=== PATIENT | female | born 1950 | race Caucasian/White ===

== ENCOUNTER 2017-01-14 10:46 | Emergency (ER) | payer OTHER, MEDICAID ==
[~2017-01-14] VITALS: Ht 162.6 cm; Wt 104.3 kg
[2017-01-14 11:00] VITALS: BP 109/57
--- NOTE | 2017-01-14 11:50 | NUR ---
PATIENT WHEELCHAIR ASSISTED TO BED 5.
--- NOTE | 2017-01-14 12:05 | NUR ---
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 WILL CONTINUE TO MONITOR.
[2017-01-14] MEDS ORDERED: BELLADONNA/PHENOBARBITAL 1 TAB PO ONE (12:20)
[2017-01-14] MEDS ORDERED: ALUMINUM HYD/MAG/SIMETHICONE 30 ML UDC PO ONE (12:20)
[2017-01-14] MEDS ORDERED: LIDOCAINE VISCOUS 2% 20 ML UDC PO ONE (12:20)
--- NOTE | 2017-01-14 12:40 | NUR ---
XRAY AT BEDSIDE.
[2017-01-14] MEDS ORDERED: DICYCLOMINE HCL LIQUID 10 MG/5 ML UDC PO ONE (12:45)
[2017-01-14] MEDS ORDERED: ASPIRIN 325 MG TAB PO ONE (12:50)
[2017-01-14] MEDS ORDERED: LOSARTAN POTAS100 MG PO (13:52)
[2017-01-14] MEDS ORDERED: GLUCOTROL10 MG PO (13:52)
[2017-01-14] MEDS ORDERED: Q-PAP325 MG PO (13:52)
[2017-01-14] MEDS ORDERED: TOPAMAX100 MG PO (13:52)
[2017-01-14] MEDS ORDERED: KEPPRA750 MG PO (13:52)
[2017-01-14] MEDS ORDERED: ATIVAN1 MG PO (13:52)
[2017-01-14] MEDS ORDERED: NORCO 325 MG-51 TAB PO (13:52)
[2017-01-14] MEDS ORDERED: ZOCOR20 MG PO (13:52)
[2017-01-14] MEDS ORDERED: PROTONIX40 MG PO (13:52)
--- NOTE | 2017-01-14 14:30 | NUR ---
Patient appears to be resting comfortably in bed. Vital Signs within normal limits. Respirations even and unlabored. TRENCH DIGGING MACHINE OPERATOR AT BEDSIDE; WILL CONTINUE TO MONITOR.
--- NOTE | 2017-01-14 15:20 | NUR ---
IV removed, catheter intact and site benign. Applied folded 4x4 gauze and tape to stop bleeding. PT TOLERATED PROCEDURE WELL.
[2017-01-14 15:25] VITALS: BP 108/69
--- NOTE | 2017-01-14 15:25 | NUR ---
Patient discharged with v/s stable. Written and verbal after care instructions given and explained. Patient alert, oriented and verbalized understanding of instructions. Wheel Chair Assisted with by caregiver. All questions addressed prior to discharge. ID band removed. Patient advised to follow up with PMD. Rx of FLOMAX 0.4MG CAP & CIPROFLOXACIN HYDROCHLORIDE 500MG TAB given. Patient educated on indication of medication including possible reaction and side effects. Opportunity to ask questions provided and answered.
== END 2017-01-14 15:25 | disposition home or self-care (01) ==
LOC: MED 10:46
DX: N39.0 Urinary tract infection, site not specified (principal); N20.0 Calculus of kidney; I10 Essential (primary) hypertension
CPT/HCPCS: 36415; 71010; 74177; 80053; 81001; 82150; 82948; 83605; 83690; 84484; 85025; 87086; 87186; 93005; 99285; Q0092; Q9967

== ENCOUNTER 2019-03-15 21:32 | Inpatient (IN) | payer OTHER, MEDICAID ==
[~2019-03-15] VITALS: Ht 165.1 cm; Wt 101.6 kg
[~2019-03-15 21:32] MED LIST: ACET-6842 PO; GLIP10TA3 PO; HYDR-5122 PO; LEVE750T3 PO; LORA-476 PO; LOSA100T51 PO; PANT40EC PO; SIMV20TA1 PO; TOP100 PO
--- NOTE | 2019-03-15 21:32 | NUR ---
PT PAULA ROCHAS. TAKEN TO BED 4
[2019-03-15 21:35] VITALS: BP 128/72
--- NOTE | 2019-03-15 21:35 | NUR ---
PT BIBA TO ER WITH C/O BODY TWITCHING X1 DAY. PER STAFF AT [facility] AND [facility] NOTICED UNUSUAL TWITCHING THROUGHOUT THE DAY . STAFF REPORTS POSSIBLE SZ. PT HAS HX OF SEIZURES. PT WAS GIVEN ATIVAN. PER ASSOCIATE DEAN OF WOMEN, PT HAS NOT BEEN HERSELF, ALTERED, NOT BEING ABLE TO DO ADLS. ER MD MADE AWARE OF STATUS, SAFETY MEASURES INPLACE, SEIZURE PROTOCOL IN PLACE, SEIZURE PADS ON BED RAILS X 2, BED RAILS 2 X UP. PT IS A/O X3. PMH---SZ, DM, DEVELOPMENTAL
[2019-03-15] MEDS ORDERED: NACL 0.9% 500 ML IV SCH (21:50)
[2019-03-15] MEDS ORDERED: AZIT250T3 PO (21:59)
[2019-03-15] MEDS ORDERED: TAMS0.4C96 PO (21:59)
[2019-03-15] MEDS ORDERED: METH10TA PO (21:59)
[2019-03-15] MEDS ORDERED: DIVA250T PO (21:59)
[2019-03-15] MEDS ORDERED: MOM PO (21:59)
[2019-03-15] MEDS ORDERED: PANT40EC PO (21:59)
[2019-03-15] MEDS ORDERED: BISA5ECT43 PO (21:59)
[2019-03-15] MEDS ORDERED: LEVE1000 PO (21:59)
[2019-03-15 22:16] LABS: BASOPHILS % (AUTO) 0.5 % (0.0-2.0); HEMATOCRIT 33.9 % (36-48); HEMOGLOBIN 11.3 g/dL (12.0-16.0); LYMPHOCYTES # (AUTO) 2.1 K/uL (2.5-16.5); MEAN CORPUSCULAR HEMOGLOBIN 32 pg (27-31); MEAN CORPUSCULAR HGB CONC 33 g/dL (33-37); MEAN CORPUSCULAR VOLUME 96.5 fL (80-94); MONOCYTES # (AUTO) 0.5 K/uL (0.8-1.0); MONOCYTES % (AUTO) 5.7 % (1.7-9.3); NEUTROPHILS # (AUTO) 5.8 K/uL (1.8-7.7); NEUTROPHILS % (AUTO) 68.8 % (42.2-75.2); PLATELET COUNT (AUTO) 205 K/uL (140-450); RED BLOOD CELL COUNT(AUTO) 3.51 MIL/uL (4.20-5.40); WHITE BLOOD COUNT (AUTO) 8.5 K/uL (4.8-10.8)
[2019-03-15 22:28] LABS: ANION GAP 12.4 (8-16); CREATININE 1.6 mg/dL (0.6-1.3); POTASSIUM 4.4 mmol/L (3.5-5.1)
[2019-03-15 22:33] LABS: ALBUMIN 3.7 g/dL (3.4-5.0); TOTAL BILIRUBIN 0.3 mg/dL (0.0-1.0)
[2019-03-15 22:37] LABS: PROTHROMBIN TIME 10.1 secs (10.8-13.4)
--- NOTE | 2019-03-15 22:42 | NUR ---
STRAIGHT CATHETER WAS PERFORMED, PT TOLERATED WELL. U/A WAS COLLECTED.
[2019-03-15] MEDS ORDERED: ASPIRIN 81 MG TAB.CHEW PO ONE (22:55)
[2019-03-15 22:57] LABS: APPEARANCE,URINE CLEAR (CLEAR); BILIRUBIN,URINE NEGATIVE (NEGATIVE); BLOOD, URINE TRACE-I (NEGATIVE); COLOR,URINE YELLOW (YELLOW); LEUKOCYTE ESTERASE ,URINE NEGATIVE (NEGATIVE); NITRITE, URINE NEGATIVE (NEGATIVE); PH,URINE 7.5 (5.0-9.0); UGLUCOSE NEGATIVE (NEGATIVE)
[2019-03-15 23:13] LABS: RBC,URINE 0-5 /HPF (0-5); WBC,URINE 0-5 /HPF (0-5)
[2019-03-15] MEDS ORDERED: LORazepam 2 MG/ML VIAL IM/IVP PRN (23:20)
[2019-03-15] MEDS ORDERED: DOCUSATE SODIUM 100 MG GELCAP PO PRN (23:20)
[2019-03-15] MEDS ORDERED: ACETAMINOPHEN 325 MG TAB PO PRN (23:20)
[2019-03-15] MEDS ORDERED: NITROGLYCERIN 0.4 MG TAB SL PRN (23:20)
[2019-03-15] MEDS ORDERED: HYDROcodone/APAP 5/325 MG 1 TAB TAB PO PRN ×2 (23:20→23:25)
[2019-03-15] MEDS ORDERED: ONDANSETRON 4 MG/2 ML VIAL IM/IVP PRN (23:20)
[2019-03-15] MEDS ORDERED: MORPHINE SULFATE 2 MG/ML SYR IVP PRN (23:20)
[2019-03-15] MEDS ORDERED: ZOLPIDEM 5 MG TAB PO PRN (23:20)
[2019-03-15] MEDS ORDERED: MAGNESIUM HYDROXIDE 2400 MG/30 ML UDC PO SCH (23:25)
[2019-03-15] MEDS ORDERED: INSULIN LISPRO SLIDING SCALE 100 UNITS/ML VIAL SUBQ PRN (23:25)
[2019-03-15] MEDS ORDERED: DEXTROSE 50% 50 ML SYR IVP PRN (23:25)
[2019-03-15] MEDS ORDERED: LORazepam 1 MG TAB PO PRN (23:25)
--- NOTE | 2019-03-15 23:32 | NUR ---
PT TAKEN TO CT
[2019-03-15 23:37] LABS: BARBITURATE, URINE NEG. ng/ml (NEG <=200); BENZODIAZEPINE, URINE NEG. ng/mL (NEG <=200); CANNABINOID, URINE NEG. ng/mL (NEG <=50); COCAINE, URINE NEG. ng/mL (NEG <=300); OPIATE, URINE NEG. ng/mL (NEG <=2000); PHENCYCLIDINE SCREEN,URINE NEG. ng/mL (NEG <=25)
--- NOTE | 2019-03-15 23:41 | NUR ---
PT RETURN FROM CT
--- NOTE | 2019-03-15 23:47 | NUR ---
Pt report given to SIMON BAILEY IN TELE. Transfer of care at this time.PT VSS
--- NOTE | 2019-03-15 23:47 | NUR ---
Patient will be admitted to care of DR. LAMA. Admited to TELEMETRY. Will go to [id number]. Belongings list completed. Report to SIMON BAILEY.
[2019-03-15 23:50] LABS: CHOL/HDL RATIO 3.7 (1-4.5); MAGNESIUM 2.1 mg/dL (1.8-2.4); PHOSPHORUS 3.4 mg/dL (2.5-4.9); THYROID STIMULATING HORMONE 41.36 uIU/mL (0.34-3.74)
--- NOTE | 2019-03-15 23:50 | NUR ---
ADMITTED THIS 68 YEAR OLD FEMALE PER ALEKSEY FROM ER WITH CC OF SEIZURE/MUSCLE TWITCHING AND ALOC, TRANSFERRED TO BED, ASSESSMENT DONE, VITAL SIGNS STABLE, DENIES ANY PAIN OR SOB, AAOX3, HX OF DEVELOPMENTAL DELAY, ABLE TO MAKE NEEDS KNOWN, OPEN WOUNDS NOTED ON LEFT ARM AND HAND, PICS TAKEN, ORIENTED TO ROOM AND CALL LIGHT, SEIZURE PRECAUTION WITH SIDE RAILS PADDED, SAFETY MEASURES IN PLACE, CALL LIGHT WITHIN REACH.
[2019-03-16] MEDS ORDERED: MAGNESIUM HYDROXIDE 2400 MG/30 ML UDC PO PRN (00:15)
[2019-03-16] MEDS: NACL 0.9% 1,000 ML IV SCH ×3 (00:27→23:48)
[2019-03-16 00:30] VITALS: BP 98/50
[2019-03-16] MEDS ORDERED: hePARIN / DEXT 5% PREMIX 250 ML IV SCH (00:55)
[2019-03-16] MEDS ORDERED: HEPARIN PER PHARMACY MC PRN (00:55)
[2019-03-16] MEDS: hePARIN / DEXT 5% PREMIX 250 ML IV SCH ×2 (02:02→08:58)
--- NOTE | 2019-03-16 02:05 | NUR ---
HEPARIN DRIP STARTED AT 9ML/H, PT EASILY AROUSABLE, DENIES ANY PAIN OR SOB, MONITORED CLOSELY.
[2019-03-16 04:00] VITALS: BP 124/77
--- NOTE | 2019-03-16 04:00 | NUR ---
PT SLEEPING, EASILY AROUSABLE, VITAL SIGNS STABLE, DENIES ANY PAIN, NO SOB NOTED, HEPARIN DRIP INFUSING WELL AT 9ML/H, MONITORED CLOSELY.
--- NOTE | 2019-03-16 04:50 | NUR ---
PT VOIDED FREELY, CLEANED AND REPOSITIONED, DENIES ANY PAIN, HEPARIN DRIP INFUSING WELL, MONITORED CLOSELY.
[2019-03-16] MEDS: PANTOPRAZOLE 40 MG TABEC PO SCH (05:46)
--- NOTE | 2019-03-16 05:47 | NUR ---
PT SLEEPING, EASILY AROUSABLE, BLOOD SUGAR CHECKED WITH 114 RESULT, DUE PROTONIX TAKEN WITH WATER, TOLERATED WELL, NO EPISODE OF SEIZURE ACTIVITY SINCE ADMISSION, MONITORED CLOSELY.
[2019-03-16 06:10] LABS: ANION GAP 14.5 (8-16); CREATININE 1.4 mg/dL (0.6-1.3); POTASSIUM 4.5 mmol/L (3.5-5.1)
[2019-03-16 06:28] LABS: MAGNESIUM 2.2 mg/dL (1.8-2.4); PHOSPHORUS 3.1 mg/dL (2.5-4.9)
[2019-03-16 06:29] LABS: BASOPHILS # (AUTO) 0.1 K/uL (0.00-0.22); BASOPHILS % (AUTO) 0.6 % (0.0-2.0); RED CELL DISTRIBUTION WIDTH 15.2 % (11.6-13.7)
[2019-03-16] MEDS: glipiZIDE 10 MG TAB PO SCH ×2 (06:30→16:24)
[2019-03-16] MEDS: LEVOTHYROXINE 0.025 MG TAB PO SCH (06:30)
[2019-03-16] MEDS: BLOOD GLUCOSE MONITORING 1 DEV DEV FS SCH ×4 (06:32→20:20)
--- NOTE | 2019-03-16 06:35 | NUR ---
DR SHERIDAN AT BEDSIDE EXAMINING THE PT, DUE PO MEDICATION ADMINISTERED, COLACE GIVEN PRN FOR CONSTIPATION.
[2019-03-16 06:39] LABS: EOSINOPHILS % (AUTO) 0.2 % (0.0-4.0); HEMATOCRIT 33.1 % (36-48); HEMOGLOBIN 11.2 g/dL (12.0-16.0); LYMPHOCYTES # (AUTO) 3.9 K/uL (2.5-16.5); MEAN CORPUSCULAR HEMOGLOBIN 33 pg (27-31); MEAN CORPUSCULAR HGB CONC 34 g/dL (33-37); MEAN CORPUSCULAR VOLUME 98.1 fL (80-94); MONOCYTES # (AUTO) 0.5 K/uL (0.8-1.0); MONOCYTES % (AUTO) 4.8 % (1.7-9.3); NEUTROPHILS % (AUTO) 57.4 % (42.2-75.2); PLATELET COUNT (AUTO) 212 K/uL (140-450); RED BLOOD CELL COUNT(AUTO) 3.37 MIL/uL (4.20-5.40); WHITE BLOOD COUNT (AUTO) 10.5 K/uL (4.8-10.8)
--- NOTE | 2019-03-16 07:18 | NUR ---
PT AWAKE, NO SIGNS OF DISTRESS, REPORT GIVEN TO RN VIC FOR CONTINUITY OF CARE.
--- NOTE | 2019-03-16 07:30 | NUR ---
PATIENT WAS AWAKE, ALERT. RESPIRATION EVEN, UNLABOR ON ROOM AIR. SKIN DRY AND WARM. IV PATENT AND INTACT. DENIED PAIN, SOB AT THIS TIME. PLAN OF CARE WAS DISCUSSED WITH PATIENT. BED AT LOW POSITION, SIDE RAILS UP. CALL LIGHT WITHIN REACH. IRRIGATION ENGINEER WAS AT BEDSIDE
[2019-03-16 08:00] VITALS: BP 105/40
--- NOTE | 2019-03-16 08:48 | NUR ---
PATIENT HAS BEEN SCREENED AND CATEGORIZED MODERATE NUTRITION RISK. PATIENT WILL BE SEEN WITHIN 3-5 DAYS OF ADMISSION. 03/18/19D[address]
[2019-03-16] MEDS: TOPIRAMATE 100 MG TAB PO SCH ×2 (08:49→20:08)
[2019-03-16] MEDS: levETIRAcetam 500 MG TAB PO SCH ×2 (08:49→20:07)
[2019-03-16] MEDS: TAMSULOSIN 0.4 MG CAP PO SCH (08:49)
[2019-03-16] MEDS: ASCORBIC ACID 500 MG TAB PO SCH (08:50)
[2019-03-16] MEDS: FERROUS SULFATE 325 MG TABEC PO SCH (08:50)
[2019-03-16] MEDS: ASPIRIN 81 MG TAB.CHEW PO SCH (08:50)
[2019-03-16] MEDS: METOPROLOL 25 MG TAB PO SCH ×2 (08:50→20:07)
[2019-03-16] MEDS: LISINOPRIL 5 MG TAB PO SCH (08:50)
[2019-03-16] MEDS ORDERED: PANTOPRAZOLE 40 MG TABEC PO SCH (09:00)
--- NOTE | 2019-03-16 10:15 | NUR ---
PATIENT WAS RESTING COMFORTABLY. PERINEAL CARE WAS GIVEN. NO DISTRESS NOTED AT THIS TIME
[2019-03-16] MEDS ORDERED: NACL 0.9% 250 ML IV SCH (10:35)
--- NOTE | 2019-03-16 10:58 | NUR ---
WOUND CARE EVALUATION NOTE: REASON FOR EVALUATION: LEFT FOREARM WOUND SKIN ASSESSMENT DONE WITH THIS 68 Y/O MALE PT. ADMITTED FROM [facility] TO [facility] WITH INITIAL DX OF SEIZURE ACTIVITY. PAST MEDICAL HX: DM, SEIZURE, DEVELOPMENTAL DELAY. ALL ABOVE INFORMATION OBTAINED FROM ADMISSION H&P. PT. IS AAX3, PT SKIN IS WARM AND MOIST, BILATERAL PEDAL PULSES PRESENT AND NORMAL. INCONTINENT BOWEL AND BLADDER. ON ROOM AIR. NEEDS ONE PERSON ASSISTANCE IN TURNING. PLAN OF CARE AND PRESSURE PREVENTIVE MEASURES DISCUSSED WITH PRIMARY RN. AND PT. PT VERBALIZES UNDERSTANDING. INTEGUMENTARY -INTERTRIGO TO LOWER ABDOMINAL FOLDS AND R/L GROINS, REDNESS WITH SKIN INTACT -LEFT FOREARM SKIN TEAR 2X3 CM WITH SUPERFICIAL DEPTH, WOUND BED IS PINK AND MOIST, DAVE-WOUND SKIN INTACT, NO ODOR. RECOMMENDATIONS: -CLEANSE LEFT UPPER ARM SKIN TEAR WITH NS. PAT DRY, APPLY VESATEL DRESSING COVER WITH DRY DRESSING Q7DAYS AND PRN IF SOILING -TURN AND REPOSITION PATIENT Q 2H OFFLOAD SACRALCOCCYX, LEFT AND RIGHT HEELS -ASSESS AND MONITOR SKIN CONDITION DURING POSITION CHANGE, PLEASE PAY ATTENTION TO FEET AND HEELS -OFFLOAD BILATERAL HEELS BY PLACING PILLOWS UNDER CALVES AT ALL TIMES, UNLESS OTHERWISE CONTRAINDICATED -PRESSURE REDISTRIBUTION SURFACE THERAPY RECOMMENDATIONS DISCUSSED WITH PRIMARY RN AND DR. GEE PLEASE CONTACT WOUND CARE NURSE FOR ANY QUESTIONS AND CHANGES IN SKIN CONDITION.
[2019-03-16] MEDS ORDERED: INTERDRY CLOTH TP SCH (11:10)
--- NOTE | 2019-03-16 11:12 | NUR ---
HEPARIN WAS D/NATALIYA PER ORDER. CONSENT FOR CT WITH CONTRAST WAS SIGNED BY PATIENT.
--- NOTE | 2019-03-16 11:30 | NUR ---
PATIENT'S BS WAS 61, 2 ORANGE JUICE WERE GIVEN. WILL RECHECK BS
--- NOTE | 2019-03-16 11:51 | NUR ---
PATIENT WAS AWAKE, ALERT. RESPIRATION EVEN, UNLABOR ON ROOM AIR. NO DISTRESS NOTED AT THIS TIME. INBOUND SALES ADVISOR WAS AT BEDSIDE
--- NOTE | 2019-03-16 12:19 | NUR ---
PATIENT WAS TRANSFERRED TO CT SCAN. PATIENT IS STABLE AT THIS TIME
--- NOTE | 2019-03-16 14:21 | NUR ---
PATIENT WAS ASSISTED TO SIT AT [facility] FOR LUNCH. PATIENT WAS INSTRUCTED TO NOTIFY STAFF WHEN GOING BACK TO BED. NO DISTRESS NOTED AT THIS TIME
--- NOTE | 2019-03-16 15:15 | NUR ---
PATIENT WAS FOUND HOLDING A PULLED OUT IV, NO ACTIVE BLEEDING SEEN. PATIENT APPEARED DISORIENTED, UNABLE TO ANSWER QUESTIONS. PATIENT WAS REPOSITIONED, PERINEAL CARE WAS GIVEN. PATIENT WAS REORIENTED TO ROOM, STAFF, AND CALL LIGHT. PATIENT WAS EXPLAINED NOT TO PULL OUT IV DUE TO RISK OF BLEEDING. PATIENT VERBALIZED UNDERSTANDING
--- NOTE | 2019-03-16 15:50 | NUR ---
PATIENT WAS SLEEPING COMFORTABLY. RESPIRATION EVEN, UNLABOR ON ROOM AIR. DENIED PAIN, SOB. NO DISTRESS NOTED AT THIS TIME
[2019-03-16 16:00] VITALS: BP 112/58
--- NOTE | 2019-03-16 17:37 | NUR ---
PATIENT COMPLAINED OF CONSTIPATIN. MEDS WERE GIVEN PER ORDER
--- NOTE | 2019-03-16 18:08 | NUR ---
PATIENT WAS AWAKE, ALERT, EATING DINNER COMFORTABLY. RESPIRATION EVEN, UNLABOR ON ROOM AIR. SKIN DRY AND WARM. IV PATENT AND INTACT. NO DISTRESS NOTED AT THIS TIME
--- NOTE | 2019-03-16 19:08 | NUR ---
ENDORSEMENT GIVEN TO SPINE SURGEON NURSE. PATIENT IS STABLE AT THIS TIME.
--- NOTE | 2019-03-16 19:10 | NUR ---
RECEIVED PT IN STABLE CONDITION FROM AM NURSE. AWAKE,ALERT AND ORIENTED X3. WITH NO C/O ANY DISCOMFORT NOR PAIN NOTED. BEDREST. BED ON LOWEST POSITION. SIDE RAILS UP X2. PADDED FOR SEIZURE PRECAUTION. HAS IVF INFUSING WELL ON THE RT HAND G#22. CLEAR AND PATENT. PLAN OF CARE DISCUSSED . NEED REINFORCEMENT. WILL CONTINUE TO MONITOR.
[2019-03-16 19:47] VITALS: BP 120/70
[2019-03-16] MEDS: DIVALPROEX 250 MG TABEC PO SCH (20:07)
[2019-03-16] MEDS: SIMVASTATIN 20 MG TAB PO SCH (20:08)
--- NOTE | 2019-03-16 20:20 | NUR ---
BLOOD SUGAR WAS CHECKED RESULT 163. PT REFUSED ANY INSULIN. PT HAD SOME PUDDING. WILL CONTINUE TO MONITOR.
[2019-03-16] MEDS ORDERED: ATORVASTATIN 20 MG TAB PO SCH (21:00)
--- NOTE | 2019-03-16 21:10 | NUR ---
US SOFT TISSUE DONE AT BEDSIDE. WILL FOLLOW UP RESULT.
--- NOTE | 2019-03-16 21:30 | NUR ---
PT REPOSITIONED FOR COMFORT. CLEANED AND KEPT DRY. ABDOMINAL FOLDS /GROIN WITH SLIGHT REDNESS. INTER DRY IN PLACED.
--- NOTE | 2019-03-16 22:30 | NUR ---
TALKED TO DR. SHAH ,RESIDENT ON DUTY TO CLARIFY ABOUT DIET ORDER.
[2019-03-16 23:55] VITALS: BP 103/61
--- NOTE | 2019-03-17 00:59 | NUR ---
MADE ROUNDS. PT IS ASLEEP. NO S/S OF ANY DISCOMFORT NOTED. WILL CONTINUE TO MONITOR.
--- NOTE | 2019-03-17 02:00 | NUR ---
PT IS ASLEEP. NO S/S OF ANY DISCOMFORT NOR PAIN NOTED.
[2019-03-17] MEDS: NACL 0.9% 1,000 ML IV SCH ×3 (03:16→23:00)
--- NOTE | 2019-03-17 03:45 | NUR ---
MADE ROUNDS. PT IS ASLEEP. NO S/S OF ANY DISTRESS NOR DISCOMFORT NOTED.
--- NOTE | 2019-03-17 05:30 | NUR ---
BLOOD WAS DRAWN THIS AM. WILL FOLLOW UP RESULT.
[2019-03-17] MEDS: PANTOPRAZOLE 40 MG TABEC PO SCH (05:59)
[2019-03-17] MEDS: LEVOTHYROXINE 0.025 MG TAB PO SCH (05:59)
[2019-03-17] MEDS: BLOOD GLUCOSE MONITORING 1 DEV DEV FS SCH ×4 (06:03→20:09)
--- NOTE | 2019-03-17 06:10 | NUR ---
BLOOD SUGAR THIS AM WAS CHECKED RESULT 91.
[2019-03-17] MEDS: glipiZIDE 10 MG TAB PO SCH ×2 (06:27→16:29)
[2019-03-17 06:44] LABS: BASOPHILS % (AUTO) 0.5 % (0.0-2.0); EOSINOPHILS % (AUTO) 0.1 % (0.0-4.0); HEMATOCRIT 31.7 % (36-48); HEMOGLOBIN 10.7 g/dL (12.0-16.0); LYMPHOCYTES # (AUTO) 1.9 K/uL (2.5-16.5); MEAN CORPUSCULAR HEMOGLOBIN 33 pg (27-31); MEAN CORPUSCULAR HGB CONC 34 g/dL (33-37); MEAN CORPUSCULAR VOLUME 97.1 fL (80-94); MONOCYTES # (AUTO) 0.4 K/uL (0.8-1.0); MONOCYTES % (AUTO) 5.7 % (1.7-9.3); NEUTROPHILS # (AUTO) 4.5 K/uL (1.8-7.7); NEUTROPHILS % (AUTO) 65.7 % (42.2-75.2); PLATELET COUNT (AUTO) 189 K/uL (140-450); RED BLOOD CELL COUNT(AUTO) 3.27 MIL/uL (4.20-5.40); RED CELL DISTRIBUTION WIDTH 15.5 % (11.6-13.7); WHITE BLOOD COUNT (AUTO) 6.8 K/uL (4.8-10.8)
[2019-03-17 07:10] LABS: ANION GAP 11.8 (8-16); CARBON DIOXIDE 24.8 mmol/L (21-32); CREATININE 1.5 mg/dL (0.6-1.3); POTASSIUM 4.6 mmol/L (3.5-5.1)
--- NOTE | 2019-03-17 07:20 | NUR ---
ENDORSED PT IN STABLE CONDITION TO AM NURSE.
[2019-03-17 07:24] LABS: MAGNESIUM 2.3 mg/dL (1.8-2.4); PHOSPHORUS 3.3 mg/dL (2.5-4.9)
--- NOTE | 2019-03-17 07:30 | NUR ---
RECEIVED BED SIDE REPORT FROM GENERAL EDUCATION INSTRUCTOR RN. PT SLEEPING, ON RA IN NO RESPIRATORY DISTRESS, APPEARS IN NO PAIN. ON SEIZURE PRECAUTION, SEIZURE PADS ON RAILS, BED LOW, CALL LIGHT WITHIN REACH. SKIN TEAR L FOREARM, VERSATEL DRESSING ON. R FOREARM 22G RUNNING NS 100CC/HR. A/O X2. INCONTINENT, PADS PLACED. OCCULT BLOOD STILL NEED TO BE DONE. WILL CONTINUE TO MONITOR
[2019-03-17 08:00] VITALS: BP 98/57
[2019-03-17] MEDS: levETIRAcetam 500 MG TAB PO SCH ×2 (08:30→21:22)
[2019-03-17] MEDS: ASCORBIC ACID 500 MG TAB PO SCH (08:31)
[2019-03-17] MEDS: FERROUS SULFATE 325 MG TABEC PO SCH (08:31)
[2019-03-17] MEDS: ASPIRIN 81 MG TAB.CHEW PO SCH (08:31)
[2019-03-17] MEDS: TAMSULOSIN 0.4 MG CAP PO SCH (08:31)
[2019-03-17] MEDS: TOPIRAMATE 100 MG TAB PO SCH ×2 (08:31→21:22)
[2019-03-17] MEDS: LISINOPRIL 5 MG TAB PO SCH (09:00)
[2019-03-17] MEDS: METOPROLOL 25 MG TAB PO SCH ×2 (09:00→21:21)
--- NOTE | 2019-03-17 11:15 | NUR ---
PATIENT EVALUATED BY PT. PT WALKED 30FT WITH WALKER AND FELT TIRED. PT COMPLAINED THAT HER LEFT HIP STARTED TO HURT. GOT A CHAIR FOR PT TO SIT IN IN THE HALLWAY. PT RESTED FOR 5 MIN. WALKED PT BACK TO BED. VS STABLE
[2019-03-17 12:35] LABS: FOLIC ACID 8.1 ng/mL (>3.0)
--- NOTE | 2019-03-17 13:58 | NUR ---
PT'S BP WAS 94/46. NOTIFIED AND SHE CAME TO EVALUATE PT. TOOK MANUAL BP CUFF BUT STILL WITHIN THE SAME RANGE. ORDERS TO BOLUS 250CC
[2019-03-17] MEDS ORDERED: NACL 0.9% 250 ML IV SCH (15:40)
[2019-03-17 16:00] VITALS: BP 96/51
--- NOTE | 2019-03-17 16:26 | NUR ---
BP 96/51, PT CONTINUES TO BE ASYMPTOMATIC, WILL CONTINUE TO MONITOR
[2019-03-17 16:42] LABS: ANION GAP 9.7 (8-16); CARBON DIOXIDE 25.4 mmol/L (21-32); CREATININE 1.5 mg/dL (0.6-1.3); POTASSIUM 4.1 mmol/L (3.5-5.1)
--- NOTE | 2019-03-17 17:26 | NUR ---
RECEIVED CALL FROM LAB SAYING PT POSITIVE MRSA NARES. LET FLASK FITTER AIMEE KNOW AND LET KNOW. ADDED CONTACT ISO AND STOP SIGNS BY DOOR.
[2019-03-17] MEDS: MUPIROCIN CA NASAL 2% 1GM TUBE NS SCH (18:25)
[2019-03-17] MEDS: CHLORHEXADINE GLUC 2% CLOTH TP SCH (18:25)
--- NOTE | 2019-03-17 19:05 | NUR ---
RECEIVED REPORT FROM DAY SHIFT NURSE FOR CONTINUITY OF CARE. PATIENT SITTING UP IN BED, AWAKE, WITH SISTER AT BEDSIDE. PATIENT IS ON ROOM AIR, STABLE CONDITION, DENIES PAIN AT THIS TIME. BED IS IN LOW POSITION, SIDE RAILS ARE UP, SEIZURE PROTOCOL IN PLACE, AND CALL LIGHT WITHIN REACH. WILL MONITOR PATIENT THROUGHOUT SHIFT.
[2019-03-17 20:00] VITALS: BP 112/68
[2019-03-17] MEDS: SIMVASTATIN 20 MG TAB PO SCH (21:20)
[2019-03-17] MEDS: DIVALPROEX 250 MG TABEC PO SCH (21:21)
--- NOTE | 2019-03-17 21:21 | NUR ---
PATIENT REPORTED LEFT LEG PAIN WITH RATE OF 6/10. ADMINISTERED MEDICATIONS ORDERED AND PATIENT TOLERATED WELL. REORIENTED PATIENT TO USE OF CALL LIGHT WHEN NEEDED. WILL CONTINUE TO MONITOR PATIENT.
--- NOTE | 2019-03-17 22:21 | NUR ---
MADE ROUNDS AND PATIENT IS LYING DOWN IN BED APPEARS TO BE ASLEEP. WILL CONTINUE TO MONITOR PATIENT.
[2019-03-18] VITALS: BP 114/68
--- NOTE | 2019-03-18 | NUR ---
MADE ROUNDS, PATIENT LYING DOWN IN BED, ASLEEP. VITAL SIGNS TAKEN AND CHARTED. PATIENT DENIES PAIN AT THIS TIME. WILL CONTINUE TO MONITOR PATIENT.
--- NOTE | 2019-03-18 02:05 | NUR ---
MADE ROUNDS. PATIENT LYING DOWN IN BED, ASLEEP WITH NOT SIGNS OF DISTRESS NOTED. WILL CONTINUE TO MONITOR PATIENT.
[2019-03-18] MEDS: BLOOD GLUCOSE MONITORING 1 DEV DEV FS SCH ×4 (06:00→21:36)
--- NOTE | 2019-03-18 06:00 | NUR ---
BLOOD SUGAR WAS CHECKED RESULT 59. PT IS AWAKE AND ALERT . APPLE JUICE WITH APPLESAUCE GIVEN. TOLERATE WELL. WILL RECHECK BS LATER.
[2019-03-18] MEDS: LEVOTHYROXINE 0.025 MG TAB PO SCH (06:04)
[2019-03-18] MEDS: PANTOPRAZOLE 40 MG TABEC PO SCH (06:04)
[2019-03-18 06:12] LABS: ANION GAP 11.3 (8-16); CREATININE 1.5 mg/dL (0.6-1.3); POTASSIUM 4.3 mmol/L (3.5-5.1)
[2019-03-18 06:15] LABS: HEMATOCRIT 32.3 % (36-48); HEMOGLOBIN 10.6 g/dL (12.0-16.0); MEAN CORPUSCULAR HEMOGLOBIN 33 pg (27-31); MEAN CORPUSCULAR HGB CONC 33 g/dL (33-37); MEAN CORPUSCULAR VOLUME 98.5 fL (80-94); PLATELET COUNT (AUTO) 164 K/uL (140-450); RED BLOOD CELL COUNT(AUTO) 3.27 MIL/uL (4.20-5.40); RED CELL DISTRIBUTION WIDTH 15.2 % (11.6-13.7)
[2019-03-18 06:18] LABS: MAGNESIUM 2.2 mg/dL (1.8-2.4); PHOSPHORUS 3.4 mg/dL (2.5-4.9)
[2019-03-18 06:47] LABS: LYMPHOCYTES % (MANUAL) 29 % (20-46); MONOCYTES % (MANUAL) 5 % (5-12)
--- NOTE | 2019-03-18 06:54 | NUR ---
RECHECKED BLOOD SUGAR AT THIS TIME RESULT WENT UP TO 102. PT IS AWAKE,ALERT AND ORIENTED X2.
[2019-03-18] MEDS: glipiZIDE 10 MG TAB PO SCH ×2 (06:55→17:19)
[2019-03-18] MEDS: NACL 0.9% 1,000 ML IV SCH ×2 (07:02→19:10)
--- NOTE | 2019-03-18 07:02 | NUR ---
ENDORSED TO AM SHIFT NURSE PATIENT'S CONTINUITY OF CARE. PATIENT IS AWAKE, ALERT, ORIENTED X 2. DENIES PAIN AT THIS TIME.
[2019-03-18 08:00] VITALS: BP 106/58
[2019-03-18] MEDS: LISINOPRIL 5 MG TAB PO SCH (09:00)
[2019-03-18] MEDS: ASCORBIC ACID 500 MG TAB PO SCH (09:29)
[2019-03-18] MEDS: levETIRAcetam 500 MG TAB PO SCH ×2 (09:29→21:33)
[2019-03-18] MEDS ORDERED: CALCIUM CARBONATE 500 MG TAB PO SCH (09:30)
[2019-03-18] MEDS: TAMSULOSIN 0.4 MG CAP PO SCH (09:30)
[2019-03-18] MEDS: ASPIRIN 81 MG TAB.CHEW PO SCH (09:30)
[2019-03-18] MEDS: FERROUS SULFATE 325 MG TABEC PO SCH (09:30)
[2019-03-18] MEDS: TOPIRAMATE 100 MG TAB PO SCH ×2 (09:30→21:34)
[2019-03-18] MEDS: METOPROLOL 25 MG TAB PO SCH ×2 (10:12→21:34)
--- NOTE | 2019-03-18 10:19 | NUR ---
PER DR SHERIDAN HOLD LISINOPRIL AND GIVE METOPROLOL. B/P 106/[address] ADMINISTERED MEDS DR SHAYNE. EDUCATED ON SIDE EFFECTS. PATIENT TOLERATED WELL. SISTER AT BEDSIDE
[2019-03-18 11:47] LABS: FREE T4 (FREE THYROXINE) 0.72 ng/dL (0.76-1.46); THYROID STIMULATING HORMONE 38.64 uIU/mL (0.34-3.74)
--- NOTE | 2019-03-18 12:11 | NUR ---
PT SLEEPING COMFORTABLY IN BED, IN NO RESPIRATORY DISTRESS. SISTER NOTIFIED ME EARLIER THAT SHE WANTED A NEPHRO CONSULT FOR PT AND THAT SHE NEEDS REFERRAL FOR ACCOUNTING DIRECTOR FOR F/U FOR THYROID NODULE. WILL NOTIFY
[2019-03-18] MEDS ORDERED: LEVO0.0211 PO (12:16)
--- NOTE | 2019-03-18 13:52 | NUR ---
SISTER AT BEDSIDE. PT IN STABLE CONDITION. ATE 100% OF LUNCH. WILL CONTINUE TO MONITOR
--- NOTE | 2019-03-18 15:04 | NUR ---
03/18/19 RD INITIAL ASSESSMENT COMPLETED PLEASE REFER TO NUTRITION ASSESSMENT UNDER CARE ACTIVITY FOR ESTIMATED NUTRITIONAL NEEDS. 1. CONTINUE CCHO [address] TOL[address] 2. RD TO FOLLOW-UP 3-5 DAYS, MODERATE RISK DALJIT MONGE RD
--- NOTE | 2019-03-18 15:38 | NUR ---
Triage Licensed Practical Nurse Note: I faxed inquiry to [facility]. Per , patient's anticipated discharge date is tomorrow. Per Dawood from [facility] , they will send an RN to [facility] on Saturday03/20/19. I called and spoke with nursing manager of [facility] , Ml, I informed her home health services have been arranged she verbalized understanding. I verified [facility]'s address [address] [place] [id number] with Ml.
[2019-03-18 16:00] VITALS: BP 112/63
[2019-03-18] MEDS: MUPIROCIN CA NASAL 2% 1GM TUBE NS SCH (17:18)
[2019-03-18] MEDS: CHLORHEXADINE GLUC 2% CLOTH TP SCH (17:19)
--- NOTE | 2019-03-18 17:27 | NUR ---
ADMINISTERED BACTROBAN AND WIPED PT'S BODY WITH CHLORHEXIDINE. PER AUTOGLAZIER, SHE SAID THAT SHE GAVE HER A CHLORHEXIDINE BATH AROUND 1500. GAVE GLIPIZIDE WITH FOOD BECAUSE SUGAR WAS 98. HUNG NEW PRIMARY BAG
--- NOTE | 2019-03-18 19:36 | NUR ---
ENDORSED PT TO MACHINE PRINTER HOSE RN. PT IN STABLE CONDITION
[2019-03-18 20:00] VITALS: BP 112/67
[2019-03-18] MEDS: DIVALPROEX 250 MG TABEC PO SCH (21:33)
[2019-03-18] MEDS: SIMVASTATIN 20 MG TAB PO SCH (21:35)
[2019-03-19] MEDS: NACL 0.9% 1,000 ML IV SCH (03:50)
[2019-03-19 05:39] LABS: ANION GAP 13.4 (8-16); CARBON DIOXIDE 21.9 mmol/L (21-32); CREATININE 1.5 mg/dL (0.6-1.3); POTASSIUM 4.3 mmol/L (3.5-5.1)
[2019-03-19 05:46] LABS: MAGNESIUM 2.1 mg/dL (1.8-2.4)
--- NOTE | 2019-03-19 06:00 | NUR ---
BS DROPPED TO [address] SHERIDAN AWARE. GAVE D50% IV PUSH. AND ORDERED TO CHANGE IVF TO D5 1/2 NS AT 60
[2019-03-19] MEDS: LEVOTHYROXINE 0.025 MG TAB PO SCH (06:07)
[2019-03-19] MEDS ORDERED: DEXT 5% / NACL 0.45% 1,000 ML IV SCH (06:20)
[2019-03-19] MEDS: PANTOPRAZOLE 40 MG TABEC PO SCH (06:24)
[2019-03-19] MEDS: BLOOD GLUCOSE MONITORING 1 DEV DEV FS SCH ×2 (06:25→11:30)
--- NOTE | 2019-03-19 07:01 | NUR ---
RETAKE BLOO9D SUGAR 124 MG/DL.
[2019-03-19 07:08] LABS: BASOPHILS % (AUTO) 0.5 % (0.0-2.0); EOSINOPHILS % (AUTO) 0.1 % (0.0-4.0); HEMATOCRIT 29.1 % (36-48); HEMOGLOBIN 9.7 g/dL (12.0-16.0); LYMPHOCYTES % (AUTO) 29.2 % (20.5-51.1); MEAN CORPUSCULAR HEMOGLOBIN 33 pg (27-31); MEAN CORPUSCULAR HGB CONC 33 g/dL (33-37); MONOCYTES # (AUTO) 0.5 K/uL (0.8-1.0); MONOCYTES % (AUTO) 7.5 % (1.7-9.3); NEUTROPHILS # (AUTO) 4.4 K/uL (1.8-7.7); NEUTROPHILS % (AUTO) 62.7 % (42.2-75.2); PLATELET COUNT (AUTO) 178 K/uL (140-450); RED BLOOD CELL COUNT(AUTO) 2.94 MIL/uL (4.20-5.40); RED CELL DISTRIBUTION WIDTH 15.3 % (11.6-13.7)
--- NOTE | 2019-03-19 07:35 | NUR ---
RECEIVED REPORT FROM PORT CAPTAIN RN. PATIENT IN STABLE CONDITION. NO SIGNS OF DISTRESS ON RA. SAFETY PRECAUTIONS IN PLACE. WILL CONTINUE TO MONITOR.
[2019-03-19 08:00] VITALS: BP 114/65
[2019-03-19] MEDS ORDERED: glipiZIDE 10 MG TAB PO SCH (08:00)
--- NOTE | 2019-03-19 08:00 | NUR ---
HELD MORNING ANTIGLYCEMIC DUE TO RECENT EPISODE OF HYPOGLYCEMIA. WILL RECHECK GLUCOSE BEFORE LUNCH.
[2019-03-19] MEDS ORDERED: CHLO118S2 TP (08:20)
[2019-03-19] MEDS ORDERED: MUPI2CRE22 NS (08:20)
[2019-03-19] MEDS: FERROUS SULFATE 325 MG TABEC PO SCH (09:28)
[2019-03-19] MEDS: TAMSULOSIN 0.4 MG CAP PO SCH (09:28)
[2019-03-19] MEDS: LISINOPRIL 5 MG TAB PO SCH (09:29)
[2019-03-19] MEDS: TOPIRAMATE 100 MG TAB PO SCH (09:29)
[2019-03-19] MEDS: ASCORBIC ACID 500 MG TAB PO SCH (09:29)
[2019-03-19] MEDS: levETIRAcetam 500 MG TAB PO SCH (09:30)
[2019-03-19] MEDS: METOPROLOL 25 MG TAB PO SCH (09:30)
[2019-03-19] MEDS: ASPIRIN 81 MG TAB.CHEW PO SCH (09:30)
--- NOTE | 2019-03-19 09:40 | NUR ---
ADMINISTERED SCHEDULED MEDS, CLEANED AND REPOSITIONED PATIENT. PATIENT REFUSED HEPARIN AT THIS TIME.
--- NOTE | 2019-03-19 11:30 | NUR ---
GLUCOSE 73, NO INSULIN NEEDED. NO SIGNS OF DISTRESS. PATIENT STATES SHE FEELS FINE.
--- NOTE | 2019-03-19 14:18 | NUR ---
PATIENT RESTING IN BED WITH FAMILY AT BEDSIDE. NO SIGNS OF DISTRESS ON RA. SAFETY PRECAUTIONS IN PLACE. WILL CONTINUE TO MONITOR.
[2019-03-19 14:33] VITALS: BP 114/65
[2019-03-19 16:00] VITALS: BP 112/64
--- NOTE | 2019-03-19 16:50 | NUR ---
PATIENT DISCHARGED. PROVIDED DISCHARGE EDUCATION TO BOTH SISTER AND CAREGIVER/DIRECTOR AT [facility]. PATIENT IN STABLE CONDITION ON RA WITH NO SIGNS OF DISTRESS. REMOVED 22 G IV CATHETER FROM RIGHT FOREARM, TIP INTACT. PATIENT TRANSFERRED TO WHEELCHAIR WITH ASSISTANCE. PATIENT EXITED HOSPITAL VIA WHEELCHAIR, REMOVED WRISTBANDS. PATIENT WAS PLACED IN A TRANSPORT VAN BY CAREGIVER.
== END 2019-03-19 16:50 | disposition home health service (06) | DRG 100 ==
LOC: MED 21:32 → MMU 23:17 → MTU 23:43
PROVIDERS: ADMIT General Practice; ATTEND General Practice
DX: G40.909 Epilepsy, unspecified, not intractable, without status epilepticus (principal); N17.0 Acute kidney failure with tubular necrosis; G90.8 Other disorders of autonomic nervous system; E11.65 Type 2 diabetes mellitus with hyperglycemia; Z79.899 Other long term (current) drug therapy; D64.9 Anemia, unspecified; E05.90 Thyrotoxicosis, unspecified without thyrotoxic crisis or storm; J38.2 Nodules of vocal cords; E87.8 Other disorders of electrolyte and fluid balance, not elsewhere classified; E83.51 Hypocalcemia; E03.9 Hypothyroidism, unspecified
CPT/HCPCS: 36415; 70450; 70491; 71045; 71260; 76536; 80048; 80053; 80305; 81001; 82607; 82728; 82746; 82948; 83036; 83540; 83605; 83690; 83735; 83880; 84100; 84134; 84439; 84443; 84479; 84484; 85025; 85045; 85610; 85730; 87040; 87081; 87086; 93005; 93925; 93970; 96360; 97110; 97116; 97161-GP; 97530; 99285; C1758; J1644; J1815; J7030; Q0092; Q9967

== ENCOUNTER 2019-04-01 06:27 | Inpatient (IN) | payer OTHER, MEDICAID ==
[~2019-04-01] VITALS: Ht 175.3 cm; Wt 99.3 kg
[2019-04-01 06:27] VITALS: BP 124/61
[~2019-04-01 06:27] MED LIST changes: +BISA5ECT43 PO; +CHLO118S2 TP; +DIVA250T PO; +LEVE1000 PO; -LEVE750T3 PO; +MOM PO; +MUPI2CRE22 NS; +TAMS0.4C96 PO
--- NOTE | 2019-04-01 06:35 | NUR ---
LABS DRAWN BY RN AT IV START: L AC 20G, FLUSHED WELL W/O RESISTANCE; NO REDNESS OR SWELLING NOTED. PT TOLERATED WELL. BLOOD SAMPLES PLACED IN RED BIN FOR LAB DE ICER INSTALLER.
[2019-04-01] MEDS ORDERED: NACL 0.9% 500 ML IV ONE (06:40)
--- NOTE | 2019-04-01 06:45 | NUR ---
Verbal consent from patient for procedure; #15 FR Urinary catheter inserted utilizing sterile technique. Immediate return of clear yellow urine noted. Catheter removed tip intact. Urine sample collected and sent to lab. Pt tolerated procedure well.
[2019-04-01] MEDS ORDERED: DIVA250T PO (06:47)
--- NOTE | 2019-04-01 06:55 | NUR ---
EKG PERFORMED AT BEDSIDE. PT COVERED IN GOWN AND BLANKET DURING PROCEDURE
--- NOTE | 2019-04-01 06:55 | NUR ---
BEDSIDE EKG BEING PERFORMED BY NEEL CASAREZ.
--- NOTE | 2019-04-01 06:55 | NUR ---
69 Y/O F BIBA FROM [facility] FOR ALOC FROM PT'S BASELINE, S/P SEIZURE AT 2200 LAST NIGHT. GCS 14, PT IS CONFUSED. AAOX2 TO PERSON AND PLACE. DELAYED SPEECH. PERRL PRESENT. BILATERAL LUNG WINSTON CLEAR. O2 SATURATION MAINTAINED AT 96% ON ROOM AIR. SEIZURE PRECAUTIONS IN PLACE. BED IN LOWEST POSTION. ERMD NOTIFIED. WILL CONTINUE TO MONITOR. PMH: DM, EPILEPSY, GERD, HLD RX: RADHA SCHROEDER
--- NOTE | 2019-04-01 07:02 | NUR ---
PT TO RADIOLOGY BY OSEI PAGE VIA ALEKSEY.
[2019-04-01 07:11] LABS: BASOPHILS # (AUTO) 0.1 K/uL (0.00-0.22); BASOPHILS % (AUTO) 0.5 % (0.0-2.0); HEMATOCRIT 32.3 % (36-48); HEMOGLOBIN 10.8 g/dL (12.0-16.0); LYMPHOCYTES # (AUTO) 1.3 K/uL (2.5-16.5); LYMPHOCYTES % (AUTO) 8.6 % (20.5-51.1); MEAN CORPUSCULAR HEMOGLOBIN 32 pg (27-31); MEAN CORPUSCULAR HGB CONC 34 g/dL (33-37); MEAN CORPUSCULAR VOLUME 96.1 fL (80-94); MONOCYTES # (AUTO) 1.1 K/uL (0.8-1.0); MONOCYTES % (AUTO) 7.3 % (1.7-9.3); NEUTROPHILS % (AUTO) 83.6 % (42.2-75.2); PLATELET COUNT (AUTO) 179 K/uL (140-450); RED BLOOD CELL COUNT(AUTO) 3.36 MIL/uL (4.20-5.40); WHITE BLOOD COUNT (AUTO) 15.5 K/uL (4.8-10.8)
--- NOTE | 2019-04-01 07:11 | NUR ---
REPORT RECEIVED FROM LEO GILL.
--- NOTE | 2019-04-01 07:11 | NUR ---
REPORT GIVEN TO LEO BREWER. TRANSFER OF CARE AT THIS TIME.
[2019-04-01 07:17] LABS: CARBON DIOXIDE 25.8 mmol/L (21-32); CHLORIDE 107 mmol/L (98-107); CREATININE 1.6 mg/dL (0.6-1.3); GFR ARICAN-AMERICAN 41 mL/min (>90); GLUCOSE 132 mg/dL (74-106); POTASSIUM 4.8 mmol/L (3.5-5.1); SODIUM SERUM 142 mmol/L (136-145); UREA NITROGEN, BLOOD 45 mg/dL (7-18)
--- NOTE | 2019-04-01 07:19 | NUR ---
pt returned from ct via [facility]
[2019-04-01 07:21] LABS: ALBUMIN 3.5 g/dL (3.4-5.0); ASPARTATE AMINOTRANSFERASE 13 U/L (15-37); TOTAL BILIRUBIN 0.4 mg/dL (0.0-1.0); VALPROIC ACID 42 ug/ml (50-100)
[2019-04-01 07:24] LABS: ACETAMINOPHEN < 0.5 ug/ml (10-30); SALICYLATE < 2.8 mg/dL (2.8-20.0)
[2019-04-01 07:49] LABS: APPEARANCE,URINE CLOUDY (CLEAR); BILIRUBIN,URINE NEGATIVE (NEGATIVE); BLOOD, URINE 2+ (NEGATIVE); COLOR,URINE YELLOW (YELLOW); LEUKOCYTE ESTERASE ,URINE 3+ (NEGATIVE); NITRITE, URINE POSITIVE (NEGATIVE); UGLUCOSE NEGATIVE (NEGATIVE)
[2019-04-01] MEDS ORDERED: ASPIRIN 325 MG TAB PO ONE (07:55)
[2019-04-01 08:16] LABS: WBC,URINE TOO MANY TO COUNT /HPF (0-5)
[2019-04-01] MEDS ORDERED: NACL 0.9% 1,000 ML IV ONE (08:25)
[2019-04-01] MEDS ORDERED: MORPHINE SULFATE 2 MG/ML SYR IVP PRN (08:30)
[2019-04-01] MEDS: NACL 0.9% 1,000 ML IV SCH ×2 (08:30→22:20)
[2019-04-01] MEDS ORDERED: DOCUSATE SODIUM 100 MG GELCAP PO PRN (08:30)
[2019-04-01] MEDS ORDERED: HYDROcodone/APAP 5/325 MG 1 TAB TAB PO PRN (08:30)
[2019-04-01] MEDS ORDERED: MEDICATION REC. PHARMACY CONS. 1 EA MISC MC PRN (08:30)
[2019-04-01] MEDS ORDERED: MELATONIN 3 MG TAB PO PRN (08:30)
[2019-04-01] MEDS ORDERED: ONDANSETRON 4 MG/2 ML VIAL IM/IVP PRN (08:30)
[2019-04-01] MEDS ORDERED: ACETAMINOPHEN 325 MG TAB PO PRN (08:30)
[2019-04-01] MEDS ORDERED: cefTRIAXone 1,000 MG VIAL ONE (08:54)
--- NOTE | 2019-04-01 09:00 | NUR ---
Pt transferred to Tele room 127B via bed with LEO Macias .
[2019-04-01 09:16] VITALS: BP 113/64
--- NOTE | 2019-04-01 09:16 | NUR ---
RECEIVED BEDSIDE REPORT FROM OSMAN, ER NURSE. PATIENT ON TELE MONITOR WITH CONTACT PRECAUTIONS IN PLACE. PATIENT AAOX4, ON 2 L O2 NC, NO DISTRESS NOTED. SKIN INTACT. FALL RISK PROTOCOL IN PLACE. IV ON L AC 20G INFUSING NS AT 80, IV PATENT AND INTACT. PATIENT UNABLE TO AMBULATE. BED IN LOW POSITION, CALL LIGHT WITHIN REACH, SIDE RAILS X2 UP
--- NOTE | 2019-04-01 09:16 | NUR ---
Patient will be admitted to care of elevated Troponin 0.700. Admited to Telemetry. Will go to room 127B. Belongings list completed. Report to LEO De La Vega.
--- NOTE | 2019-04-01 09:19 | NUR ---
PATIENT HAS BEEN SCREENED AND CATEGORIZED MODERATE NUTRITION RISK. PATIENT WILL BE SEEN WITHIN 3-5 DAYS OF ADMISSION. 03/31/19[address]
[2019-04-01] MEDS ORDERED: LORazepam 2 MG/ML VIAL IM/IVP PRN (09:25)
[2019-04-01 09:51] LABS: PROTHROMBIN TIME 10.9 secs (10.8-13.4)
[2019-04-01] MEDS ORDERED: BISACODYL 10 MG SUPP RC PRN (09:55)
[2019-04-01] MEDS ORDERED: MAGNESIUM HYDROXIDE 2400 MG/30 ML UDC PO PRN (09:55)
--- NOTE | 2019-04-01 09:56 | NUR ---
ADMINISTERED SCHEDULED MED. PATIENT TOLERATED WELL
[2019-04-01] MEDS ORDERED: LORA10TA19 PO (10:00)
[2019-04-01 10:04] LABS: MAGNESIUM 1.8 mg/dL (1.8-2.4); PHOSPHORUS 3.5 mg/dL (2.5-4.9); THYROID STIMULATING HORMONE 5.23 uIU/mL (0.34-3.74)
--- NOTE | 2019-04-01 11:38 | NUR ---
PATIENT SLEEPING, ON 2 L O2 NC, NO DISTRESS NOTED
[2019-04-01 12:00] VITALS: BP 111/55
[2019-04-01] MEDS: DIVALPROEX 250 MG TABEC PO SCH ×2 (12:42→16:44)
--- NOTE | 2019-04-01 12:51 | NUR ---
PATIENT SITTING UP IN BED EATING LUNCH, ON 2L O2 NC, NO DISTRESS NOTED
--- NOTE | 2019-04-01 14:40 | NUR ---
PATIENT SLEEPING, ON 2 L O2 NC, NO DISTRESS NOTED
[2019-04-01] MEDS ORDERED: DEXTROSE 50% 50 ML SYR IVP PRN (15:25)
[2019-04-01 16:00] VITALS: BP 110/69
[2019-04-01] MEDS: BLOOD GLUCOSE MONITORING 1 DEV DEV FS SCH ×2 (16:27→21:12)
--- NOTE | 2019-04-01 16:45 | NUR ---
ADMINISTERED SCHEDULED MED. PATIENT TOLERATED WELL
--- NOTE | 2019-04-01 19:15 | NUR ---
GAVE BEDSIDE REPORT TO LEO DUBOSE. PATIENT ENDORSED IN STABLE CONDITION
--- NOTE | 2019-04-01 19:16 | NUR ---
RECEIVED REPORT. PT SITTING UP IN BED EATING DINNER. PT AWAKE AND ALERT. PT KNOWS SHE IS IN THE HOSPITAL AND HER NAME BUT DOESN'T KNOW THE YEAR. PT ON 2L O2 VIA NC, BREATHING UNLABORED. PT HAS LEFT AC 22G INTACT AND INFUSING WELL. IV IS WRAPPED WITH GAUZE TO DETER PT FROM TOUCHING. ON FALL PRECAUTION WITH YELLOW GOWN, BED ALARM AND BED IN LOW POSITION. PT WAS ASKED IF SHE KNEW HOW TO USE CALL LIGHT. PT STATED "YES" AND POINTED TO RED CALL LIGHT BUTTON. CALL LIGHT WITHIN REACH. WILL CONTINUE TO MONITOR.
[2019-04-01 20:00] VITALS: BP 100/59
[2019-04-01] MEDS ORDERED: TOPIRAMATE 100 MG TAB PO SCH (21:00)
[2019-04-01] MEDS: levETIRAcetam 500 MG TAB PO SCH (21:14)
[2019-04-01] MEDS: SIMVASTATIN 20 MG TAB PO SCH (21:14)
[2019-04-01] MEDS: TOPIRAMATE 100 MG TAB PO SCH (21:14)
--- NOTE | 2019-04-01 21:14 | NUR ---
MEDICATIONS GIVEN. PT TOLERATED WELL.
[2019-04-01] MEDS: INSULIN LISPRO SLIDING SCALE 100 UNITS/ML VIAL SUBQ PRN (22:17)
[2019-04-02] VITALS: BP 115/62
--- NOTE | 2019-04-02 00:02 | NUR ---
VITALS TAKEN. PT SLEEPING BUT EASILY AWAKEN. PT COOPERATIVE WITH VITALS. DENIES ANY PAIN.
--- NOTE | 2019-04-02 02:26 | NUR ---
ROUNDED ON PT. PT SLEEPING. NO VISIBLE SIGNS OF DISTRESS. BREATHING SYMMETRICAL AND UNLABORED.
--- NOTE | 2019-04-02 03:17 | NUR ---
LAB CALLED TO REPORT GRAM NEG RODS FROM BLOOD CULTURE, RESIDENT MD AWARE.
[2019-04-02 04:00] VITALS: BP 110/58
--- NOTE | 2019-04-02 04:00 | NUR ---
VITALS TAKEN. PT SLEEPING, NO VISIBLE SIGNS OF DISTRESS.
--- NOTE | 2019-04-02 06:00 | NUR ---
BLOOD GLUCOSE TAKEN 143 AT THIS TIME.
[2019-04-02] MEDS: BLOOD GLUCOSE MONITORING 1 DEV DEV FS SCH ×4 (06:24→21:01)
[2019-04-02 06:45] LABS: ANION GAP 15.9 (8-16); CARBON DIOXIDE 22.5 mmol/L (21-32); CREATININE 1.4 mg/dL (0.6-1.3); POTASSIUM 4.4 mmol/L (3.5-5.1)
[2019-04-02 06:48] LABS: BASOPHILS % (AUTO) 0.2 % (0.0-2.0); HEMATOCRIT 29.1 % (36-48); HEMOGLOBIN 9.6 g/dL (12.0-16.0); LYMPHOCYTES % (AUTO) 8.6 % (20.5-51.1); MEAN CORPUSCULAR HEMOGLOBIN 32 pg (27-31); MEAN CORPUSCULAR HGB CONC 33 g/dL (33-37); MEAN CORPUSCULAR VOLUME 96.7 fL (80-94); MONOCYTES # (AUTO) 1.2 K/uL (0.8-1.0); NEUTROPHILS # (AUTO) 9.4 K/uL (1.8-7.7); NEUTROPHILS % (AUTO) 81.2 % (42.2-75.2); PLATELET COUNT (AUTO) 129 K/uL (140-450); WHITE BLOOD COUNT (AUTO) 11.6 K/uL (4.8-10.8)
--- NOTE | 2019-04-02 07:15 | NUR ---
ENDORSED PT TO AM NURSE. PT IN STABLE CONDITION.
--- NOTE | 2019-04-02 07:42 | NUR ---
RECEIVED HAND OFF REPORT FROM CHURN DRILLER NURSE PT IS AWAKE AND APPEARS STABLE AND IN NO APPARENT DISTRESS. ALL SAFETY MEASURES ARE IN PLACE WILL CONTINUE TO MONTIOR.
[2019-04-02 08:00] VITALS: BP 113/65
[2019-04-02] MEDS: TAMSULOSIN 0.4 MG CAP PO SCH (08:57)
[2019-04-02] MEDS: LORATADINE 10 MG TAB PO SCH (08:58)
[2019-04-02] MEDS: ASPIRIN 81 MG TAB.CHEW PO SCH (08:58)
[2019-04-02] MEDS: LOSARTAN 50 MG TAB PO SCH (08:58)
[2019-04-02] MEDS: DIVALPROEX 250 MG TABEC PO SCH ×3 (08:58→16:46)
[2019-04-02] MEDS: LACTOBACILLUS RHAMNOSUS GG 1 EACH CAP PO SCH (08:58)
[2019-04-02] MEDS: PANTOPRAZOLE 40 MG INJ VIAL IVP SCH (08:59)
[2019-04-02] MEDS: TOPIRAMATE 100 MG TAB PO SCH ×2 (08:59→20:41)
--- NOTE | 2019-04-02 09:05 | NUR ---
FREQUENT ROUNDING PT IS AWAKE IN BED PT IS STABLE AND PT IS IN NO APPARENT DISTRESS. ALL SAFETY MEASURES ARE IN PLACE AND WILL CONTINUE TO MONITOR.
[2019-04-02] MEDS: levETIRAcetam 500 MG TAB PO SCH ×2 (09:47→20:41)
[2019-04-02] MEDS: NACL 0.9% 1,000 ML IV SCH ×2 (09:47→20:39)
--- NOTE | 2019-04-02 10:00 | NUR ---
SPOKE WITH PTS SISTER ON THE PHONE, PTS SISTER STATED THAT SHE A HISTORY OF KIDNEY STONES AND PREVIOUSLY ENDED UP IN ACUTE KIDNEY FAILURE BECAUSE OF THE KIDNEY STONES AND THE SISTER STATED THAT SHE WOULD LIKE FOR HER TO RECEIVED A KUB. I INFORMED HER THAT I CANT ORDER THAT BUT I WILL INFORM THE DR. I SPOKE WITH DR. REED ABOUT THE PHONE CALL AND HE STATED THAT HE WILL CALL THE SISTER AND SPEAK WITH HER ABOUT IT.
--- NOTE | 2019-04-02 11:05 | NUR ---
FREQUENT ROUNDING ON PT PT IS STABLE AND IN NO APPARENT DISTRESS. REPOSITIONED AND CLEANED PT ALL SAFETY MEASURES ARE IN PLACE AND WILL CONTINUE TO MONITOR.
--- NOTE | 2019-04-02 11:30 | NUR ---
FINGERSTICK GLUCOSE 147 NO COVERAGE NEEDED. ALL SAFETY MEASURES ARE IN PLACE. WILL CONTINUE TO MONITOR,
[2019-04-02 12:00] VITALS: BP 112/56
[2019-04-02] MEDS ORDERED: PIPER/TAZO 2.25GM/D5W PREMIX 50 ML IV SCH (12:00)
--- NOTE | 2019-04-02 13:08 | NUR ---
FREQUENT ROUNDING ON PT PT IS STABLE AND IN NO APPARENT DISTRESS. ALL SAFETY MEASURES ARE IN PLACE WILL CONTINUE TO MONITOR.
--- NOTE | 2019-04-02 15:26 | NUR ---
FREQUENT ROUNDING ON PT PT IS STABLE AND APPEARS IN NO DISTRESS. ALL SAFETY MEASURES ARE IN PLACE WILL CONTINUE TO MONITOR.
[2019-04-02 16:00] VITALS: BP 98/60
--- NOTE | 2019-04-02 17:05 | NUR ---
FREQUENT ROUNDING ON PT IS ASLEEP IN NO APPARENT DISTRESS. ALL SAFETY MEASURES ARE IN PLACE WILL CONTINUE TO MONITOR
--- NOTE | 2019-04-02 19:36 | NUR ---
ENDORSED PT TO CARPENTER FOREMAN NURSE PT IS ASLEEP IN BED PT IS STABLE AND IN NO APPARENT DISTRESS. ALL SAFETY MEASURES ARE IN PLACE.
--- NOTE | 2019-04-02 19:37 | NUR ---
RECEIVED BEDSIDE REPORT FROM DAY SHIFT NURSE ADRIENNE RN, PT STABLE, NO DISTRESS NOTED, IV TO L AC 20G PATENT, INTACT, INFUSING NS@ 80ML/HR, INFUSING WELL, PT ON 2LPM O2 VIA NC, NO SOB NOTED, INITIAL ASSESSMENT DONE, ALL SAFETY PRECAUTION MET, CALL LIGHT WITHIN REACH, WILL CONTINUE TO MONITOR.
[2019-04-02 20:00] VITALS: BP 140/58
[2019-04-02] MEDS: SIMVASTATIN 20 MG TAB PO SCH (20:41)
--- NOTE | 2019-04-02 21:01 | NUR ---
DUE MEDICATION ADMINISTERED, PT TOLERATED WELL, NO DISTRESS NOTED, CALL LIGHT WITHIN REACH, WILL CONTINUE TO MONITOR.
[2019-04-03] VITALS: BP 109/54
--- NOTE | 2019-04-03 00:10 | NUR ---
CHECKED ON PT, PT SLEEPING, V/S TAKEN, WNL, CALL LIGHT WITHIN REACH, WILL CONTINUE TO MONITOR.
--- NOTE | 2019-04-03 03:52 | NUR ---
CHECKED ON PT, PT SLEEPING V/S TAKEN, WNL, CALL LIGHT WITHIN REACH, WILL CONTINUE TO MONITOR.
[2019-04-03 04:00] VITALS: BP 103/59
[2019-04-03] MEDS: BLOOD GLUCOSE MONITORING 1 DEV DEV FS SCH ×4 (05:59→20:01)
[2019-04-03 07:26] LABS: CARBON DIOXIDE 21.2 mmol/L (21-32); CREATININE 1.4 mg/dL (0.6-1.3); POTASSIUM 4.2 mmol/L (3.5-5.1)
--- NOTE | 2019-04-03 07:28 | NUR ---
ENDORSED PT TO DAY SHIFT NURSE ADRIENNE RN, PT STABLE, NO DISTRESS NOTED. CALL LIGHT WITHIN REACH.
--- NOTE | 2019-04-03 07:34 | NUR ---
RECEIVED HAND OFF REPORT FROM RAYON TESTER NURSE PT IS ASLEEP IN BED PT APPEARS STABLE AND IN NO APPARENT DISTRESS. NOTABLE CHEST RISE AND FALL. IV SITE IS PATENT AND SHOWS NO SIGNS ON INFLAMMATION OR INFILTRATION. SPO2 MONITOR IS ON PT. 2L 02 VIA NASAL CANULA. ALL SAFETY MEASURES ARE IN PLACE WILL CONTINUE TO MONITOR.
[2019-04-03 07:39] LABS: BASOPHILS % (AUTO) 0.3 % (0.0-2.0); HEMATOCRIT 27.7 % (36-48); HEMOGLOBIN 9.2 g/dL (12.0-16.0); LYMPHOCYTES # (AUTO) 0.8 K/uL (2.5-16.5); LYMPHOCYTES % (AUTO) 8.7 % (20.5-51.1); MEAN CORPUSCULAR HEMOGLOBIN 32 pg (27-31); MEAN CORPUSCULAR HGB CONC 33 g/dL (33-37); MEAN CORPUSCULAR VOLUME 96.7 fL (80-94); MONOCYTES % (AUTO) 10.9 % (1.7-9.3); NEUTROPHILS % (AUTO) 80.1 % (42.2-75.2); PLATELET COUNT (AUTO) 124 K/uL (140-450); RED BLOOD CELL COUNT(AUTO) 2.86 MIL/uL (4.20-5.40); RED CELL DISTRIBUTION WIDTH 14.9 % (11.6-13.7); WHITE BLOOD COUNT (AUTO) 8.8 K/uL (4.8-10.8)
[2019-04-03 08:00] VITALS: BP 98/50
--- NOTE | 2019-04-03 09:45 | NUR ---
HELD HEPARIN PLT BELOW 150.
[2019-04-03] MEDS: levETIRAcetam 500 MG TAB PO SCH ×2 (09:46→20:01)
[2019-04-03] MEDS: PANTOPRAZOLE 40 MG INJ VIAL IVP SCH (09:46)
[2019-04-03] MEDS: CALCIUM CARB/VIT-D 500 MG/200 IU 1 TAB PO SCH (09:47)
[2019-04-03] MEDS: TAMSULOSIN 0.4 MG CAP PO SCH (09:47)
[2019-04-03] MEDS: LOSARTAN 50 MG TAB PO SCH (09:47)
[2019-04-03] MEDS: TOPIRAMATE 100 MG TAB PO SCH ×2 (09:47→20:01)
[2019-04-03] MEDS: DIVALPROEX 250 MG TABEC PO SCH ×3 (09:48→17:18)
[2019-04-03] MEDS: ASPIRIN 81 MG TAB.CHEW PO SCH (09:48)
[2019-04-03] MEDS: LORATADINE 10 MG TAB PO SCH (09:48)
[2019-04-03] MEDS: LACTOBACILLUS RHAMNOSUS GG 1 EACH CAP PO SCH (09:48)
--- NOTE | 2019-04-03 10:05 | NUR ---
PT DIFFICULT TO AROUSE. AND FALLS ASLEEP EASILY ONCE AROUSED, PT ON 2L 02 VIA NASAL CANULA AND IS STATING AT 98% PERFORMED FINGERSTICK GLUCOSE CHECK 93. PT APPEARS STABLE AND IN NO APPARENT DISTRESS. WILL CONTINUE TO MONITOR. DR. REED IS AWARE OF THE PTS DIFFICULTY BEING AROUSED.
[2019-04-03] MEDS: NACL 0.9% 1,000 ML IV SCH (11:40)
[2019-04-03 12:05] VITALS: BP 98/60
--- NOTE | 2019-04-03 12:25 | NUR ---
FREQUENT ROUNDING ON PT PT APPEARS STABLE AND IN NO APPARENT DISTRESS. ALL SAFETY MEASURES ARE IN PLACE WILL CONTINUE TO MONITOR
--- NOTE | 2019-04-03 14:36 | NUR ---
FREQUENT ROUNDING ON PT PT APPEARS STABLE AND IN NO APPARENT DISTRESS. ALL SAFETY MEASURES ARE IN PLACE.
[2019-04-03 16:00] VITALS: BP 95/50
--- NOTE | 2019-04-03 16:30 | NUR ---
FREQUENT ROUNDING ON PT PT APPEARS STABLE AND IN NO APPARENT DISTRESS. ALL SAFETY MEASURES ARE IN PLACE WILL CONTINUE TO MONITOR.
--- NOTE | 2019-04-03 19:26 | NUR ---
ENDORSED PT TO PM RN PT APPEARS STABLE AND IN NO APPARENT DISTRESS. ALL SAFETY MEASURES ARE IN PLACE.
--- NOTE | 2019-04-03 19:27 | NUR ---
RECEIVED BEDSIDE REPORT FROM DAY SHIFT RN. PT IS AAOX2 PATIENT IS EATING DINNER TRAY. ON 2L O2 VIA NC. SEIZURE AND FALL PROTOCOL IS IN PLACE. IV ON LAC 20G IVF INFUSING PER ORDERS. SKIN IS INTACT. PT IS INCONTINENT. SAFETY MEASURES IN PLACE. PLAN OF CARE WAS DISCUSSED WITH PATIENT. CALL LIGHT IS WITHIN REACH. BED ALARM ON AND LOWEST POSITION. WILL ROUND FREQUENTLY.
[2019-04-03] MEDS: SIMVASTATIN 20 MG TAB PO SCH (20:01)
--- NOTE | 2019-04-03 20:01 | NUR ---
SCHEDULED MEDICATIONS WERE GIVEN. HELD HUMALOG PT HAD JUST FINISHED EATING HER DINNER TRAY BLOOD SUGAR WAS 152. WILL RECHECK IN THE AM. PT TOLERATED WELL. CALL LIGHT IS WITHIN REACH. WILL ROUND FREQUENTLY.
--- NOTE | 2019-04-03 22:00 | NUR ---
PATIENT IS SLEEPING COMFORTABLY IN BED. CALL LIGHT IS WITHIN REACH.
[2019-04-03 23:29] VITALS: BP 99/54
--- NOTE | 2019-04-03 23:31 | NUR ---
VITAL SIGNS ARE WITHIN NORMAL LIMITS. NO S/S OF DISTRESS. WILL CONTINUE TO MONITOR.
[2019-04-03] MEDS ORDERED: MEROPENEM 1,000 MG in NACL 0.9% 100 ML IV ONE (23:45)
[2019-04-04] MEDS ORDERED: MEROPENEM 500 MG VIAL IV ONE (00:15)
--- NOTE | 2019-04-04 02:00 | NUR ---
PATIENT IS SLEEPING COMFORTABLY IN BED. NO S/S OF DISTRESS. CALL LIGHT IS WITHIN REACH.
--- NOTE | 2019-04-04 04:34 | NUR ---
PATIENT IS SLEEPING COMFORTABLY IN BED. NO S/S OF DISTRESS. CALL LIGHT IS WITHIN REACH.
[2019-04-04] MEDS ORDERED: MEROPENEM 1,000 MG in NACL 0.9% 100 ML IV SCH ×3 (05:00)
[2019-04-04] MEDS: BLOOD GLUCOSE MONITORING 1 DEV DEV FS SCH ×4 (05:20→20:05)
[2019-04-04] MEDS: NACL 0.9% 1,000 ML IV SCH ×2 (05:20→20:05)
--- NOTE | 2019-04-04 07:30 | NUR ---
GAVE BEDSIDE REPORT TO DAY SHIFT RN. PT ENDORSED IN STABLE CONDITION.
--- NOTE | 2019-04-04 07:31 | NUR ---
RECEIVED BEDSIDE REPORT FROM CHIEF QUALITY OFFICER NURSE. PT AOX2, THAI SPEAKING. NO C/O PAIN OR DISCOMFORT. PT IS SITTING UP IN BED, AWAKE. RESPIRATIONS EVEN AND UNLABORED ON 2L NC. IV SITE PATENT AND ASYMPTOMATIC, INFUSING IVF PER MD ORDERS. UPDATED BOARD AND EXPLAINED POC. ALL SAFETY PRECAUTIONS IN PLACE, WILL CONTINUE TO MONITOR.
[2019-04-04 08:00] VITALS: BP 99/63
[2019-04-04 08:33] LABS: BASOPHILS % (AUTO) 0.2 % (0.0-2.0); EOSINOPHILS % (AUTO) 0.1 % (0.0-4.0); HEMATOCRIT 30.4 % (36-48); LYMPHOCYTES # (AUTO) 0.8 K/uL (2.5-16.5); LYMPHOCYTES % (AUTO) 13.9 % (20.5-51.1); MEAN CORPUSCULAR HEMOGLOBIN 32 pg (27-31); MEAN CORPUSCULAR HGB CONC 33 g/dL (33-37); MEAN CORPUSCULAR VOLUME 97.1 fL (80-94); MONOCYTES # (AUTO) 0.6 K/uL (0.8-1.0); MONOCYTES % (AUTO) 9.8 % (1.7-9.3); NEUTROPHILS # (AUTO) 4.5 K/uL (1.8-7.7); PLATELET COUNT (AUTO) 147 K/uL (140-450); RED BLOOD CELL COUNT(AUTO) 3.13 MIL/uL (4.20-5.40); RED CELL DISTRIBUTION WIDTH 14.9 % (11.6-13.7); WHITE BLOOD COUNT (AUTO) 5.9 K/uL (4.8-10.8)
[2019-04-04 08:45] LABS: ANION GAP 14.6 (8-16); CARBON DIOXIDE 21.5 mmol/L (21-32); CREATININE 1.4 mg/dL (0.6-1.3); POTASSIUM 4.1 mmol/L (3.5-5.1)
[2019-04-04] MEDS: LOSARTAN 50 MG TAB PO SCH (09:00)
[2019-04-04] MEDS ORDERED: MEROPENEM 500 MG in NACL 0.9% 50 ML IV SCH (09:00)
[2019-04-04] MEDS: PANTOPRAZOLE 40 MG INJ VIAL IVP SCH (10:18)
[2019-04-04] MEDS: levETIRAcetam 500 MG TAB PO SCH ×2 (10:18→20:13)
[2019-04-04] MEDS: TOPIRAMATE 100 MG TAB PO SCH ×2 (10:18→20:12)
[2019-04-04] MEDS: ASPIRIN 81 MG TAB.CHEW PO SCH (10:18)
[2019-04-04] MEDS: LACTOBACILLUS RHAMNOSUS GG 1 EACH CAP PO SCH (10:19)
[2019-04-04] MEDS: CALCIUM CARB/VIT-D 500 MG/200 IU 1 TAB PO SCH (10:19)
[2019-04-04] MEDS: TAMSULOSIN 0.4 MG CAP PO SCH (10:19)
[2019-04-04] MEDS: DIVALPROEX 250 MG TABEC PO SCH ×3 (10:19→16:04)
[2019-04-04] MEDS: LORATADINE 10 MG TAB PO SCH (10:19)
--- NOTE | 2019-04-04 10:52 | NUR ---
UPDATED SISTER ON POC. CALLED SISTER FROM PT'S PHONE AND ALLOWED PT TO SPEAK WITH SISTER. PT STATES SHE FEELS "WELL".
--- NOTE | 2019-04-04 12:41 | NUR ---
PATIENT SITTING UP IN BED, EATING LUNCH. SCHEDULED MED ADMINISTERED.
[2019-04-04] MEDS: MEROPENEM 500 MG in NACL 0.9% 50 ML IV SCH ×2 (13:50→20:14)
[2019-04-04 16:00] VITALS: BP 96/53
--- NOTE | 2019-04-04 16:06 | NUR ---
SCHEDULED MEDS ADMINISTERED. NO C/O PAIN OR DISCOMFORT. ALL SAFETY PRECAUTIONS IN PLACE, WILL CONTINUE TO MONITOR.
--- NOTE | 2019-04-04 19:22 | NUR ---
ENDORSED POC TO MANAGER COSMETICS RN. PT IN STABLE CONDITION.
[2019-04-04] MEDS: SIMVASTATIN 20 MG TAB PO SCH (20:12)
--- NOTE | 2019-04-04 20:14 | NUR ---
ADMINISTERED SCHEDULED MEDICATIONS. BLOOD GLUCOSE 100 NO COVERAGE NEEDED. PATIENT TOLERATED WELL. ALL NEEDS MET AT THIS TIME. CALL LIGHT IS WITHIN REACH.
--- NOTE | 2019-04-04 21:00 | NUR ---
PATIENT CLEANED AND REPOSITION FOR COMFORT. ALL NEEDS MET AT THIS TIME. CALL LIGHT IS WITHIN REACH
[2019-04-04 23:38] VITALS: BP 98/54
--- NOTE | 2019-04-04 23:40 | NUR ---
VITAL SIGNS ARE WITHIN NORMAL LIMITS. ALL NEEDS MET AT THIS TIME. WILL CONTINUE TO MONITOR.
--- NOTE | 2019-04-05 02:43 | NUR ---
PATIENT IS SLEEPING COMFORTABLY IN BED. RESPIRATIONS ARE EQUAL AND UNLABORED. ALL SAFETY MEASURES ARE IN PLACE. CALL LIGHT IS WITHIN REACH.
--- NOTE | 2019-04-05 04:30 | NUR ---
PATIENT IS SLEEPING COMFORTABLY IN BED. NO S/S OF DISTRESS. WILL CONTINUE TO MONITOR.
[2019-04-05] MEDS: MEROPENEM 500 MG in NACL 0.9% 50 ML IV SCH ×2 (04:34→13:06)
[2019-04-05] MEDS: BLOOD GLUCOSE MONITORING 1 DEV DEV FS SCH ×3 (06:07→16:49)
--- NOTE | 2019-04-05 07:08 | NUR ---
GAVE BEDSIDE REPORT TO DAY SHIFT RN. PATIENT ENDORSED IN STABLE CONDITION.
[2019-04-05 08:00] VITALS: BP 124/49
--- NOTE | 2019-04-05 08:05 | NUR ---
CALLED EMERGENCY CONTACT TETO [phone] TO OBTAIN PICC CONSENT. PER TETO, PT'S SISTER WILL BE ABLE TO PROVIDE CONSENT. TETO STATES SHE WILL CALL THE [facility] CAD PROGRAMMER RIGHT NOW AND HAVE THE CAD PROGRAMMER CALL ME IN ESTIMATED 15 MINUTES.
--- NOTE | 2019-04-05 08:42 | NUR ---
04/05/19 RD INITIAL ASSESSMENT COMPLETED PLEASE REFER TO NUTRITION ASSESSMENT UNDER CARE ACTIVITY FOR ESTIMATED NUTRITIONAL NEEDS. RD RECOMMENDATIONS: 1. CONTINUE ON CCHO 60 GM, CARDIAC DIET TOLERATED. 2. RDN TO ADD DIET HEALTH SHAKES 1 CARTON TID WITH MEALS TO HELP MEET NEEDS. THIS WILL PROVIDE ADDITIONAL 600 KCAL AND 21 GM PROTEIN. 3. CONSULT RDN PRN. 4. RD WILL F/U 3-5 DAYS; MODERATE RISK. RAJNI CHINO MS, RDN
[2019-04-05] MEDS ORDERED: D50SYR IVP (08:47)
[2019-04-05] MEDS ORDERED: GLUC-805 FS (08:47)
[2019-04-05] MEDS ORDERED: LOSA25TA1 PO (08:47)
[2019-04-05] MEDS ORDERED: TOP100 PO (08:47)
[2019-04-05] MEDS ORDERED: DIVA250E1 PO (08:47)
[2019-04-05] MEDS ORDERED: LACT10CA PO (08:47)
[2019-04-05] MEDS ORDERED: HUMSLIDE SUBQ (08:47)
[2019-04-05] MEDS ORDERED: ASPI81CT95 PO (08:47)
[2019-04-05] MEDS ORDERED: MER500I IV (08:48)
[2019-04-05] MEDS ORDERED: LOSARTAN 25 MG TAB PO SCH (09:00)
[2019-04-05] MEDS: levETIRAcetam 500 MG TAB PO SCH (09:38)
[2019-04-05] MEDS: PANTOPRAZOLE 40 MG INJ VIAL IVP SCH (09:38)
[2019-04-05] MEDS: LORATADINE 10 MG TAB PO SCH (09:39)
[2019-04-05] MEDS: TOPIRAMATE 100 MG TAB PO SCH (09:39)
[2019-04-05] MEDS: TAMSULOSIN 0.4 MG CAP PO SCH (09:39)
[2019-04-05] MEDS: DIVALPROEX 250 MG TABEC PO SCH ×3 (09:39→17:53)
[2019-04-05] MEDS: CALCIUM CARB/VIT-D 500 MG/200 IU 1 TAB PO SCH (09:40)
[2019-04-05] MEDS: LACTOBACILLUS RHAMNOSUS GG 1 EACH CAP PO SCH (09:40)
[2019-04-05] MEDS: ASPIRIN 81 MG TAB.CHEW PO SCH (09:40)
--- NOTE | 2019-04-05 10:05 | NUR ---
SCHEDULED MEDICATIONS ADMINISTERED. NO C/O PAIN OR DISCOMFORT. MAKE UP MAN IN ROOM WILL CHANGE BEDSHEETS.
--- NOTE | 2019-04-05 10:24 | NUR ---
OBTAINED TELEPHONE CONSENT FOR PICC INSERTION FROM SISTER JOHANA. ASSOCIATE PROFESSOR OF COMMUNICATION WILL NOTIFY PICC LINE RN.
--- NOTE | 2019-04-05 11:13 | NUR ---
CALLED LEO IRENE AT [facility]. THEY ARE AN INTERMEDIATE NURSING FACILITY, UNABLE TO GIVE IV ABX.
--- NOTE | 2019-04-05 11:20 | NUR ---
SPOKE TO MOSES FROM [facility] AND PL[facility] FOR SNF PLACEMENT FOR IV ABX AND ISOLATION. SHE SAID SOMEONE WILL CALL BACK HERE.
--- NOTE | 2019-04-05 11:22 | NUR ---
PICC LINE RN JOSE ALFREDO HERE AT BEDSIDE.
[2019-04-05] MEDS: INSULIN LISPRO SLIDING SCALE 100 UNITS/ML VIAL SUBQ PRN (11:28)
--- NOTE | 2019-04-05 12:21 | NUR ---
CALLED PHARMACY TO BRING SCHEDULED MEDICATIONS- TELE PYXIS NOT WORKING.
--- NOTE | 2019-04-05 12:25 | NUR ---
RADIOLOGY AWARE OF STAT CXR ORDER.
--- NOTE | 2019-04-05 12:50 | NUR ---
PER PICC LINE RN, PICC LINE INSERTED TO RIGHT UA, DOUBLE LUMEN. CONFIRMED BY CXR.
[2019-04-05] MEDS: NACL 0.9% 1,000 ML IV SCH (13:40)
[2019-04-05 16:00] VITALS: BP 133/50
--- NOTE | 2019-04-05 16:29 | NUR ---
LEFT VOICEMAIL FOR SISTER JOHANA [phone] REGARDING PLANS TO TRANSFER TO [facility] TODAY Addendum: 04/05/19 at 1630 by Qian Art Meng, RN LEFT CALLBACK # Addendum: 04/05/19 at 1845 by Qian Art Meng, RN [place], NOT [place].
[2019-04-05 16:30] VITALS: BP 133/50
--- NOTE | 2019-04-05 17:02 | NUR ---
REPORT GIVEN TO BENJAMIN BAILEY AT [facility]. Addendum: 04/05/19 at 1845 by Qian Art Meng, RN [place], NOT [place].
--- NOTE | 2019-04-05 17:12 | NUR ---
INFORMED CRISTAL, JUVENILE OFFICER OF [facility], OF PLANS TO TRANSFER TO [facility] TODAY 1829 PICKUP Addendum: 04/05/19 at 1842 by Qian Art Meng, RN [place], NOT [place].
--- NOTE | 2019-04-05 18:15 | NUR ---
SISTER JOHANA CALLED- EXPLAINED POC AT [facility] AND ANSWERED ALL QUESTIONS. JOHANA VERBALIZED UNDERSTANDING. Addendum: 04/05/19 at 1842 by Qian Art Meng, RN [place], NOT [place].
--- NOTE | 2019-04-05 18:29 | NUR ---
REVIEWED DISCHARGE PAPERWORK AND PLAN OF CARE AT [facility]. NEW MED AND MED RECONCILIATION TEACHING GIVEN. PT IS AOX2, WILL BE REINFORCEMENT OF TEACHING. Addendum: 04/05/19 at 1842 by Qian Art Meng, RN [place], NOT [facility].
--- NOTE | 2019-04-05 19:27 | NUR ---
ENDORSED POC TO PERSONNEL DIRECTOR RN. PT IN STABLE CONDITION.
--- NOTE | 2019-04-05 19:30 | NUR ---
RECEIVED PT FROM DAVID RN PT VERBALIZED NEEDED AAOX3 PICC LINE PATENT ON RT UPPER ARM, PT IS READY TO GO TO [facility] STILL WAITING FOR TRANSPORTATION TO PICK PT UP , DR ARGUETA IS HERE AND WAS NOTIFY PT DISCHARGED INITIAL ASSESSMENT DONE
--- NOTE | 2019-04-05 20:00 | NUR ---
PT LEAVING AT [facility] TRANSPORTATION IS HERE , PT REPORT WAS GIVING PT VERBALIZED TO BE HAPPY TO GO TO [facility] ALL DISCHARGED PAPER GIVEN
== END 2019-04-05 20:00 | DRG 871 ==
LOC: MED 06:27 → MMU 08:30
PROVIDERS: ADMIT General Practice; ATTEND General Practice
PROC: 02HV33Z Insertion of Infusion Device into Superior Vena Cava, Percutaneous Approach (ICD-10-PCS; principal; 2019-04-05)
PROC: B548ZZA Ultrasonography of Superior Vena Cava, Guidance (ICD-10-PCS; 2019-04-05)
DX: A41.51 Sepsis due to Escherichia coli [E. coli] (principal); G93.41 Metabolic encephalopathy; N17.0 Acute kidney failure with tubular necrosis; I21.A1 Myocardial infarction type 2; N39.0 Urinary tract infection, site not specified; G40.909 Epilepsy, unspecified, not intractable, without status epilepticus; K21.9 Gastro-esophageal reflux disease without esophagitis; E78.5 Hyperlipidemia, unspecified; F79 Unspecified intellectual disabilities; Z68.33 Body mass index [BMI] 33.0-33.9, adult; E11.40 Type 2 diabetes mellitus with diabetic neuropathy, unspecified; E02 Subclinical iodine-deficiency hypothyroidism; I10 Essential (primary) hypertension; N31.9 Neuromuscular dysfunction of bladder, unspecified; E66.9 Obesity, unspecified; E83.51 Hypocalcemia; Z87.440 Personal history of urinary (tract) infections; Z86.14 Personal history of Methicillin resistant Staphylococcus aureus infection; Z87.81 Personal history of (healed) traumatic fracture; Z88.8 Allergy status to other drugs, medicaments and biological substances; Z79.899 Other long term (current) drug therapy; D63.8 Anemia in other chronic diseases classified elsewhere
CPT/HCPCS: 36415; 70450; 71045; 80048; 80053; 81001; 82550; 82553; 82948; 83605; 83690; 83735; 83880; 84100; 84439; 84443; 84484; 85025; 85610; 85730; 87040; 87081; 87086; 87186; 93005; 96361; 96365; 97110; 97116; 97161-GP; 97530; 99285; C9113; G0480; J0696; J1644; J2185; J2543; J7030; J7060; Q0092

== ENCOUNTER 2019-06-13 14:47 | Emergency (ER) | payer OTHER, MEDICAID ==
[~2019-06-13] VITALS: Ht 162.6 cm; Wt 104.3 kg
[2019-06-13 14:47] VITALS: BP 135/60
[~2019-06-13 14:47] MED LIST changes: +ASPI81CT95 PO; -CHLO118S2 TP; +D50SYR IVP; +DIVA250E1 PO; -DIVA250T PO; -GLIP10TA3 PO; +GLUC-805 FS; +HUMSLIDE SUBQ; +LACT10CA PO; +LORA10TA19 PO; -LOSA100T51 PO; +LOSA25TA1 PO; +MER500I IV; -MUPI2CRE22 NS
[2019-06-13] MEDS: NACL 0.9% 1,000 ML IV ONE (15:23)
[2019-06-13] MEDS: ONDANSETRON 4 MG/2 ML VIAL IVP ONE (15:24)
[2019-06-13] MEDS: MORPHINE SULFATE 2 MG/ML SYR IVP ONE (15:26)
[2019-06-13 16:00] LABS: BASOPHILS % (AUTO) 0.4 % (0.0-2.0); HEMATOCRIT 33.9 % (36-48); HEMOGLOBIN 10.9 g/dL (12.0-16.0); LYMPHOCYTES # (AUTO) 1.4 K/uL (2.5-16.5); LYMPHOCYTES % (AUTO) 19.4 % (20.5-51.1); MEAN CORPUSCULAR HEMOGLOBIN 28 pg (27-31); MEAN CORPUSCULAR HGB CONC 32 g/dL (33-37); MEAN CORPUSCULAR VOLUME 88.1 fL (80-94); MONOCYTES # (AUTO) 0.5 K/uL (0.8-1.0); MONOCYTES % (AUTO) 6.2 % (1.7-9.3); NEUTROPHILS # (AUTO) 5.4 K/uL (1.8-7.7); PLATELET COUNT (AUTO) 195 K/uL (140-450); RED BLOOD CELL COUNT(AUTO) 3.85 MIL/uL (4.20-5.40); RED CELL DISTRIBUTION WIDTH 15.5 % (11.6-13.7); WHITE BLOOD COUNT (AUTO) 7.3 K/uL (4.8-10.8)
[2019-06-13 16:38] LABS: ALBUMIN 2.5 g/dL (3.4-5.0); ANION GAP 15.2 (8-16); CARBON DIOXIDE 24.2 mmol/L (21-32); POTASSIUM 4.4 mmol/L (3.5-5.1); TOTAL BILIRUBIN 0.2 mg/dL (0.0-1.0)
[2019-06-13 17:08] VITALS: BP 129/67
== END 2019-06-13 17:04 | disposition home or self-care (01) ==
LOC: MED 14:47
DX: R56.9 Unspecified convulsions (principal); E87.0 Hyperosmolality and hypernatremia; E86.0 Dehydration; M54.6 Pain in thoracic spine; M25.552 Pain in left hip; Z79.82 Long term (current) use of aspirin; Z79.899 Other long term (current) drug therapy
CPT/HCPCS: 36415; 70450; 71045; 72125; 73502; 80053; 85025; 93005; 96361; 96374; 96375; 99284; J2270; J2405; J7030; Q0092

== ENCOUNTER 2020-01-23 13:46 | Inpatient (IN) | payer OTHER, MEDICAID ==
[~2020-01-23] VITALS: Ht 165.1 cm; Wt 79.4 kg
[~2020-01-23 13:46] MED LIST changes: +BISA-188 PO; -BISA5ECT43 PO; -MER500I IV; +MERO500V13 IV
--- NOTE | 2020-01-23 13:46 | NUR ---
PT PLACED IN BED 7 BY EMS.
--- NOTE | 2020-01-23 13:46 | NUR ---
PT PLACED ON PULSE OX AND LEAD ECG.
[2020-01-23 13:49] VITALS: BP 116/65
[2020-01-23] MEDS ORDERED: ATI.5 GT (13:54)
[2020-01-23] MEDS ORDERED: CALC-1214 GT (13:54)
[2020-01-23] MEDS ORDERED: LEVE1000 PO (13:54)
[2020-01-23] MEDS ORDERED: DIVA250T GT (13:54)
[2020-01-23] MEDS ORDERED: CRAN400T5 GT (13:54)
[2020-01-23] MEDS ORDERED: LORA10TA19 PO (13:54)
[2020-01-23] MEDS ORDERED: SIMV20TA1 GT (13:54)
[2020-01-23] MEDS ORDERED: LACT10SO1 PO (13:54)
[2020-01-23] MEDS ORDERED: FLONAS NS (13:54)
[2020-01-23] MEDS ORDERED: XALOS OP (13:54)
[2020-01-23] MEDS ORDERED: DOCU-299 GT (13:54)
[2020-01-23] MEDS ORDERED: FAMO-90 GT (13:54)
[2020-01-23] MEDS ORDERED: TAMS0.4C96 GT (13:54)
--- NOTE | 2020-01-23 13:54 | NUR ---
DR. CONTRERAS AT BEDSIDE.
--- NOTE | 2020-01-23 14:00 | NUR ---
ATTEMPTED TO FLUSH G-TUB WITH WARM WATER, UNABLE TO FLUSH AND NO RETURN.
--- NOTE | 2020-01-23 14:12 | NUR ---
PT TAKEN TO CT
--- NOTE | 2020-01-23 14:22 | NUR ---
PT WAS BROUGHT IN FROM [place] DUE TO G-TUBE BLOCKAGE. 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 G-TUBE WAS DISLODGED AND NEW G-TUBE PLACED, PT WAS ALSO FOUND TO HAVE ABD WALL CELLULITIS. G-TUBE SURGICALLY REPLACED. NORMAL BOWEL SOUNDS TO ALL QUADRANTS, RIGHT LOWER ABD MILD FIRMESS TO TOUCH, ARAE APPEARS TENDER UPON PALPATION. PT HAS MID-LINE BRAD PLACED FROM PRIOR G-TUBE REPLACEMENT, BRAD DRY, CLEAN, AND INTACT. DRESSING TO NEW G-TUBE SITE WITH SOME PURLENT DRAINAGE, OLD G-TUBE SITE HAS PACKING IN PLACE, AREA CLEAN AND DRY. BED IN LOWEST POSITION AND BOTH SIDERAILS UP. NKDA MED HX - SEIZURE DO, GERD, DM, GERD, HTN, HLD, CHF, INTELLECTUAL DISABILITY, DYSPHAGI
--- NOTE | 2020-01-23 14:22 | NUR ---
Note undone in EDM - 01/23/20 at 1546 by [email or web address] PT WAS BROUGHT IN FROM [place] DUE TO G-TUBE BLOCKAGE. PT WAS AT [facility] 01/18/20 FOR G-T MALFUNCTION. G-TUBE WAS DISLODGED AND NEW G-TUBE PLACED, PT WAS ALSO FOUND TO HAVE ABD WALL CELLULITIS. G-TUBE SURGICALLY REPLACED. NORMAL BOWEL SOUNDS TO ALL QUADRANTS, RIGHT LOWER ABD MILD FIRMESS TO TOUCH, ARAE APPEARS TENDER UPON PALPATION. PT HAS MID-LINE BRAD PLACED FROM PRIOR G-TUBE REPLACEMENT, BRAD DRY, CLEAN, AND INTACT. DRESSING TO BOTH NEW AND OLD G-TUBE SITES, BOTH DRY, CLEAN, AND INTACT. BED IN LOWEST POSITION AND BOTH SIDERAILS UP. NKDA MED HX - SEIZURE DO, GERD, DM, GERD, HTN, HLD, CHF, INTELLECTUAL DISABILITY, DYSPHAGI
--- NOTE | 2020-01-23 14:25 | NUR ---
DIAPER CHANGED, SMALL BM. PICTURE TAKEN OF SACRAL AREA.
--- NOTE | 2020-01-23 14:37 | NUR ---
PT RETURNED FROM CT
--- NOTE | 2020-01-23 15:20 | NUR ---
PT CAME IN WITH IV #24 G TO LEFT HAND, IV D/C'ED, NONFUCTIONING AND NO DATE NOTED ON SITE
[2020-01-23 15:27] LABS: BASOPHILS # (AUTO) 0.1 K/uL (0.00-0.22); EOSINOPHILS % (AUTO) 0.1 % (0.0-4.0); HEMATOCRIT 35.1 % (36-48); LYMPHOCYTES # (AUTO) 1.8 K/uL (2.5-16.5); LYMPHOCYTES % (AUTO) 13.5 % (20.5-51.1); MEAN CORPUSCULAR HEMOGLOBIN 28 pg (27-31); MEAN CORPUSCULAR HGB CONC 31 g/dL (33-37); MEAN CORPUSCULAR VOLUME 89.8 fL (80-94); MONOCYTES % (AUTO) 7.2 % (1.7-9.3); NEUTROPHILS # (AUTO) 10.5 K/uL (1.8-7.7); NEUTROPHILS % (AUTO) 78.2 % (42.2-75.2); PLATELET COUNT (AUTO) 153 K/uL (140-450); RED BLOOD CELL COUNT(AUTO) 3.91 MIL/uL (4.20-5.40); RED CELL DISTRIBUTION WIDTH 19.5 % (11.6-13.7); WHITE BLOOD COUNT (AUTO) 13.4 K/uL (4.8-10.8)
[2020-01-23 15:57] LABS: ALBUMIN 2.4 g/dL (3.4-5.0); ANION GAP 15.3 (8-16); CARBON DIOXIDE 25.9 mmol/L (21-32); CREATININE 0.9 mg/dL (0.6-1.3); POTASSIUM 4.2 mmol/L (3.5-5.1); TOTAL BILIRUBIN 0.5 mg/dL (0.0-1.0)
[2020-01-23] MEDS ORDERED: ZOLPIDEM 5 MG TAB PO PRN (16:10)
[2020-01-23] MEDS ORDERED: ONDANSETRON 4 MG/2 ML VIAL IM/IVP PRN (16:10)
[2020-01-23] MEDS ORDERED: DOCUSATE SODIUM 100 MG GELCAP PO PRN (16:10)
[2020-01-23] MEDS ORDERED: HYDROcodone/APAP 5/325 MG 1 TAB TAB PO PRN (16:10)
[2020-01-23] MEDS ORDERED: LORazepam 2 MG/ML VIAL IM/IVP PRN (16:10)
[2020-01-23] MEDS ORDERED: cefTRIAXone 1,000 MG in LIDOCAINE MPF 1% 2.1 ML IM ONE (17:00)
[2020-01-23 17:25] LABS: PROTHROMBIN TIME 9.9 secs (10.8-13.4)
--- NOTE | 2020-01-23 17:30 | NUR ---
IN AND OUT CATH COMPLETED FOR UA
[2020-01-23 17:59] LABS: APPEARANCE,URINE CLEAR (CLEAR); BILIRUBIN,URINE NEGATIVE (NEGATIVE); BLOOD, URINE TRACE-I (NEGATIVE); COLOR,URINE YELLOW (YELLOW); LEUKOCYTE ESTERASE ,URINE TRACE (NEGATIVE); NITRITE, URINE NEGATIVE (NEGATIVE); UGLUCOSE NEGATIVE (NEGATIVE)
[2020-01-23 18:23] LABS: CHOL/HDL RATIO 8.2 (1-4.5); FREE T4 (FREE THYROXINE) 2.52 ng/dL (0.76-1.46); MAGNESIUM 2.4 mg/dL (1.8-2.4); PHOSPHORUS 2.8 mg/dL (2.5-4.9); THYROID STIMULATING HORMONE 0.09 uIU/mL (0.34-3.74)
[2020-01-23 18:25] LABS: BARBITURATE, URINE NEGATIVE ng/ml (NEG <=200); BENZODIAZEPINE, URINE NEGATIVE ng/mL (NEG <=200); CANNABINOID, URINE NEGATIVE ng/mL (NEG <=50); COCAINE, URINE NEGATIVE ng/mL (NEG <=300); OPIATE, URINE NEGATIVE ng/mL (NEG <=2000); PHENCYCLIDINE SCREEN,URINE NEGATIVE ng/mL (NEG <=25)
--- NOTE | 2020-01-23 18:25 | NUR ---
CALLED AWILDA FROM [facility]. AWILDA WANTED AN UPDATE ON THE PT, ADVISED SHE WILL BE ADMITTED FOR FURTHER FOLLOW-UP REGARDING THE G-TUBE. AWILDA'S PHONE # [phone]
[2020-01-23 18:32] LABS: RBC,URINE 0-5 /HPF (0-5)
[2020-01-23 19:25] VITALS: BP 145/79
--- NOTE | 2020-01-23 19:25 | NUR ---
ADMITTED A 69T FROM ER. CAME BY ALEKSEY. PT IS AWAKE BUT APHASIC. ON TELE MONITOR-ST. NO RESPIRATORY DISTRESS NOR DISCOMFORT NOTED. BEDBOUND. WITH HL ON THE LT AC g#22. HAS GT CLAMPED . DRESSING BESIDE IT ,OLD GT SITE. HAS SOME LOD SCABS ON ARMS AND SACRAL PRESSURE WOUND. POSITIONED COMFORTABLY IN BED. BED ON LOW POSITION, SIDE RAILS UP X2 AND PADDED FOR SEIZURE PRECAUTION . WILL FOLLOW UP ALL ADMITTING ORDERS. WILL CONTINUE TO MONITOR .
--- NOTE | 2020-01-23 19:28 | NUR ---
Patient will be admitted to care of DR. LAMA. Admited to TELE. Will go to room 107B. Belongings list completed. Report to DAVID BAILEY.
[2020-01-23] MEDS: NACL 0.9% 1,000 ML IV SCH ×2 (19:56→23:52)
[2020-01-23] MEDS ORDERED: levETIRAcetam 100 MG/ML VIAL IV ONE (20:21)
--- NOTE | 2020-01-23 20:30 | NUR ---
IV ACCESS ON THE LT AC G#22. STILL OK BUT PT KEEP ON BENDING IT. STARTED A NEW IV ACCESS LT HAND G#24. CLEAR AND PATENT.
[2020-01-23] MEDS: levETIRAcetam 1,000 MG in NACL 0.9% 100 ML IV SCH (20:31)
[2020-01-23] MEDS ORDERED: NON-FORMULARY ITEM (Divalproex Sodium* (Depakote Er (Extended Release)*) 250 MG) GT SCH (21:00)
[2020-01-23] MEDS: VALPROATE SODIUM 250 MG in NACL 0.9% 100 ML IV SCH (21:00)
--- NOTE | 2020-01-23 21:00 | NUR ---
LENA VAUGHN,SISTER CALLED FROM OUT OF STATE. SHE SAID TO CALL HER FOR ANYTHING ABOUT PT. PHONE .
--- NOTE | 2020-01-23 22:00 | NUR ---
REPOSITIONED FOR COMFORT. NO DISTRESS NOTED. WILL CONTINUE TO MONITOR.
[2020-01-23] MEDS ORDERED: cefTRIAXone 1,000 MG VIAL ONE (22:16)
[2020-01-24] VITALS: BP 136/76
--- NOTE | 2020-01-24 00:10 | NUR ---
DEPACON NOT AVAILABLE. EVEN RN BUSINESS SYSTEM CONSULTANT CAN'T OVERRIDE. CORONA MARES, RESIDENT MADE AWARE.
[2020-01-24] MEDS: NACL 0.9% 1,000 ML IV SCH ×4 (01:33→15:46)
--- NOTE | 2020-01-24 02:00 | NUR ---
PT SLEEPING AT THIS TIME. NO S/S OF ANY DISCOMFORT NOTED. WILL CONTINUE TO MONITOR.
--- NOTE | 2020-01-24 04:00 | NUR ---
PT VITAL SIGNS STABLE. NO S/S OF PAIN NOTED.
[2020-01-24 04:06] VITALS: BP 153/43
--- NOTE | 2020-01-24 05:00 | NUR ---
SCD MACHINE APPLIED TO BILATERAL LOWER LEG PER MD ORDER .
--- NOTE | 2020-01-24 05:24 | NUR ---
EKG DONE AT BEDSIDE-NSR.
[2020-01-24] MEDS ORDERED: Z-GUARD PASTE TP PRN (06:05)
--- NOTE | 2020-01-24 07:25 | NUR ---
RECEIVED REPORT FROM NIGHT NURSE FOR CONTINUITY OF CARE, PT IS STABLE, NO SIGNS OF DISTRESS NOTED, PT AWAKE, PT APPEARS APHASIC, PT DX WITH SEPSIS AND G-TUBE MALFUNCTION, PT HAS ABDOMINAL STITCHES COVERED WITH TWO PINK DRESSING, G-TUBE IN PLACE BUT IT IS NOT FLUSHING, PT HAS LEFT HAND 24G INFUSING NORMAL SALINE AT 130MOL/H, PT HAS SCD ON, BED IN LOW POSITION, BED ALARM ON, INTRODUCED SELF, UPDATED WHITEBOARD, SAFETY MEASURES IN PLACE, ALL NEEDS MET AT THIS TIME, WILL CONTINUE TO MONITOR.
--- NOTE | 2020-01-24 07:35 | NUR ---
ENDORSED PT IN STABLE CONDITION TO AM NURSE.
[2020-01-24 08:00] VITALS: BP 107/54
[2020-01-24] MEDS ORDERED: TAMSULOSIN 0.4 MG CAP GT SCH (09:00)
[2020-01-24] MEDS: Z-GUARD PASTE TP SCH (09:00)
[2020-01-24] MEDS ORDERED: PANTOPRAZOLE 40 MG INJ VIAL IVP SCH (09:00)
[2020-01-24] MEDS ORDERED: NON-FORMULARY ITEM (Lactulose 30 ML) PO SCH (09:00)
--- NOTE | 2020-01-24 09:44 | NUR ---
PATIENT HAS BEEN SCREENED AND CATEGORIZED HIGH NUTRITION RISK. PATIENT WILL BE SEEN WITHIN 1-2 DAYS OF ADMISSION. 01/24/20 01/25/[address]
[2020-01-24] MEDS: levETIRAcetam 1,000 MG in NACL 0.9% 100 ML IV SCH ×2 (10:10→20:21)
--- NOTE | 2020-01-24 10:19 | NUR ---
UNABLE TO GIVE TAMSULOSIN G-TUBE IS NOT FLUSHING, PT IS NPO. ADMINISTERED SCHEDULED MEDICATION, MEDICATION EDUCATION GIVEN, PT APHASIC, PT IS STABLE, RESPIRATIONS ARE EVEN AND UNLABORED ON ROOM AIR. CALL LIGHT WITHIN REACH.
[2020-01-24] MEDS: VALPROATE SODIUM 250 MG in NACL 0.9% 100 ML IV SCH ×2 (11:03→20:25)
--- NOTE | 2020-01-24 11:18 | NUR ---
PT BEING CHANGED BY DIRECTOR OF CONTENT MARKETING, PT IS STABLE, CALL LIGHT WITHIN REACH.
[2020-01-24 12:00] VITALS: BP 120/63
--- NOTE | 2020-01-24 13:00 | NUR ---
PT STABLE IN BED, NO SIGNS OF DISTRESSED NOTED, CALL LIGHT WITHIN REACH.
--- NOTE | 2020-01-24 15:00 | NUR ---
PT LAYING IN BED AWAKE, PT IS STABLE, NO SIGNS OF DISTRESSED NOTED, CALL LIGHT WITHIN REACH.
[2020-01-24] MEDS: MORPHINE SULFATE 2 MG/ML SYR IVP PRN (15:41)
--- NOTE | 2020-01-24 15:41 | NUR ---
ADMINISTERED MORPHINE TO PT FOR PAIN, FLACC 6, PT IS MOANING, PT EDUCATION GIVEN, PT STABLE, CALL LIGHT WITHIN REACH.
[2020-01-24 16:00] VITALS: BP 102/51
--- NOTE | 2020-01-24 17:00 | NUR ---
PT RESTING IN BED, NO SIGNS OF DISTRESS NOTED, CALL LIGHT WITHIN REACH.
--- NOTE | 2020-01-24 19:12 | NUR ---
GAVE REPORT TO NIGHT NURSE FOR CONTINUITY OF CARE, PT IS STABLE
--- NOTE | 2020-01-24 19:14 | NUR ---
RECEIVED PT IN STABLE CONDITION FROM AM NURSE. PT IS AWAKE,ALERT AND ORIENTED X1-2. ON TELE MONITOR. WITH NO C/O ANY PAIN NOR DISCOMFORT NOTED. HAS IVF INFUSING WELL ON THE LT HAND G#24. CLEAR AND PATENT. NPO . HAS GT THAT IS CLAMPED NOT WORKING. DRESSING ON THE OLD GT SITE. HAS INCISION ON MID ABDOMEN WITH BRAD. OPEN TO AIR. HAS DRESSING ON SACRAL AREA, WITH EXCORIATION. FREQ ROUNDS NEEDED. BED ON LOWEST POSITION. SIDE RAILS UP X2 AND PADDED. CALL LIGHT WITHIN REACH. WILL CONTINUE TO MONITOR.
[2020-01-24 20:00] VITALS: BP 133/70
--- NOTE | 2020-01-24 21:00 | NUR ---
INCONTINENT OF URINE. CLEANED AND KEPT DRY. REPOSITIONED FOR COMFORT.
--- NOTE | 2020-01-24 23:00 | NUR ---
PT REPOSITIONED FOR COMFORT. NO PAIN NOR DISTRESS NOTED.
[2020-01-25] VITALS: BP 104/56
--- NOTE | 2020-01-25 01:00 | NUR ---
MADE ROUNDS. PT ASLEEP. NO S/S DISCOMFORT NOTED.
[2020-01-25] MEDS: NACL 0.9% 1,000 ML IV SCH (01:36)
[2020-01-25 03:47] VITALS: BP 140/53
[2020-01-25] MEDS: MORPHINE SULFATE 2 MG/ML SYR IVP PRN (03:59)
--- NOTE | 2020-01-25 03:59 | NUR ---
PT HAS BEEN MOANING . GIVEN PAIN MED ORDERED.WILL CONTINUE TO MONITOR.
--- NOTE | 2020-01-25 04:38 | NUR ---
AUTHORIZATION TO GET MEDICAL RECORDS TO [facility] WAS FAXED [facility]SI [facility]. WILL ENDORSE TO AM NURSE FOR FOLLOW UP.
--- NOTE | 2020-01-25 05:30 | NUR ---
HAS BEEN REPOSITIONED FOR COMFORT.
--- NOTE | 2020-01-25 07:00 | NUR ---
RECEIVED PT FROM FIELD MAP TECHNICIAN NURSE. PT IS AWAKE AND IN BED, AAOX1, PT. IS INCOMPREHENSIBLE. ON TELE MONITOR. WITH NO C/O ANY PAIN NOR DISCOMFORT NOTED. IV ON THE LEFT HAND 24G WITH NS RUNNING AT 130ML/HR, AND LEFT AC 20G HEPLOCK. IV SITES ARE PATENT AND FLUSHES WELL. PT. IS ON NPO . HAS GT PRESENT ON THE LEFT UPPER ABDOMEN, CLAMPED AND NOT WORKING. DRESSING ON THE OLD GT SITE. HAS INCISION ON MID ABDOMEN WITH 19 LOOSE BRAD. OPEN TO AIR. HAS DRESSING ON SACRAL AREA, WITH EXCORIATION. FREQ ROUNDS NEEDED. BED ON LOWEST POSITION. SIDE RAILS UP X2 AND PADDED. PLAN OF CARE REVIEWED. CALL LIGHT WITHIN REACH. WILL CONTINUE TO MONITOR.
--- NOTE | 2020-01-25 07:20 | NUR ---
KEPT NPO FOR EGD AND REPLACE OF G TUBE . ENDORSED PT IN STABLE CONDITION TO AM NURSE.
[2020-01-25 08:00] VITALS: BP 142/70
[2020-01-25 08:35] LABS: BASOPHILS # (AUTO) 0.1 K/uL (0.00-0.22); BASOPHILS % (AUTO) 1.3 % (0.0-2.0); EOSINOPHILS % (AUTO) 0.3 % (0.0-4.0); HEMATOCRIT 34.8 % (36-48); HEMOGLOBIN 10.7 g/dL (12.0-16.0); LYMPHOCYTES % (AUTO) 17.4 % (20.5-51.1); MEAN CORPUSCULAR HEMOGLOBIN 28 pg (27-31); MEAN CORPUSCULAR HGB CONC 31 g/dL (33-37); MEAN CORPUSCULAR VOLUME 92.4 fL (80-94); MONOCYTES # (AUTO) 0.5 K/uL (0.8-1.0); MONOCYTES % (AUTO) 7.9 % (1.7-9.3); NEUTROPHILS # (AUTO) 4.2 K/uL (1.8-7.7); NEUTROPHILS % (AUTO) 73.1 % (42.2-75.2); PLATELET COUNT (AUTO) 150 K/uL (140-450); RED BLOOD CELL COUNT(AUTO) 3.76 MIL/uL (4.20-5.40); RED CELL DISTRIBUTION WIDTH 19.8 % (11.6-13.7); WHITE BLOOD COUNT (AUTO) 5.7 K/uL (4.8-10.8)
[2020-01-25] MEDS ORDERED: DEXT 5% /NACL 0.9% 1,000 ML IV SCH (08:40)
--- NOTE | 2020-01-25 09:20 | NUR ---
PT. IS CHANGED, CLEANED AND TURNED. ABDOMINAL WOUNDS CLEANED AND OPEN TO AIR. NO SIGNS OF DISTRESS FROM PT. WILL CONTINUE TO MONITOR.
[2020-01-25] MEDS ORDERED: fentaNYL 0.05 MG/ML VIAL ONE (09:30)
[2020-01-25] MEDS ORDERED: MIDAZOLAM 2 MG/2 ML VIAL ONE (09:30)
--- NOTE | 2020-01-25 09:30 | NUR ---
WOUND CARE EVALUATION NOTE: REASON FOR EVALUATION: LOW ANJELICA SCALE AND SURGICAL WOUND SKIN ASSESSMENT DONE WITH THIS 69 Y/O FEMALE PT ADMITTED FROM [facility] [place] [facility] WITH INITIAL DX GT MALFUNCTIONING X 1 DAY. PT. ADMITTED WITH INFECTED ABDOMINAL WALL SURGICAL WOUNDS. PAST MEDICAL HISTORY MENTAL DISABILITY, SEIZURE DISORDER, URINARY RETENTION, DYSLIPIDEMIA, CONSTIPATION AND GERD. PT IS AWAKE. SKIN IS WARM AND DRY, BLE HAIR NO GROWTH, NO EDEMA. DORSAL PEDAL PULSES PRESENT AND NORMAL. CAPILLARY REFILLED < 2 SEC. X INCONTINENT OF BOWEL AND BLADDER. PLAN OF CARE DISCUSSED WITH PRIMARY RN AND DR. FALK. INTEGUMENTARY: - LUQ GT SITE DAVE STOMA SKIN WITH MULTIPLE EROSIONS, WOUND BED RED, MOIST, NO ODOR -MID ABDOMEN SURGICAL WOUND 15 CM IN LENGTH AND TOTAL OF 19 LOOSE BRAD AND OBSERVED FEW MISSING BRAD AND GAPS CREATED, WOUND BED IS YELLOW, DAVE-WOUND SKIN ERYTHEMA, WARM TO TOUCH, SMALL AMOUNT PURULENT DRAINAGE, MILD ODOR. -LEFT ABDOMEN WALL SURGICAL WOUND 2 SITES, SITE #1 OPEN WOUND 1X1.5X0.2CM, WOUND BED IS SOFT BROWN SLOUGH TISSUE MOIST, NO ODOR, DAVE WOUND SKIN DRY AND INTACT. AND SITE #2 OPEN WOUND 2X4X0.3CM, WOUND BED IS 100% GRANULATING TISSUE, SMALL AMOUNT SANGUINOUS DRAINAGE, NO ODOR, DAVE WOUND SKIN DRY AND INTACT -INCONTINENT ASSOCIATE DERMATITIS (IAD) TO LEFT BUTTOCK, AREA MOIST AND RED, ONE SMALL EROSION 0.5X0.5CM SUPERFICIAL DEPTH -RIGHT BUTTOCK 2X1 CM THIN DRY SCAB, DAVE SCAB SKIN WIRH BLANCHABLE REDNESS EXTENDED TO SACROCOCCYX RECOMMENDATIONS: -WOUND CULTURE TO MID ABDOMINAL WOUND -SURGEON TO CONSULT MID ABD SURGICAL WOUND -CLEANSE MID ABDOMEN SURGICAL WOUND WITH NS, PAT DRY APPLY TOPICAL ANTIBIOTIC OINTMENT AND COVER WITH DRY DRESSING QD AND PRN IF SOILING. -CLEANSE LEFT ABDOMEN WALL SURGICAL WOUND 2 SITES WITH NS, PAT DRY APPLY CALCIUM ALGINATE DRESSING AND COVER WITH DRY DRESSING 3X/WEEK ON -- AND PRN IF SOILING. -CLEANSE GT DAVE STOMA SKIN, B/L GROINS, EXTENDED TO LEFT BUTTOCK WITH SOAP AND WATER, PAT DRY, APPLY Z-GUARD BIDWC AND PRN IF SOILING -APPLY FORM DRESSING TO SACROCOCCYX Q7 DAYS AND PRN IF SOILING PREVENTION -APPLY HEEL PROTECTORS TO BOTH HEELS AT ALL TIMES -OFFLOAD BILATERAL HEELS BY PLACING PILLOWS UNDER CALVES UNLESS OTHERWISE CONTRAINDICATED -PRESSURE REDISTRIBUTION SURFACE THERAPY -TURN AND REPOSITION Q2H, OFFLOAD SACRALCOCCYX AND BUTTOCKS BY TURNING RIGHT AND LEFT -CONTINUE TO FOLLOW RD RECOMMENDATIONS -D/C PLAN: RECOMMEND SNF OR HOME HEALTH FOR WOUND CARE ALL ABOVE RECOMMENDATIONS DISCUSSED WITH PRIMARY RN. WILL FOLLOW UP PT Q7-10 DAYS. PLEASE CONTACT WOUND CARE NURSE FOR ANY QUESTION AND CHANGE OF WOUND CONDITION.
--- NOTE | 2020-01-25 09:30 | NUR ---
WOUND CARE NURSE, STEVE, IS BY THE BEDSIDE. ABDOMINAL INCISION AND OPEN WOUNDS CLEANED AND REINFORCED WITH DRESSINGS. NEW ORDERS FOR Z-GUARD AND ALGINATE DRESSING ON THE LEFT ABDOMINAL WOUND. AEROBIC CULTURES TO BE COLLECTED FROM ABDOMINAL INCISION WOUND AND LEFT ABDOMINAL OPEN WOUND. WILL CONTINUE TO MONITOR.
--- NOTE | 2020-01-25 10:00 | NUR ---
PT. LEFT TO OR FOR EGD PROCEDURE. BELONGINGS BY THE BEDSIDE. NO SIGNS OF DISTRESS NOTED. PRE-OP CHECKLIST COMPLETED AND CONSENT IS PRESENT. WILL CONTINUE TO MONITOR.
--- NOTE | 2020-01-25 10:30 | NUR ---
DISCHARGE PLANNING: CONTACTED HI LIFT OPERATOR KASSIDY OF [facility] AT [phone] TO PROVIDE UPDATES ON THE PATIENT'S CONDITION. SHE STATED THAT THE PATIENT WAS IN [place] DAYS PRIOR THIS ADMISSION DUE TO THE SAME PROBLEM. SHE ALSO MENTIONED PATIENT'S SISTER JOHANA IS THE CONSERVATOR AND MAKES DECISIONS FOR THE PATIENT AND TO INFORM HER OF ANY DISCHARGE NEEDS. SHE ALSO REQUESTED TO SEND HER UPDATED CLINICALS FOR THEIR RECORDS. UPDATED CLINICALS SENT TO [phone]. Addendum: 01/27/20 at 1623 by Fay Viveros CM DC PLANNING SEEN BY ASSURANCE OFFICER DR KAVITHA PECK TRENDING SODIUM LEVEL ON TODAY'S LAB NA+ 155 D5 WATER AT 75CC/HR WITH G-TUBE FLUSHES Q6HRS 200ML WATER , CONTINUE ROCEPHIN IV ABX DC PLAN TOGO BACK TO [facility] WHEN STABLE CM TO FOLLOW Addendum: 01/27/20 at 1636 by Vani Fall CM CONTACTED PATIENT'S SISTER JOHANA TODD, NO ANSWER. LEFT MESSAGE. WILL FOLLOW UP. Addendum: 01/28/20 at 1029 by Vani Fall CM 1010: CONTACTED PATIENT'S SISTER JOHANA TODD TO DISCUSS DC PLANNING AND IMM LETTER AND IS IN AGREEMENT. SHE REQUESTED TO HAVE RESIDENT CALL HER FOR UPDATES REGARDING PATIENT'S CONDITION. DR. MARTELL MADE AWARE. CLINICALS SENT TO [facility]. LEFT MESSAGE TO KASSIDY ALDRIDGE WORKER AT [facility] [phone] REGARDING DC PLAN. Addendum: 01/28/20 at 1422 by Vani Fall CM PER RENE OF [facility], PATIENT WILL GO TO ROOM 23A UNDER DR. CONNER LAMBERT. PRIMARY RN MADE AWARE. Addendum: 01/28/20 at 1433 by Adrián Aguilar CIARRA contacted Aisha from [employer] [phone]. CIARRA arranged for transportation from [facility] to [facility]. Patient will be in bed 23A. Transportation will arrive at 1830. Nurse was notified. No further needs identified. Addendum: 01/28/20 at 1523 by Adrián DIXON CIARRA contacted patient's sister, Johana Todd [phone] to inform of patient's discharge plan. Johana was agreeable to discharge plan and verbalized appreciation. No further needs identified. Addendum: 01/28/20 at 1626 by Adrián Aguilar SS CIARRA spoke with Rene from [facility] who stated that patient will be going to room 51A instead of 23A. Nurse was notified. Addendum: 01/28/20 at 1718 by Vani Fall IRAIS OF [facility] MADE AWARE OF BIOMECHANICAL ENGINEER TIME.
[2020-01-25] MEDS ORDERED: FUROSEMIDE 20 MG/2 ML VIAL IVP SCH (11:00)
[2020-01-25] MEDS: Z-GUARD PASTE TP SCH (11:13)
--- NOTE | 2020-01-25 11:20 | NUR ---
PT. IS BACK FROM PROCEDURE. NO SIGNS OF DISTRESS NOTED. V/S TAKEN BP 142/86, HR 105, O2 STAT OF 96% ON ROOM AIR, TEMP OF 99.1, RR 20, AND PT. VERBALIZES NO PAIN. WILL CONTINUE TO MONITOR.
[2020-01-25 11:57] LABS: ANION GAP 17.7 (8-16); CARBON DIOXIDE 23.1 mmol/L (21-32); CREATININE 0.6 mg/dL (0.6-1.3); POTASSIUM 3.8 mmol/L (3.5-5.1)
[2020-01-25 11:59] LABS: PHOSPHORUS 2.5 mg/dL (2.5-4.9)
[2020-01-25 12:00] VITALS: BP 142/86
--- NOTE | 2020-01-25 12:00 | NUR ---
NEW ORDERS TO START TUBE FEEDINGS, JEVITY 1.2 WITH 50ML Q6HR FLUSH. WILL FOLLOW THROUGH.
[2020-01-25] MEDS ORDERED: MIDAZOLAM 2 MG/2 ML VIAL IVP ONE (12:40)
[2020-01-25] MEDS ORDERED: fentaNYL 0.05 MG/ML VIAL IVP ONE (12:40)
--- NOTE | 2020-01-25 14:34 | NUR ---
01/25/2020 RD INITIAL ASSESSMENT COMPLETED PLEASE REFER TO NUTRITION ASSESSMENT UNDER CARE ACTIVITY FOR ESTIMATED NUTRITIONAL NEEDS. ONCE NET PEG IS PLACED, AND PT IS APPROPRIATE FOR GT FEEDS, PT SHOULD CONTINUE DIET FROM NURSING FACILITY. IN CASE NO PREVIOUS DIET CAN BE OBTAINED, JEVITY 1.2 @ 50 ML/HR WILL PROVIDE 1440 KCALS (100% EST KCAL NEEDS) AND 67 GM PRO (100% EST PRO NEEDS/DAY) RD TO FOLLOW-UP IN 2-3 DAYS PATIENT IS HIGH RISK. TONY BOOTH RD
[2020-01-25] MEDS ORDERED: LORazepam 0.5 MG TAB GT PRN (15:20)
[2020-01-25] MEDS: ALGINATE DRESSING MC SCH (15:55)
[2020-01-25 16:00] VITALS: BP 141/79
--- NOTE | 2020-01-25 17:00 | NUR ---
PT. IS CLEANED AND TURNED. NO SIGNS OF DISTRESS NOTED. V/S TAKEN 141/79, HR 102, O2 STAT OF 94%, RR 24, TEMP 97.6F AND VERBALIZES NO PAIN. WILL CONTINUE TO MONITOR.
--- NOTE | 2020-01-25 19:15 | NUR ---
ENDORSED TO ANIMAL PHYSIOLOGY TEACHER NURSEKASSIDY, FOR CONTINUITY OF CARE.
--- NOTE | 2020-01-25 19:16 | NUR ---
RECEIVED PT FROM AM SHIFT NURSE, MORENO. PT IS AWAKE AND IN BED, AAOX1, FLACC 0 PT. IS INCOMPREHENSIBLE. ON TELE MONITOR. WITH NO C/O ANY PAIN NOR DISCOMFORT NOTED. UPON RECEIPT. IV ON THE LEFT HAND 24G AND LEFT AC 20G HEPLOCK. IV SITES ARE PATENT AND FLUSHES WELL.HAS GT PRESENT ON THE LEFT UPPER ABDOMEN, NEWLY INSERTED GT TUBE AM SHIFT. HAS INCISION ON MID ABDOMEN WITH 19 LOOSE BRAD. OPEN TO AIR. PT HAS DRESSING ON SACRAL AREA, WITH EXCORIATION. BED ON LOWEST POSITION. SIDE RAILS UP X2 AND PADDED. PLAN OF CARE REVIEWED. CALL LIGHT WITHIN REACH. WILL CONTINUE TO MONITOR.
[2020-01-25 20:00] VITALS: BP 152/70
[2020-01-25] MEDS ORDERED: DIVALPROEX 250 MG TABEC PO SCH (21:00)
[2020-01-25] MEDS: DIVALPROEX SPRINKLES 125 MG CAPDR GT SCH (21:59)
[2020-01-25] MEDS: levETIRAcetam 100 MG/ML ORASYR GT SCH (22:00)
--- NOTE | 2020-01-25 22:00 | NUR ---
PATIENT MOANING AND GROANING. INFORMED DR. ZAMORA .RE; PROBABLY WOUNDS ON THE MID ABDOMEN AND LEFT ABDOMEN. HE SAID HE WILL ORDER PAIN MEDS
[2020-01-25] MEDS: SIMVASTATIN 20 MG TAB GT SCH (22:02)
[2020-01-25] MEDS: BACITRACIN OINT 15000 UNITS/30 GM TUBE TP SCH (22:04)
[2020-01-26] VITALS: BP_SYST 101; BP_SYST 125; BP_DIAS 64; BP_DIAS 70
[2020-01-26] MEDS: MORPHINE SULFATE 2 MG/ML SYR IVP PRN ×3 (00:52→18:32)
[2020-01-26] MEDS: Z-GUARD PASTE TP SCH ×3 (01:04→22:12)
--- NOTE | 2020-01-26 01:43 | NUR ---
PT SLEEPING FOR NOW, NO MOANING NOTED. WILL CONTINUE TO MONITOR
[2020-01-26 04:00] VITALS: BP 130/62
--- NOTE | 2020-01-26 04:27 | NUR ---
PT SLEEPING, NOT IN RESPIRATORY DISTRESS,NO FACIAL GRIMACING NOTED
--- NOTE | 2020-01-26 06:59 | NUR ---
PT STILL WITH TUBE FEEDING LEFT 300 ML, WILL ENDORSE TO NEXT SHIFT. PT IN STABLE CONDITION. FOR WOUND CARE
--- NOTE | 2020-01-26 07:15 | NUR ---
RECEIVED PT FROM TUNE UP MECHANIC NURSEKASSIDY. PT IS AWAKE AND IN BED, AAOX1, PT. IS INCOMPREHENSIBLE. ON TELE MONITOR. WITH NO C/O ANY PAIN NOR DISCOMFORT NOTED. IV ON THE LEFT HAND 24G WITH NS RUNNING AT 130ML/HR, AND LEFT AC 20G HEPLOCK. IV SITES ARE PATENT AND FLUSHES WELL. PT. IS ON NPO . HAS GT PRESENT ON THE LEFT UPPER ABDOMEN, WITH JEVITY 1.2 RUNNING AT 50ML/HR WITH Q6H 100ML FLUSHES. DRESSINGS PRESENT ON HER ABDOMEN INCISION SITE AND G-TUBE ERROSION SITE. HAS INCISION ON MID ABDOMEN WITH 19 LOOSE BRAD. OPEN TO AIR. HAS DRESSING ON SACRAL AREA, WITH EXCORIATION. FREQ ROUNDS NEEDED. BED ON LOWEST POSITION. SIDE RAILS UP X2 AND PADDED. PLAN OF CARE REVIEWED. CALL LIGHT WITHIN REACH. WILL CONTINUE TO MONITOR.
[2020-01-26 07:49] LABS: BASOPHILS % (AUTO) 0.7 % (0.0-2.0); EOSINOPHILS % (AUTO) 0.3 % (0.0-4.0); HEMATOCRIT 33.8 % (36-48); HEMOGLOBIN 10.4 g/dL (12.0-16.0); LYMPHOCYTES # (AUTO) 1.5 K/uL (2.5-16.5); MEAN CORPUSCULAR HEMOGLOBIN 28 pg (27-31); MEAN CORPUSCULAR HGB CONC 31 g/dL (33-37); MEAN CORPUSCULAR VOLUME 92.3 fL (80-94); MONOCYTES # (AUTO) 0.7 K/uL (0.8-1.0); MONOCYTES % (AUTO) 9.7 % (1.7-9.3); NEUTROPHILS # (AUTO) 4.5 K/uL (1.8-7.7); NEUTROPHILS % (AUTO) 66.3 % (42.2-75.2); PLATELET COUNT (AUTO) 207 K/uL (140-450); RED BLOOD CELL COUNT(AUTO) 3.67 MIL/uL (4.20-5.40); WHITE BLOOD COUNT (AUTO) 6.7 K/uL (4.8-10.8)
[2020-01-26 08:00] VITALS: BP 147/61
[2020-01-26] MEDS ORDERED: Z-GUARD PASTE TP PRN (08:00)
[2020-01-26 08:05] LABS: CARBON DIOXIDE 27.7 mmol/L (21-32); CREATININE 0.7 mg/dL (0.6-1.3); POTASSIUM 3.7 mmol/L (3.5-5.1)
[2020-01-26] MEDS ORDERED: TAMSULOSIN 0.4 MG CAP PO SCH (08:30)
[2020-01-26] MEDS ORDERED: NACL 0.45% 1,000 ML IV SCH (08:40)
[2020-01-26] MEDS ORDERED: LACTULOSE 20 GM/30 ML UDC GT SCH (09:00)
[2020-01-26] MEDS: FAMOTIDINE 20 MG TAB GT SCH (09:43)
[2020-01-26] MEDS: LACTULOSE 20 GM/30 ML UDC PO SCH (09:43)
[2020-01-26] MEDS: DIVALPROEX SPRINKLES 125 MG CAPDR GT SCH ×2 (09:44→22:08)
[2020-01-26] MEDS: LORATADINE 10 MG TAB PO SCH (09:44)
[2020-01-26] MEDS: levETIRAcetam 100 MG/ML ORASYR GT SCH ×2 (09:44→22:09)
[2020-01-26] MEDS: BACITRACIN OINT 15000 UNITS/30 GM TUBE TP SCH ×2 (09:45→22:12)
--- NOTE | 2020-01-26 09:45 | NUR ---
MORNING MEDICATIONS GIVEN. NO SIGNS OF DISTRESS NOTED. WILL CONTINUE TO MONITOR.
[2020-01-26] MEDS ORDERED: CRUSHER, PILL MC ONE (09:48)
--- NOTE | 2020-01-26 10:00 | NUR ---
PT. IS TURNED, CLEANED AND CHANGED. 1MG IVP OF MORPHINE GIVEN FOR FLACC SCORE OF 7, PT VISIBLY MOANING AND GRIMACING. BP 147/61, HR 99. WILL CONTINUE TO MONITOR.
[2020-01-26 12:00] VITALS: BP 149/88
[2020-01-26] MEDS: GAUZE TP SCH (12:50)
--- NOTE | 2020-01-26 13:50 | NUR ---
PT'S SISTER, JOHANA HAWKINS, CALLED. GIVEN UPDATES ABOUT PT'S CONDITION. WILL CONTINUE TO MONITOR.
[2020-01-26 16:00] VITALS: BP 174/85
--- NOTE | 2020-01-26 16:15 | NUR ---
PT IS CLEANED, CHANGED AND TURNED. OPEN ABDOMINAL WOUNDS AND SACRAL WOUND CLEANED AND NEW DRESSING APPLIED WITH REINFORCED WITH Z-GUARD. NO SIGNS OF DISTRESS NOTED. WILL CONTINUE TO MONITOR.
[2020-01-26 16:26] LABS: ANION GAP 10.4 (8-16); CREATININE 0.9 mg/dL (0.6-1.3); POTASSIUM 3.4 mmol/L (3.5-5.1)
--- NOTE | 2020-01-26 18:00 | NUR ---
NEW ORDERS FOR POTASSIUM CHLORIDE IVF TO BE GIVEN. PT. IS VISIBLY IN PAIN WITH FLACC SCORE OF 6. WILL MEDICATE.
--- NOTE | 2020-01-26 18:30 | NUR ---
MORPHINE IVP 1MG GIVEN FOR FLACC SCORE OF 6. NO SIGNS OF DISTRESS NOTED. BP 174/85, HR 98. WILL CONTINEU TO MONITOR.
[2020-01-26] MEDS: POTASSIUM CHLORIDE 10 MEQ in DEXTROSE 5% 1,000 ML IV SCH (18:31)
--- NOTE | 2020-01-26 18:50 | NUR ---
REASSESSED PT'S BLOOD PRESSURE. BP IS 120/88, HR 99. WILL CONTINUE TO MONITOR.
--- NOTE | 2020-01-26 19:10 | NUR ---
ENDORSED PT. TO LOCK OPERATOR NURSE, KASSIDY, FOR CONTINUITY OF CARE.
--- NOTE | 2020-01-26 19:12 | NUR ---
RECEIVED PT FROM AM SHIFT NURSE, MORENO. PT IS AWAKE AND IN BED, AAOX1, FLACC 0 PT. IS INCOMPREHENSIBLE. ON TELE MONITOR. WITH NO C/O ANY PAIN NOR DISCOMFORT NOTED. UPON RECEIPT. IV ON THE LEFT HAND 24G, SALINE LOCK AND LEFT AC 20G RUNNING POTASSIUM CHLORIDE AT PRESCRIBED RATE. HAS GT PRESENT ON THE LEFT UPPER ABDOMEN, NEWLY INSERTED GT TUBE WITH EXCORIATION ON THE G TUBE SITE. HAS INCISION ON MID ABDOMEN WITH 19 LOOSE BRAD. WITH DRESSING INTACT, PT HAS DRESSING ON SACRAL AREA, DRY EXCORIATION. BED ON LOWEST POSITION. SIDE RAILS UP X2 AND PADDED. PLAN OF CARE REVIEWED. CALL LIGHT WITHIN REACH. WILL CONTINUE TO MONITOR.
[2020-01-26 20:00] VITALS: BP 134/59
[2020-01-26] MEDS: SIMVASTATIN 20 MG TAB GT SCH (22:08)
--- NOTE | 2020-01-26 22:13 | NUR ---
TURNED PATIENT TO ONE SIDE, OFFLOADED AND PLACED PILLOWS ON PRESSURE AREAS.
[2020-01-26] MEDS: LATANOPROST 0.005% OP 2.5 ML BTL OP SCH (22:14)
[2020-01-26 22:48] LABS: ANION GAP 8.8 (8-16); CARBON DIOXIDE 30.8 mmol/L (21-32); CREATININE 0.8 mg/dL (0.6-1.3); POTASSIUM 3.6 mmol/L (3.5-5.1)
[2020-01-27] VITALS: BP 127/58
--- NOTE | 2020-01-27 01:12 | NUR ---
TURNED PATIENT TO ONE SIDE AND PT OFFLOADED PRESSURE AREAS
--- NOTE | 2020-01-27 01:20 | NUR ---
DISCONTINUED IVF ON THE LEFT AC G 22, INFILTRATED, ELEVATED HAND TO DECREASE SWELLING.
--- NOTE | 2020-01-27 01:30 | NUR ---
IVF STARTED ON THE RIGHT WRIST G 24, PATENT5 AND INTACT
[2020-01-27] MEDS ORDERED: NACL 0.45% 1,000 ML IV SCH (02:30)
[2020-01-27] MEDS: MORPHINE SULFATE 2 MG/ML SYR IVP PRN (03:40)
[2020-01-27 04:00] VITALS: BP 152/77
[2020-01-27 06:59] LABS: BASOPHILS % (AUTO) 0.7 % (0.0-2.0); EOSINOPHILS % (AUTO) 0.6 % (0.0-4.0); HEMATOCRIT 32.2 % (36-48); HEMOGLOBIN 10.1 g/dL (12.0-16.0); LYMPHOCYTES # (AUTO) 1.3 K/uL (2.5-16.5); LYMPHOCYTES % (AUTO) 22.8 % (20.5-51.1); MEAN CORPUSCULAR HEMOGLOBIN 29 pg (27-31); MEAN CORPUSCULAR HGB CONC 31 g/dL (33-37); MEAN CORPUSCULAR VOLUME 92.4 fL (80-94); MONOCYTES # (AUTO) 0.4 K/uL (0.8-1.0); MONOCYTES % (AUTO) 7.9 % (1.7-9.3); NEUTROPHILS # (AUTO) 3.7 K/uL (1.8-7.7); PLATELET COUNT (AUTO) 183 K/uL (140-450); RED BLOOD CELL COUNT(AUTO) 3.48 MIL/uL (4.20-5.40); RED CELL DISTRIBUTION WIDTH 19.8 % (11.6-13.7); WHITE BLOOD COUNT (AUTO) 5.5 K/uL (4.8-10.8)
--- NOTE | 2020-01-27 07:00 | NUR ---
RECEIVED REPORT FROM MAKE UP OPERATOR HELPER NURSE KASSIDY-LEO. PT RESTING IN BED, AOX1-CONFUSED, ON ROOM AIR, IV SITE LEFT RING FINGER #24G/SL, RIGHT WRIST #24 RUNNING KCL @ 60ML/HR. G-TUBE IN PLACE RUNNING JEVITY 1.2 @ 50ML/HR, WATER FLUSH 200ML Q6H- ZERO RESIDUAL. MID ABD SURGICAL INCISION 19 BRAD COVERED BY DRESSING, LEFT ABD SURGICAL INCISION- COVERED BY DRESSING, AND SACRAL COVERED IN OPTIFOAM WITH PERINEAL INCONTINENT DERMATITIS. NO S/S OF RESPIRATORY DISTRESS OR DISCOMFORT NOTED AT THIS TIME. WILL CONTINUE TO MONITOR.
[2020-01-27 07:38] LABS: CARBON DIOXIDE 29.9 mmol/L (21-32); CREATININE 0.7 mg/dL (0.6-1.3); POTASSIUM 3.4 mmol/L (3.5-5.1)
[2020-01-27 07:49] LABS: ANION GAP 11.5 (8-16)
[2020-01-27 08:00] VITALS: BP 156/66
[2020-01-27] MEDS: LACTULOSE 20 GM/30 ML UDC PO SCH (09:23)
[2020-01-27] MEDS: levETIRAcetam 100 MG/ML ORASYR GT SCH ×2 (09:23→20:36)
[2020-01-27] MEDS: DIVALPROEX SPRINKLES 125 MG CAPDR GT SCH ×2 (09:23→20:36)
[2020-01-27] MEDS: LORATADINE 10 MG TAB PO SCH (09:23)
[2020-01-27] MEDS: FAMOTIDINE 20 MG TAB GT SCH (09:23)
--- NOTE | 2020-01-27 09:23 | NUR ---
SCHEDULED MEDICATIONS GIVEN AND TOLERATED WELL. NO S/S OF RESPIRATORY DISTRESS OR DISCOMFORT NOTED AT THIS TIME. WILL CONTINUE TO MONITOR.
[2020-01-27] MEDS: BACITRACIN OINT 15000 UNITS/30 GM TUBE TP SCH ×2 (09:24→20:38)
[2020-01-27] MEDS: POTASSIUM CHLORIDE 10 MEQ in DEXTROSE 5% 1,000 ML IV SCH ×2 (10:45→15:19)
--- NOTE | 2020-01-27 11:00 | NUR ---
PT RESTING IN BED. NO S/S OF RESPIRATORY DISTRESS OR DISCOMFORT NOTED AT THIS TIME. WILL CONTINUE TO MONITOR.
[2020-01-27 12:00] VITALS: BP 100/50
[2020-01-27] MEDS: Z-GUARD PASTE TP SCH (13:00)
[2020-01-27] MEDS: GAUZE TP SCH (13:00)
--- NOTE | 2020-01-27 13:00 | NUR ---
WOUND CARE DONE. PT TOLERATED WELL. NO S/S OF RESPIRATORY DISTRESS OR DISCOMFORT NOTED AT THIS TIME. WILL CONTINUE TO MONITOR.
[2020-01-27 13:47] LABS: ANION GAP 9.6 (8-16); CARBON DIOXIDE 31.3 mmol/L (21-32); CREATININE 0.8 mg/dL (0.6-1.3); POTASSIUM 3.9 mmol/L (3.5-5.1)
--- NOTE | 2020-01-27 15:19 | NUR ---
NEW ORDER KCL IVF @75ML/HR GIVEN AND TOLERATING WELL. NO S/S OF RESPIRATORY DISTRESS OR DISCOMFORT NOTED AT THIS TIME. WILL CONTINUE TO MONITOR.
[2020-01-27 16:00] VITALS: BP 108/49
--- NOTE | 2020-01-27 16:00 | NUR ---
19 BRAD REMOVED. PT TOLERATED WELL. NO S/S OF RESPIRATORY DISTRESS OR DISCOMFORT NOTED AT THIS TIME. WILL CONTINUE TO MONITOR.
[2020-01-27] MEDS ORDERED: BUMETANIDE 1 MG/4 ML VIAL IV SCH (18:00)
--- NOTE | 2020-01-27 18:18 | NUR ---
SCHEDULED MEDICATION BUMEX GIVEN AND TOLERATED WELL. NO S/S OF RESPIRATORY DISTRESS OR DISCOMFORT NOTED AT THIS TIME. WILL CONTINUE TO MONITOR.
--- NOTE | 2020-01-27 19:10 | NUR ---
RECEIVED PT IN STABLE CONDITION FROM AM NURSE FOR CONTINUITY OF CARE. AWAKE, ALERT AND ORIENTED X 1-2. WITH NO RESPIRATORY DISTRESS NOTED. TELEMETRY PT. BEDBOUND. WITH IVF INFUSING WELL ON THE RT WRIST G#24. CLEAR AND PATENT. GT FEEDING GOING ON. TOLERATING WELL. WITH ABDOMINAL DRESSING, CLEAN AND DRY. SACRAL PRESSURE WOUND WITH DRESSING ALSO. FREQ ROUNDS , BED ON LOW POSITION. ORACLE SQL DEVELOPER RAILS UP X2 AND PADDED FOR SEIZURE PRECAUTION. CALL LIGHT WIHTIN REACH. WILL CONTINUE TO MONITOR.
[2020-01-27 20:00] VITALS: BP 129/78
[2020-01-27] MEDS ORDERED: MUPIROCIN CA NASAL 2% 1GM TUBE NS ONE (20:14)
[2020-01-27] MEDS: SIMVASTATIN 20 MG TAB GT SCH (20:36)
--- NOTE | 2020-01-27 20:45 | NUR ---
STRAIGHT CATH ORDERED. PROCEDURE TOLERATED. URINE SPECIMEN COLLECTED FOR SODIUM RANDOM. SEND TO LAB.
[2020-01-27] MEDS: LATANOPROST 0.005% OP 2.5 ML BTL OP SCH (20:59)
--- NOTE | 2020-01-27 21:00 | NUR ---
INCONTINENT OF URINE /STOOL. CLEANED AND KEPT DRY. SACRAL AREA LOOKS BETTER. JUST SLIGHT REDNESS, SKIN INTACT . Z GUARD APPLIED. KEPT PEE. REPOSITIONED FOR COMFORT.
--- NOTE | 2020-01-27 21:30 | NUR ---
GLUCERNA 1.2 MARINO G TUBE FEEDING STARTED @30 ML /HR ORDERED. WILL CONTINUE TO MONITOR TOLERATION IN FEEDING.
--- NOTE | 2020-01-27 22:30 | NUR ---
MOUTH VERY DRY WITH THICK SECRETIONS THAT DRY UP AROUND THE MOUTH. CLEANSED WITH ORAL DEBRIDING AGENT SWAB.
[2020-01-27] MEDS: ACETAMINOPHEN 325 MG TAB PO PRN (23:56)
[2020-01-28] VITALS (7 sets, daily range): BP systolic 116–131; BP diastolic 60–81
[2020-01-28] MEDS: Z-GUARD PASTE TP SCH ×2 (00:35→13:30)
--- NOTE | 2020-01-28 00:56 | NUR ---
PT HAS BEEN MOANING. GIVEN PAIN MED, TYLENOL THROUGH GT. ABLE TO GET SOME SLEEP.
--- NOTE | 2020-01-28 02:00 | NUR ---
MADE ROUNDS. PT ASLEEP. NO S/S OF ANY DISCOMFORT NOTED.
--- NOTE | 2020-01-28 04:30 | NUR ---
PT HAD A SMALL SOFT BM. CLEANED AND KEPT DRY. APPLIED A FOAM DRESSING ON SACRAL /BUTTOCKS AREA.
--- NOTE | 2020-01-28 06:00 | NUR ---
HAD MORNING CARE DONE. MOUTH VERY DRY WITH SECRETIONS. CLEANSED AGAIN WITH ORAL DEBRIDING AGENT SWAB.
--- NOTE | 2020-01-28 07:15 | NUR ---
ENDORSED PT IN STABLE CONDITION TO AM NURSE.
--- NOTE | 2020-01-28 07:18 | NUR ---
RECEIVED PATIENT FROM BARN WORKER NURSE FOR CONTINUITY OF CARE. PATIENT AWAKE. NO SIGNS OF DISTRESS NOTED. RESPIRATIONS EVEN AND UNLABORED, ON ROOM AIR. MOUTH BREATHER. VISIBLE CHEST RISE AND FALL NOTED. ON TELE MONITORING. ABDOMEN SOFT AND NONTENDER. SKIN WARM, DRY, AND SURGICAL INCISION IN THE ABDOMEN NOTED WITH ABDOMINAL DRESSING. OLD GTUBE SITE COVERED WITH A 4X4 OPTIFOAM DRESSING. G-TUBE FEEDING RUNNING GLUCERNA 1.2 AT 40 ML/HR, GOAL RATE IS 50 ML/HR, WATER FLUSH IS 200ML Q6H. GASTRIC RESIDUAL 10 ML. PATIENT IS TOLERATING FEEDING. PATIENT IS INCONTINENT. ON FALL AND SZ PRECAUTIONS. BED IN LOW POSITION. BED ALARM ACTIVATED. CALL LIGHT IS WITHIN REACH. WILL CONTINUE TO MONITOR
--- NOTE | 2020-01-28 07:48 | NUR ---
DR. LAMA AND THE RESIDENT DOCTORS MADE ROUNDS
--- NOTE | 2020-01-28 08:24 | NUR ---
GIVEN MORNING MEDICATIONS VIA GT. CHANGED ABDOMINAL WOUND DRESSING AND APPLIED BACITRACIN IN THE ABDOMEN. GASTRIC RESIDUAL 10 ML. PATIENT IS TOLERATING FEEDING. BED IN LOW POSITION. CALL LIGHT IS WITHIN REACH. WILL CONTINUE TO MONITOR.
[2020-01-28] MEDS: levETIRAcetam 100 MG/ML ORASYR GT SCH ×2 (08:53→20:53)
[2020-01-28] MEDS: LACTULOSE 20 GM/30 ML UDC PO SCH (08:54)
[2020-01-28] MEDS: FAMOTIDINE 20 MG TAB GT SCH (08:54)
[2020-01-28] MEDS: DIVALPROEX SPRINKLES 125 MG CAPDR GT SCH ×2 (08:54→20:52)
[2020-01-28] MEDS ORDERED: CRUSHER, PILL MC ONE (08:57)
[2020-01-28 08:58] LABS: BASOPHILS # (AUTO) 0.1 K/uL (0.00-0.22); BASOPHILS % (AUTO) 1.1 % (0.0-2.0); EOSINOPHILS % (AUTO) 0.5 % (0.0-4.0); HEMATOCRIT 34.6 % (36-48); HEMOGLOBIN 10.8 g/dL (12.0-16.0); LYMPHOCYTES # (AUTO) 1.7 K/uL (2.5-16.5); LYMPHOCYTES % (AUTO) 20.8 % (20.5-51.1); MEAN CORPUSCULAR HEMOGLOBIN 29 pg (27-31); MEAN CORPUSCULAR HGB CONC 31 g/dL (33-37); MEAN CORPUSCULAR VOLUME 91.7 fL (80-94); MONOCYTES # (AUTO) 0.6 K/uL (0.8-1.0); NEUTROPHILS # (AUTO) 5.5 K/uL (1.8-7.7); NEUTROPHILS % (AUTO) 69.6 % (42.2-75.2); PLATELET COUNT (AUTO) 202 K/uL (140-450); RED BLOOD CELL COUNT(AUTO) 3.78 MIL/uL (4.20-5.40); WHITE BLOOD COUNT (AUTO) 7.9 K/uL (4.8-10.8)
[2020-01-28] MEDS: BACITRACIN OINT 15000 UNITS/30 GM TUBE TP SCH ×2 (09:00→21:00)
[2020-01-28] MEDS: ALGINATE DRESSING MC SCH (09:04)
[2020-01-28 09:13] LABS: ANION GAP 11.9 (8-16); CARBON DIOXIDE 31.1 mmol/L (21-32); CREATININE 0.8 mg/dL (0.6-1.3)
--- NOTE | 2020-01-28 11:06 | NUR ---
WOUND PICTURES TAKEN FOR DISCHARGE.
--- NOTE | 2020-01-28 11:38 | NUR ---
VS CHECKED. FLACC 0. NO SIGNS OF SOB. BED IN LOW POSITION. CALL LIGHT IS WITHIN REACH. WILL CONTINUE TO MONITOR.
[2020-01-28] MEDS: GAUZE TP SCH (13:30)
--- NOTE | 2020-01-28 13:36 | NUR ---
SWABBED PATIENT. PATIENT TOLERATED ACTIVITY WELL. WILL CONTINUE TO MONITOR.
[2020-01-28] MEDS: ACETAMINOPHEN 325 MG TAB PO PRN (13:56)
--- NOTE | 2020-01-28 13:56 | NUR ---
GIVEN TYLENOL VIA GT FOR MILD PAIN. EXPLAINED MEDICATION. BED IN LOW POSITION. CALL LIGHT IS WITHIN REACH. WILL CONTINUE TO MONITOR.
--- NOTE | 2020-01-28 13:57 | NUR ---
01/28/20 RD FOLLOW UP COMPLETED PLEASE REFER TO NUTRITION ASSESSMENT UNDER CARE ACTIVITY FOR ESTIMATED NUTRITIONAL NEEDS. 1. CONTINUE GLUCERNA 1.2 @ 50 ML/HR X 24 HR -THIS WILL PROVIDE 1440 CALORIES AND 72 GM PROTEIN WHICH MEETS 100% OF ESTIMATED NEEDS 2. RD TO FOLLOW-UP IN 2-3 DAYS PATIENT IS HIGH RISK. DALJIT MONGE RD
[2020-01-28] MEDS: POTASSIUM CHLORIDE 10 MEQ in DEXTROSE 5% 1,000 ML IV SCH (14:06)
--- NOTE | 2020-01-28 14:19 | NUR ---
PATIENT WILL BE TRANSFERRED TO [facility] ROOM 23A, DR. SHIRAZ PAREDES WILL BE THE RECEIVING DOCTOR.
--- NOTE | 2020-01-28 14:56 | NUR ---
PER CM, TRANSPORT WILL BE AT 6:30PM [facility]
--- NOTE | 2020-01-28 14:56 | NUR ---
PAIN REASSESSED. FLACC 0. ASLEEP. WILL CONTINUE TO MONITOR.
[2020-01-28] MEDS ORDERED: BUMETANIDE 1 MG/4 ML VIAL IV SCH (15:00)
--- NOTE | 2020-01-28 15:16 | NUR ---
GIVEN BUMEX IVP. BP IS 119/71, HR 71. EXPLAINED MEDICATION. BED IN LOW POSITION. CALL LIGHT IS WITHIN REACH. WILL CONTINUE TO MONITOR.
--- NOTE | 2020-01-28 16:28 | NUR ---
PER CM GENNA, PATIENT WILL BE IN ROOM 51A IN [facility] INSTEAD OF 23A.
--- NOTE | 2020-01-28 16:45 | NUR ---
GIVEN REPORT TO LEO BRASWELL AT [facility] [place]. PATIENT IS GOING TO BE IN ROOM 51A. INFORMED THAT PATIENT NEEDS CONTINUOUS WATER FLUSHES 150 Q6H THROUGH GTUBE, F/U WITH SURGEON AT [facility], REPEAT LABS, CBC, BMP, AND F/U WITH DR. DERECK CAMPOS, TRUCK DRIVER HEAVY. GIVEN LAST SET OF VS AND LABS. NO FURTHER QUESTIONS ASKED. GIVEN [facility] PHONE NUMBER JUST IN CASE SHE HAS ANY OTHER QUESTIONS.
--- NOTE | 2020-01-28 17:01 | NUR ---
PATIENT IS SLEEPING AT THIS TIME. NO SIGNS OF DISTRESS NOTED. BED IN LOW POSITION. CALL LIGHT IS WITHIN REACH. WILL CONTINUE TO MONITOR.
--- NOTE | 2020-01-28 18:24 | NUR ---
DISCONTINUED TWO IV SITES. MINIMAL BLEEDING. COVERED WITH 2X2 AND TAPED. AWAITING [facility] GEOPHYSICAL E LOGGER
--- NOTE | 2020-01-28 19:03 | NUR ---
ENDORSED PATIENT TO THE WAFER SUBSTRATE TESTER NURSE FOR CONTINUITY OF CARE. PATIENT IS IN STABLE CONDITION.
--- NOTE | 2020-01-28 19:10 | NUR ---
RECEIVED PT IN STABLE CONDITION FROM AM NURSE. PT IS AWAKE,ALERT AND ORIENTED X1-2. FOR DC TO [facility] . IV ACCESS REMOVED ALREADY BY AM NURSE. BUT GT FEEDING STILL INFUSING WELL. WILL WAIT FOR HELMET BINDER BY [facility].
--- NOTE | 2020-01-28 20:30 | NUR ---
PT STILL HERE. REPOSITIONED FOR COMFORT.
[2020-01-28] MEDS: SIMVASTATIN 20 MG TAB GT SCH (20:53)
[2020-01-28] MEDS: LATANOPROST 0.005% OP 2.5 ML BTL OP SCH (21:01)
--- NOTE | 2020-01-28 21:30 | NUR ---
CALLED [facility], ABLE TO TALK TO LEO FU WHO IS GOING TO TAKE CARE OF PT. MADE HER AWARE THAT THERE WILL BE DELAY ON TRANSPORTING PT .
--- NOTE | 2020-01-28 21:50 | NUR ---
DR. ZAMORA MADE AWARE THAT [facility] WILL CUSTOMER PROGRAM MANAGER PT AT 060O TOMORROW. HE SAID ITS OK.
--- NOTE | 2020-01-28 22:38 | NUR ---
[facility] FROM [place] THERE WILL BE CHANGED IN SUPERINTENDENT OPERATIONS DIVISION TIME ON PT. INSTEAD OF 0600 WILL BE 0700.
[2020-01-29] VITALS: BP 130/73
--- NOTE | 2020-01-29 00:30 | NUR ---
REPOSITIONED FOR COMFORT. MOUTH CARE DONE.
[2020-01-29] MEDS: Z-GUARD PASTE TP SCH (01:59)
--- NOTE | 2020-01-29 03:20 | NUR ---
MADE ROUNDS. PT AWAKE. VITAL SIGNS STABLE.
[2020-01-29 03:45] VITALS: BP 122/59
--- NOTE | 2020-01-29 05:00 | NUR ---
INCONTINENT OF URINE. CLEANED AND KEPT DRY. APPLIED Z GUARD AND COVERED WITH OPTIFOAM DRESSING.
--- NOTE | 2020-01-29 06:43 | NUR ---
CALLED [facility]. FOLLOW UP REFINERY OPERATOR CRUDE UNIT OF PT. HE SAID AT 0700.
--- NOTE | 2020-01-29 06:45 | NUR ---
CALLED BARBARA HOBBS RN CM AND LEFT MESSAGE FOR HER TO GET NEW AUTH.#FOR TRANSPORT W/[facility].DUE TO REARRANGE FOR FLIGHT COMMUNICATIONS OFFICER W/THEM.
--- NOTE | 2020-01-29 06:49 | NUR ---
THE # LEFT MESSAGE FOR BARBARA =[phone]
--- NOTE | 2020-01-29 07:13 | NUR ---
ENDORSED PT IN STABLE CONDITION TO AM NURSE FOR CONTINUITY OF CARE.
--- NOTE | 2020-01-29 07:15 | NUR ---
RECEIVED BEDSIDE REPORT FROM RN TELEPHONIC NURSE SYDNEE FOR CONTINUITY OF CARE. PT IS AWAKE AND RESTING ON BED AT THIS TIME. PT IS AAOX1 TO NAME. RESPIRATION EVEN AND UNLABORED ON RA. FLACC 0. NO SIGNS OF DISTRESS NOTED. NO IV ACCESS. DRESSING ON ABDOMEN AND SACRAL NOTED, CLEAN AND DRY. G-TUBE IN L UPPER QUADRANT, NOT INFUSING THIS TIME. PT IS INCONTINENT AND BEDBOUND. TELE MONITOR ATTACHED. SAFETY MEASURES IN PLACE. BED IN LOW POSITION AND CALL LIGHT WITHIN REACH. AWAITING FOR [facility] TO AR[place] [facility] [place]
[2020-01-29 07:36] LABS: BASOPHILS # (AUTO) 0.1 K/uL (0.00-0.22); HEMATOCRIT 35.8 % (36-48); HEMOGLOBIN 11.2 g/dL (12.0-16.0); LYMPHOCYTES # (AUTO) 1.8 K/uL (2.5-16.5); LYMPHOCYTES % (AUTO) 22.8 % (20.5-51.1); MEAN CORPUSCULAR HEMOGLOBIN 29 pg (27-31); MEAN CORPUSCULAR HGB CONC 31 g/dL (33-37); MEAN CORPUSCULAR VOLUME 91.6 fL (80-94); MONOCYTES # (AUTO) 0.6 K/uL (0.8-1.0); MONOCYTES % (AUTO) 7.1 % (1.7-9.3); NEUTROPHILS # (AUTO) 5.5 K/uL (1.8-7.7); NEUTROPHILS % (AUTO) 69.1 % (42.2-75.2); PLATELET COUNT (AUTO) 190 K/uL (140-450); RED BLOOD CELL COUNT(AUTO) 3.91 MIL/uL (4.20-5.40); RED CELL DISTRIBUTION WIDTH 19.8 % (11.6-13.7)
[2020-01-29 07:55] VITALS: BP 125/65
--- NOTE | 2020-01-29 07:55 | NUR ---
DISCHARGE INSTRUCTION PROVIDED TO PATIENT AT BEDSIDE. EDUCATED PT ON DISEASE MANAGEMENT, MEDICATIONS REGIMEN AND SIDE EFFECTS, SKIN CARE, REINFORCEMENT NEEDED DUE TO MENTAL STATUS. REMOVED TELE MONITOR BOX AND ID BAND. PROVIDED DISCHARGE PACKAGES TO [facility] PERSONNEL. [facility] ASSISTED TO BRING PT'S TWO PILLOWS BACK TO [facility] [place]. PT IS GOING TO DC AT THIS TIME ACCOMPANY BY [facility] PERSONNEL. PT IS IN STABLE CONDITION.
[2020-01-29 08:09] LABS: ANION GAP 13.2 (8-16); CREATININE 0.9 mg/dL (0.6-1.3); POTASSIUM 5.2 mmol/L (3.5-5.1)
--- NOTE | 2020-01-29 09:11 | NUR ---
MD INPUT NEW ADDITIONAL ORDER, [place] [facility] [facility], EXPLAINED THAT AFTER TRANSFER, MD HAS INPUT NEW DC INSTRUCTION FOR FOLLOW UP WITH SPECIALIST, AND [facility]IEGO WAS AWARE. OBTAINED FAX # [phone] FROM [facility] AND WILL [place] [facility] [place]
--- NOTE | 2020-01-29 09:18 | NUR ---
FAX WENT THROUGH SUCCESSFULLY. KEPT COPY OF RECORD WITH PT'S CHART.
== END 2020-01-29 07:55 | DRG 871 ==
LOC: MED 13:46 → MTU 16:07
PROVIDERS: ADMIT General Practice; ATTEND General Practice
PROC: 0D20XUZ Change Feeding Device in Upper Intestinal Tract, External Approach (ICD-10-PCS; principal; 2020-01-25 10:25)
DX: A41.9 Sepsis, unspecified organism (principal); E43 Unspecified severe protein-calorie malnutrition; R53.2 Functional quadriplegia; K94.23 Gastrostomy malfunction; E87.1 Hypo-osmolality and hyponatremia; Y83.3 Surgical operation with formation of external stoma as the cause of abnormal reaction of the patient, or of later complication, without mention of misadventure at the time of the procedure; E03.9 Hypothyroidism, unspecified; E78.5 Hyperlipidemia, unspecified; F03.90 Unspecified dementia, unspecified severity, without behavioral disturbance, psychotic disturbance, mood disturbance, and anxiety; F79 Unspecified intellectual disabilities; G40.909 Epilepsy, unspecified, not intractable, without status epilepticus; K21.9 Gastro-esophageal reflux disease without esophagitis; R62.7 Adult failure to thrive; D64.9 Anemia, unspecified; R33.9 Retention of urine, unspecified; K59.00 Constipation, unspecified; K11.7 Disturbances of salivary secretion; R62.50 Unspecified lack of expected normal physiological development in childhood; Z68.29 Body mass index [BMI] 29.0-29.9, adult; Z79.899 Other long term (current) drug therapy
CPT/HCPCS: 36415; 71045; 74150; 80048; 80053; 80305; 81001; 82150; 83036; 83605; 83690; 83735; 83880; 84100; 84300; 84439; 84443; 84484; 85025; 85610; 85730; 87040; 87070; 87075; 87081; 87086; 87186; 87205; 99284; A4649; C1758; C9113; J0696; J1953; J2250; J2270; J3010; J3480; J3490; J7030; J7060; Q0092

== ENCOUNTER 2020-02-26 16:37 | Inpatient (IN) | payer OTHER, MEDICAID, SELFPAY ==
[~2020-02-26] VITALS: Ht 167.6 cm; Wt 90.7 kg
[2020-02-26 16:37] VITALS: BP 127/81
[~2020-02-26 16:37] MED LIST changes: -ACET-6842 PO; -ASPI81CT95 PO; +ATI.5 GT; -BISA-188 PO; +CALC-1214 GT; +CRAN400T5 GT; -D50SYR IVP; -DIVA250E1 PO; +DIVA250T GT; +DOCU-299 GT; +FAMO-90 GT; +FLONAS NS; -GLUC-805 FS; -HUMSLIDE SUBQ; -HYDR-5122 PO; -LACT10CA PO; +LACT10SO1 PO; -LORA-476 PO; -LOSA25TA1 PO; -MERO500V13 IV; -MOM PO; -PANT40EC PO; +SIMV20TA1 GT; -SIMV20TA1 PO; +TAMS0.4C96 GT; -TAMS0.4C96 PO; -TOP100 PO; +XALOS OP
--- NOTE | 2020-02-26 16:37 | NUR ---
Patient BIBA ALS from [facility] [place], transferred to bed 9. RN evaluating patient at bedside.
[2020-02-26] MEDS ORDERED: NACL 0.9% 1,000 ML IV SCH (16:38)
[2020-02-26] MEDS ORDERED: cefTRIAXone 1,000 MG in DEXT 5% MINI-BAG PLUS 50 ML IV ONE (16:40)
--- NOTE | 2020-02-26 16:40 | NUR ---
69 Y/O FEMALE BIBA FROM [facility] [place] FOR C/O COUGH, VOMITING, AND DIARRHEA FOR UNKNOWN AMOUNT OF DAYS. PRESENTS WITH MOIST, PRODUCTIVE COUGH. RR DEEP AND TACHYPNIC. PT PRESENTS WITH GREEN LOOSE STOOLS WITH FOUL SMELL. ABD SOFT, ROUND, NONTENDER TO PALP. PLACED ON FORMING TUBE SELECTOR, PULSE OX, AND BP CUFF PLACED.
[2020-02-26] MEDS ORDERED: cefTRIAXone 1,000 MG VIAL ONE (16:44)
--- NOTE | 2020-02-26 17:02 | NUR ---
Dr. Queen is evaluating the patient at bedside.
[2020-02-26 17:07] LABS: BASOPHILS % (AUTO) 0.2 % (0.0-2.0); EOSINOPHILS % (AUTO) 0.1 % (0.0-4.0); HEMOGLOBIN 13.9 g/dL (12.0-16.0); LYMPHOCYTES # (AUTO) 0.7 K/uL (2.5-16.5); LYMPHOCYTES % (AUTO) 5.8 % (20.5-51.1); MEAN CORPUSCULAR HEMOGLOBIN 29 pg (27-31); MEAN CORPUSCULAR HGB CONC 32 g/dL (33-37); MEAN CORPUSCULAR VOLUME 91.5 fL (80-94); MONOCYTES # (AUTO) 0.3 K/uL (0.8-1.0); MONOCYTES % (AUTO) 2.6 % (1.7-9.3); NEUTROPHILS # (AUTO) 10.7 K/uL (1.8-7.7); NEUTROPHILS % (AUTO) 91.3 % (42.2-75.2); PLATELET COUNT (AUTO) 366 K/uL (140-450); RED CELL DISTRIBUTION WIDTH 18.9 % (11.6-13.7); WHITE BLOOD COUNT (AUTO) 11.7 K/uL (4.8-10.8)
[2020-02-26] MEDS ORDERED: ASCO500T45 GT (17:21)
[2020-02-26] MEDS ORDERED: ZINC220C28 PO (17:21)
[2020-02-26] MEDS ORDERED: KEP500L GT (17:21)
[2020-02-26] MEDS ORDERED: VALP-22 GT (17:21)
[2020-02-26] MEDS ORDERED: NUTR887L11 PO (17:21)
--- NOTE | 2020-02-26 17:22 | NUR ---
STOOL SAMPLE COLLECTED FROM PT. SENT TO LAB.
[2020-02-26 17:24] LABS: ALBUMIN 3.2 g/dL (3.4-5.0); ANION GAP 17.5 (8-16); CARBON DIOXIDE 24.4 mmol/L (21-32); CREATININE 1.2 mg/dL (0.6-1.3); POTASSIUM 3.9 mmol/L (3.5-5.1); TOTAL BILIRUBIN 0.4 mg/dL (0.0-1.0)
--- NOTE | 2020-02-26 17:25 | NUR ---
MARROQUIN CATHETER PLACED AT THIS TIME. 10ML CLOUDY URINE COLLECTED.
--- NOTE | 2020-02-26 17:30 | NUR ---
COVID-19 SWAB COLLECTED FROM PT
--- NOTE | 2020-02-26 17:33 | NUR ---
CRITICAL LAB RESULT FROM [facility] OF 4.[address] MAURICE[address]
[2020-02-26] MEDS ORDERED: NACL 0.9% 1,000 ML IV ONE ×2 (17:35→18:05)
--- NOTE | 2020-02-26 17:48 | NUR ---
SPOKE TO PTS POWER OF NC MANAGER, JOHANA HAWKINS. CALL FOR UPDATES: [phone]
--- NOTE | 2020-02-26 18:03 | NUR ---
X-RAY AT BEDSIDE
--- NOTE | 2020-02-26 18:11 | NUR ---
PT RESTING WITH EYES OPEN, POSITIONED FOR COMFORT. HOB ELEVATED, BED LOCKED AND IN LOW POSITION, X 2 SIDE RAILS RAISED. WILL CONTINUE TO MONITOR
[2020-02-26 18:41] LABS: APPEARANCE,URINE SL CLOUDY (CLEAR); BILIRUBIN,URINE NEGATIVE (NEGATIVE); BLOOD, URINE 3+ (NEGATIVE); COLOR,URINE YELLOW (YELLOW); LEUKOCYTE ESTERASE ,URINE 2+ (NEGATIVE); NITRITE, URINE NEGATIVE (NEGATIVE); UGLUCOSE NEGATIVE (NEGATIVE)
[2020-02-26 18:58] LABS: RBC,URINE 11-20 (MOD) /HPF (0-5); WBC,URINE 16-25 (MOD) /HPF (0-5)
--- NOTE | 2020-02-26 19:06 | NUR ---
Pt report given to LEO TAVERAS. Transfer of care at this time.
--- NOTE | 2020-02-26 19:10 | NUR ---
REPORT RECIEVED BY LEO ESTRELLAFILM BOOKER OF CARE AT THIS TIME.
[2020-02-26] MEDS ORDERED: ONDANSETRON 4 MG/2 ML VIAL IVP PRN (19:35)
[2020-02-26] MEDS ORDERED: ACETAMINOPHEN 325 MG TAB PO PRN (19:35)
--- NOTE | 2020-02-26 20:00 | NUR ---
CALLED ADMITTING RESIDENT TO MAKE AWARE OF DECLINING BLOOD PRESSURE OF 84/51 AFTER THIRD BOLUS FINISHED INFUSING. DOCTOR SAID HE IS ON THIS WAY.
[2020-02-26] MEDS: DEXT 5% /NACL 0.9% 1,000 ML IV SCH (21:22)
[2020-02-26 21:30] VITALS: BP_SYST 113; BP_SYST 115; BP_DIAS 51
--- NOTE | 2020-02-26 21:30 | NUR ---
Patient will be admitted to care of [facility]. Admited to TELE. Will go to room 130 A. Belongings list completed. Report to LEO BREWER.
--- NOTE | 2020-02-26 21:30 | NUR ---
RECEIVED PT FROM ER NURSE. PT CAME IN [facility]. PT AAOX0, NO SOB NOTED, BREATHING, EVEN AND UNLABORED WITH NON BREATH MASK, 10L. IV SITE ON RAC 20G, PATENT, INTACT AND ASYMPTOMATIC. SACRAL WOUND NOTED, SKIN TEAR NOTED ON LFA, RH, PHOTO TAKEN. DX: SEPSIS, UTI, ENHANCED PRECAUTION IN PLACE FOR R/O COVID19, CONTACT PRECAUTION IN PLACE FOR R/O C.DIFF. FALL PRECAUTION IN PLACE. BED IN LOW POSITION, WILL CONTINUE TO MONITOR.
[2020-02-26] MEDS: DOCUSATE SODIUM 100 MG GELCAP PO SCH ×2 (21:36→21:40)
[2020-02-26] MEDS: metroNIDAZOLE 500 MG/NS PREMIX 100 ML IV SCH (21:36)
--- NOTE | 2020-02-26 21:40 | NUR ---
GIVEN HEPARIN AND FLAGYL MD ORDERED. PT TOLERATED WELL. HELD COLACE D/T DIARRHEA.
[2020-02-26 21:54] LABS: AMYLASE 58 U/L (25-115); CHOL/HDL RATIO 5.4 (1-4.5); HDL CHOLESTEROL 25 mg/dL (40-60); LDL (CALC) 51 mg/dL (60-100); LIPASE 173 U/L (73-393); PHOSPHORUS 4.6 mg/dL (2.5-4.9); THYROID STIMULATING HORMONE < 0.01 uIU/mL (0.34-3.74); TRIGLYCERIDES 304 mg/dL (30-150)
[2020-02-26 21:56] LABS: PROTHROMBIN TIME 9.8 secs (10.8-13.4)
[2020-02-26] MEDS ORDERED: LORazepam 2 MG/ML VIAL IM/IVP PRN (23:00)
[2020-02-26] MEDS ORDERED: Z-GUARD PASTE TP ONE (23:59)
[2020-02-27] VITALS: BP 118/58
[2020-02-27] MEDS: VANCOMYCIN 1,000 MG VIAL GT SCH ×4 (00:03→18:18)
--- NOTE | 2020-02-27 00:03 | NUR ---
GIVEN VANCOMYCIN MD ORDERED. APPLIED Z-GUARD AND OPTIFORM DRESS ON SACRAL AREA. APPLIED DRESSING ON SKIN TEAR ON RH, LFA, AND CHEST. PT TOLERATED WELL. Addendum: 02/27/20 at 0044 by Arin Peguero RN APPLIED DRESSING ON SKIN TEAR ON RH, LFA, AND ABD*
[2020-02-27] MEDS: HYDROcodone/APAP 7.5/325 MG 1 TAB PO PRN ×2 (00:58→05:06)
--- NOTE | 2020-02-27 00:58 | NUR ---
PT MOANING, GUARDING. FLACC-1 NOTED. GIVEN NORCO MD ORDERED. PT TOLERATED WELL.
--- NOTE | 2020-02-27 02:50 | NUR ---
PT KEPT TAKING OXYGEN MASK OFF. O2SAT DECREASED TO 78-82%. REPORTED TO AND RECEIVED RESTRAIN ORDERED. APPLIED SOFT WRIST RESTRAINT. PT TOLERATED WELL.
[2020-02-27 04:00] VITALS: BP 128/68
[2020-02-27] MEDS: metroNIDAZOLE 500 MG/NS PREMIX 100 ML IV SCH ×2 (05:04→13:03)
--- NOTE | 2020-02-27 05:04 | NUR ---
GIVEN FLAGYL AND VANCOMYCIN MD ORDERED. PT TOLERATED WELL.
--- NOTE | 2020-02-27 06:55 | NUR ---
PT IN STABLE CONDITION. WILL ENDORSE TO DAY SHIFT NURSE FOR CONTINUOUS CARE.
[2020-02-27] MEDS: DEXT 5% /NACL 0.9% 1,000 ML IV SCH (07:00)
--- NOTE | 2020-02-27 07:21 | NUR ---
RECEIVED BEDSIDE SHIFT REPORT FROM LAW OFFICE ASSISTANT NURSE FOR CONTINUATION OF CARE.
[2020-02-27 08:00] VITALS: BP 123/72
[2020-02-27] MEDS ORDERED: PROTEIN HYDROLYS PO SCH (09:00)
[2020-02-27] MEDS ORDERED: AMINO ACIDS PO SCH (09:00)
[2020-02-27] MEDS ORDERED: NON-FORMULARY ITEM (Lactulose 15 ML) PO SCH (09:00)
[2020-02-27] MEDS ORDERED: CRANBERRY FRUIT 400 MG GT SCH (09:00)
[2020-02-27 09:19] LABS: BASOPHILS % (AUTO) 0.2 % (0.0-2.0); HEMATOCRIT 31.2 % (36-48); HEMOGLOBIN 9.9 g/dL (12.0-16.0); LYMPHOCYTES # (AUTO) 0.8 K/uL (2.5-16.5); LYMPHOCYTES % (AUTO) 7.5 % (20.5-51.1); MEAN CORPUSCULAR HEMOGLOBIN 29 pg (27-31); MEAN CORPUSCULAR HGB CONC 32 g/dL (33-37); MEAN CORPUSCULAR VOLUME 91.7 fL (80-94); MONOCYTES # (AUTO) 0.7 K/uL (0.8-1.0); MONOCYTES % (AUTO) 7.2 % (1.7-9.3); NEUTROPHILS # (AUTO) 8.5 K/uL (1.8-7.7); NEUTROPHILS % (AUTO) 85.1 % (42.2-75.2); PLATELET COUNT (AUTO) 206 K/uL (140-450); RED CELL DISTRIBUTION WIDTH 19.1 % (11.6-13.7)
[2020-02-27 09:36] LABS: CREATININE 0.9 mg/dL (0.6-1.3)
--- NOTE | 2020-02-27 09:48 | NUR ---
PATIENT HAS BEEN SCREENED AND CATEGORIZED HIGH NUTRITION RISK. PATIENT WILL BE SEEN WITHIN 1-2 DAYS OF ADMISSION. 02/27/2020-02/28/[address]
[2020-02-27 09:52] LABS: ANION GAP 13.6 (8-16); POTASSIUM 3.6 mmol/L (3.5-5.1)
--- NOTE | 2020-02-27 10:00 | NUR ---
TOLERATED MEDICATIONS THROUGH THE G-TUBE. NON-REBREATHER MASKED CHANGED TO OXIMIZER AT 8L. SPO2 100%. WILL CONTINUE TO MONITOR.
[2020-02-27 10:52] LABS: MAGNESIUM 1.8 mg/dL (1.8-2.4); PHOSPHORUS 3.1 mg/dL (2.5-4.9)
[2020-02-27] MEDS: VALPROIC ACID 250 MG/5 ML UDC GT SCH ×2 (10:56→21:43)
[2020-02-27] MEDS: TAMSULOSIN 0.4 MG CAP GT SCH (10:56)
[2020-02-27] MEDS: levETIRAcetam 100 MG/ML ORASYR GT SCH ×2 (11:20→21:43)
[2020-02-27] MEDS: VITAMIN D 400 IU TAB PO SCH (11:20)
[2020-02-27] MEDS: FAMOTIDINE 20 MG TAB GT SCH (11:20)
[2020-02-27] MEDS: DOCUSATE SODIUM 100 MG GELCAP PO SCH ×2 (11:21→21:42)
[2020-02-27] MEDS: LACTULOSE 20 GM/30 ML UDC PO SCH (11:21)
[2020-02-27] MEDS: ZINC SULF 220 MG CAP PO SCH (11:22)
[2020-02-27] MEDS: FAMOTIDINE 20 MG TAB PO SCH (11:22)
[2020-02-27] MEDS: ASCORBIC ACID 500 MG TAB PO SCH (11:22)
[2020-02-27 12:00] VITALS: BP 118/70
--- NOTE | 2020-02-27 12:30 | NUR ---
PUMP FOR WOUND BED HOOKED UP AND RUNNING. PATIENT NON-VERBAL. SPOKE WITH SISTER WHO IS THE MEDICAL DECISION MAKER, CLARIFIED POL. WILL CONTINUE TO MONITOR.
[2020-02-27] MEDS: DEXT 5% / NACL 0.45% 1,000 ML IV SCH ×2 (13:03→22:10)
--- NOTE | 2020-02-27 15:00 | NUR ---
MEDICATION ADMINISTRATION TOLERATED WELL. TURNED PATIENT. SPO2 WNL.
[2020-02-27 16:00] VITALS: BP 122/74
--- NOTE | 2020-02-27 16:46 | NUR ---
02/27/2020 RD INITIAL ASSESSMENT COMPLETED PLEASE REFER TO NUTRITION ASSESSMENT UNDER CARE ACTIVITY FOR ESTIMATED NUTRITIONAL NEEDS. RD RECOMMENDATIONS: 1. WHEN MEDICALLY APPROPRIATE, RECOMMEND VITAL AF AT 65 ML/HR + 250 ML FREE WATER FLUSH Q6H, WHICH PROVIDES 1560 ML TOTAL VOLUME, 1872 KCAL, 117 GM OF PROTEIN, AND 2255 ML OF FREE WATER - START AT 25 ML/HR AND ADVANCE TOLERATED TO GOAL RATE OF 65 ML/HR. 2. RD WILL F/U 2-3 DAYS; HIGH RISK. CAROLYNN PALOMARES, RD
--- NOTE | 2020-02-27 17:00 | NUR ---
TOLERATED MED PASS, SKIN INTACT, WILL CONTINUE TO MONITOR.
--- NOTE | 2020-02-27 19:30 | NUR ---
BEDSIDE SHIFT REPORT GIVEN TO AREA MECHANIC NURSE FOR CONTINUATION OF CARE.
--- NOTE | 2020-02-27 19:32 | NUR ---
RECEIVED BEDSIDE REPORT FROM AM SHIFT NURSE. PATIENT IS LYING IN BED AWAKE AND ALERT. NO SOB OR DISTRESS NOTED ON 6LPM VIA OXIMIZER. IV ACCESS ON RIGHT AC 20 GAUGE, PATENT, INTACT AND INFUSING WELL. INITIAL ASSESSMENT DONE NOTED WITH LEFT FOREARM AND RIGHT HAND SKIN TEAR. MARROQUIN CATHETER IN PLACE, DRAINING LIGHT YELLOW COLORED URINE. BILATERAL RESTRAINTS NOTED, NO INJURY OR SKIN BREAKDOWN. G-TUBE IN PLACE. CALL LIGHT WITHIN PATIENT REACH. WILL CONTINUE TO MONITOR PATIENT.
[2020-02-27 20:30] VITALS: BP 104/49
[2020-02-27] MEDS: SIMVASTATIN 20 MG TAB GT SCH (21:43)
[2020-02-27] MEDS ORDERED: CRUSHER, PILL MC ONE (22:01)
--- NOTE | 2020-02-27 22:20 | NUR ---
ROUNDS DONE. PATIENT RESTING WITH EYES CLOSED. NO DISTRESS NOTED. WILL CONTINUE TO MONITOR PATIENT.
[2020-02-28 00:30] VITALS: BP 107/47
--- NOTE | 2020-02-28 00:30 | NUR ---
VITALS DONE. NO DISTRESS NOTED. CALL LIGHT WITHIN PATIENT REACH. WILL CONTINUE TO MONITOR PATIENT.
--- NOTE | 2020-02-28 01:43 | NUR ---
ROUNDS DONE. PATIENT RESTING WITH EYES CLOSED. NO SOB OR DISTRESS NOTED. VISIBLE CHEST RISE AND FALL NOTED. WILL CONTINUE TO MONITOR PATIENT.
[2020-02-28] MEDS: DEXT 5% / NACL 0.45% 1,000 ML IV SCH ×2 (02:15→18:27)
[2020-02-28 04:30] VITALS: BP 116/47
--- NOTE | 2020-02-28 04:30 | NUR ---
VITALS DONE. VISIBLE CHEST RISE AND FALL NOTED. WILL CONTINUE TO MONITOR PATIENT.
--- NOTE | 2020-02-28 07:24 | NUR ---
ENDORSED TO AM SHIFT NURSE FOR CONTINUITY OF CARE. PATIENT IN STABLE CONDITION.
--- NOTE | 2020-02-28 07:25 | NUR ---
RECEIVED BEDSIDE REPORT FROM BINGO USHER NURSE. PATIENT IS LYING IN BED AWAKE AND ALERT. NO SOB OR DISTRESS NOTED ON 6LPM VIA OXIMIZER. IV ACCESS ON RIGHT AC 20 GAUGE, PATENT, INTACT AND INFUSING WELL. INITIAL ASSESSMENT DONE NOTED WITH LEFT FOREARM AND RIGHT HAND SKIN TEAR. MARROQUIN CATHETER IN PLACE, DRAINING LIGHT YELLOW COLORED URINE. BILATERAL RESTRAINTS NOTED, NO INJURY OR SKIN BREAKDOWN. G-TUBE IN PLACE, CLAMPED. PT NEGATIVE FOR COVID, SAFETY PRECAUTIONS IN PLACE,CALL LIGHT WITHIN PATIENT REACH. WILL CONTINUE TO MONITOR PATIENT.
[2020-02-28 08:00] VITALS: BP 120/57
[2020-02-28] MEDS: ASCORBIC ACID 500 MG TAB PO SCH (08:38)
[2020-02-28] MEDS: VITAMIN D 400 IU TAB PO SCH (08:38)
[2020-02-28] MEDS: levETIRAcetam 100 MG/ML ORASYR GT SCH ×2 (08:38→20:17)
[2020-02-28] MEDS: ZINC SULF 220 MG CAP PO SCH (08:38)
[2020-02-28] MEDS: VALPROIC ACID 250 MG/5 ML UDC GT SCH ×2 (08:38→20:17)
[2020-02-28] MEDS: FAMOTIDINE 20 MG TAB GT SCH (08:38)
[2020-02-28] MEDS: TAMSULOSIN 0.4 MG CAP GT SCH (08:38)
[2020-02-28] MEDS: LACTULOSE 20 GM/30 ML UDC PO SCH (08:38)
--- NOTE | 2020-02-28 08:38 | NUR ---
GTUBE AUSCULTATED FOR PLACEMENT, 0 ML OF RESIDUAL NOTED. ORDERED MEDICATIONS GIVEN VIA GTUBE WITH 180ML OF WATER. PATIENT TOLERATED IT. WILL CONTINUE TO MONITOR PATIENT.
[2020-02-28 08:56] LABS: BASOPHILS % (AUTO) 0.5 % (0.0-2.0); EOSINOPHILS % (AUTO) 0.1 % (0.0-4.0); HEMATOCRIT 31.8 % (36-48); HEMOGLOBIN 9.9 g/dL (12.0-16.0); LYMPHOCYTES % (AUTO) 13.2 % (20.5-51.1); MEAN CORPUSCULAR HEMOGLOBIN 29 pg (27-31); MEAN CORPUSCULAR HGB CONC 31 g/dL (33-37); MEAN CORPUSCULAR VOLUME 92.3 fL (80-94); MONOCYTES # (AUTO) 0.6 K/uL (0.8-1.0); MONOCYTES % (AUTO) 7.1 % (1.7-9.3); NEUTROPHILS # (AUTO) 6.2 K/uL (1.8-7.7); NEUTROPHILS % (AUTO) 79.1 % (42.2-75.2); PLATELET COUNT (AUTO) 225 K/uL (140-450); RED BLOOD CELL COUNT(AUTO) 3.45 MIL/uL (4.20-5.40); RED CELL DISTRIBUTION WIDTH 18.4 % (11.6-13.7); WHITE BLOOD COUNT (AUTO) 7.9 K/uL (4.8-10.8)
[2020-02-28] MEDS: DOCUSATE SODIUM 100 MG GELCAP PO SCH ×2 (09:00→20:19)
[2020-02-28] MEDS ORDERED: PHARMACY COMMENTS MC SCH (09:00)
[2020-02-28] MEDS: FAMOTIDINE 20 MG TAB PO SCH (09:00)
[2020-02-28 09:38] LABS: ANION GAP 11.7 (8-16); CARBON DIOXIDE 28.6 mmol/L (21-32); CREATININE 0.7 mg/dL (0.6-1.3); POTASSIUM 3.3 mmol/L (3.5-5.1)
[2020-02-28 09:49] LABS: MAGNESIUM 1.7 mg/dL (1.8-2.4); PHOSPHORUS 2.5 mg/dL (2.5-4.9)
--- NOTE | 2020-02-28 10:10 | NUR ---
INITIAL TUBE FEEDING STARTED, 0 ML OF RESIDUAL NOTED, PATIENT TOLERATING IT. WILL CONTINUE TO MONITOR PATIENT.
[2020-02-28] MEDS ORDERED: MAG SULF 2000 MG/WATER PREMIX 50 ML IV SCH (11:00)
--- NOTE | 2020-02-28 12:30 | NUR ---
RECEIVED CALL FROM LAB ABOUT CRITICAL, MARINO 6.8, K 2.8M BUN 12.5. WHEN REFERRED TO LAB PAGE, K 3.1, NO PENDING CALCIUM, BUN 12. CALLED LAB TO VERIFY NUMBERS. ONCE CRITICALS ARE VERIFIED, WILL INFORM .
[2020-02-28] MEDS ORDERED: POTASSIUM CHLORIDE 40 MEQ, LIDOCAINE MPF 1% 25 MG in NACL 0.9% 250 ML IV SCH (13:30)
[2020-02-28 14:22] LABS: ANION GAP 15.9 (8-16); CARBON DIOXIDE 24.2 mmol/L (21-32); CREATININE 0.8 mg/dL (0.6-1.3)
[2020-02-28 14:29] LABS: POTASSIUM 3.1 mmol/L (3.5-5.1)
[2020-02-28 16:00] VITALS: BP 147/73
[2020-02-28] MEDS ORDERED: KCL 20 MEQ/WATER INJ PREMIX 100 ML IV SCH (18:00)
--- NOTE | 2020-02-28 18:30 | NUR ---
1800 K-RIDER NOT GIVEN AT THIS TIME, PATIENT CURRENTLY RUNNING ROCEPHIN. WILL GIVE ONCE IV ANTIBIOTICS IS DONE.
--- NOTE | 2020-02-28 19:35 | NUR ---
REPORT GIVEN TO COAL SAMPLE TESTER NURSE AT BEDSIDE FOR CONTINUITY OF CARE.
--- NOTE | 2020-02-28 19:36 | NUR ---
RECEIVED BEDSIDE REPORT FROM AM SHIFT NURSE, ELISHA PATIENT IS SITTING HIGH BACK REST, AWAKE AND ALERT. NO SOB OR DISTRESS NOTED ON ROOM AIR. IV ACCESS ON RIGHT AC 20 GAUGE, PATENT, INTACT AND INFUSING WELL. INITIAL ASSESSMENT DONE NOTED WITH LEFT FOREARM AND RIGHT HAND SKIN TEAR. MARROQUIN CATHETER IN PLACE, DRAINING LIGHT YELLOW COLORED URINE. BILATERAL RESTRAINTS NOTED, NO INJURY OR SKIN BREAKDOWN DUE TO THE RESTRAINTS, NONE NOTED. G-TUBE IN PLACE. CALL LIGHT WITHIN PATIENT REACH. WILL CONTINUE TO MONITOR PATIENT.
--- NOTE | 2020-02-28 19:53 | NUR ---
KCL WILL BE GIVEN PER ENDORSEMENT, 20 MEQ'S
[2020-02-28] MEDS: SIMVASTATIN 20 MG TAB GT SCH (20:19)
--- NOTE | 2020-02-28 20:44 | NUR ---
PATIENT SEEN AND ASSESSED. PATIENT FOUND 1L NASAL CANNULA WITH SPO2 OF 96%. PATIENT IS IN NO RESPIRATORY DISTRESS AT THIS TIME. AUSCULTATION REVEALS BILATERAL RALES BREATH SOUNDS. WILL CONTINUE TO MONITOR PATIENT.
[2020-02-29] VITALS: BP 150/75
--- NOTE | 2020-02-29 00:30 | NUR ---
PATIENT MUMBLING TO HERSELF, BUT STOPS , PT SAYING "AW:, BUT CHECKED ON THE PATIENTS IV SITE, INTACT, NO SWELLING NO INFILTRATION NOTED ON NEW IV SITE
--- NOTE | 2020-02-29 01:00 | NUR ---
WOUND CARE , AND WOUND PHOTO DONE
--- NOTE | 2020-02-29 02:45 | NUR ---
CHECKED ON PATIENT JUST SLEPT A LITTLE, PATIENT WANTED TO DRINK WATER BUT INFORMED HER THAT SHE IS NPO , WIPED HER MOUTH / LIPS WITH COLD WATER TO GIVE HER RELIEF OF DRY MOUTH
--- NOTE | 2020-02-29 04:27 | NUR ---
PATIENT SLEEPING A LITLE, BUT EASILY AWAKED, CLEANED HER AND FOF LOADED PRESSURE AREAS
[2020-02-29] MEDS: DEXT 5% / NACL 0.45% 1,000 ML IV SCH (05:43)
[2020-02-29 06:10] LABS: ANION GAP 12.2 (8-16); CARBON DIOXIDE 26.6 mmol/L (21-32); CREATININE 0.7 mg/dL (0.6-1.3); POTASSIUM 3.8 mmol/L (3.5-5.1)
[2020-02-29 06:13] LABS: BASOPHILS # (AUTO) 0.1 K/uL (0.00-0.22); BASOPHILS % (AUTO) 1.7 % (0.0-2.0); EOSINOPHILS % (AUTO) 0.2 % (0.0-4.0); HEMATOCRIT 29.9 % (36-48); HEMOGLOBIN 9.5 g/dL (12.0-16.0); LYMPHOCYTES # (AUTO) 1.1 K/uL (2.5-16.5); LYMPHOCYTES % (AUTO) 18.3 % (20.5-51.1); MEAN CORPUSCULAR HEMOGLOBIN 29 pg (27-31); MEAN CORPUSCULAR HGB CONC 32 g/dL (33-37); MEAN CORPUSCULAR VOLUME 90.9 fL (80-94); MONOCYTES # (AUTO) 0.4 K/uL (0.8-1.0); MONOCYTES % (AUTO) 6.2 % (1.7-9.3); NEUTROPHILS # (AUTO) 4.5 K/uL (1.8-7.7); NEUTROPHILS % (AUTO) 73.6 % (42.2-75.2); PLATELET COUNT (AUTO) 199 K/uL (140-450); RED BLOOD CELL COUNT(AUTO) 3.29 MIL/uL (4.20-5.40); RED CELL DISTRIBUTION WIDTH 18.2 % (11.6-13.7); WHITE BLOOD COUNT (AUTO) 6.1 K/uL (4.8-10.8)
[2020-02-29 06:18] LABS: MAGNESIUM 2.1 mg/dL (1.8-2.4); PHOSPHORUS 2.4 mg/dL (2.5-4.9)
--- NOTE | 2020-02-29 07:07 | NUR ---
PT IN STABLE CONDITION WILL ENDORSE TO NEXT SHIFT
--- NOTE | 2020-02-29 07:08 | NUR ---
RECEIVED REPORT FROM INVESTMENT RECOVERY TECHNICIAN NURSE. PATIENT LYING DOWN IN BED, NO DISTRESS NOTED. AAOX1, ON B/L HANDS SOFT WRIST RESTRAINS PATIENT TRIES TO PULL OUT TUBINGS PER NIGHT RN REPORTS. RESPIRATIONS EVEN, UNLABORED, ON ROOM AIR. IV SITE INTACT, PATENT, AND INFUSING IVF PER MD ORDERS. BUE/BLE +2 PITTING EDEMA NOTED. MARROQUIN CATHETER IN PLACE, DRAINING CLEAR, YELLOW URINE. HAS SKIN TEARS ON LEFT AND RIGHT FOREARMS, DRESSING DRY AND INTACT. HAS SACRAL OLD HEALED WOUND AND PERINEAL REDNESS NOTED, HYDRGAURD CREAM IN PLACE. REVIEWED PLAN OF CARE WITH PATIENT. UNABLE TO COMPREHEND. SAFETY MEASURES IN PLACE, CALL LIGHT WITHIN REACH. WILL CONTINUE TO MONITOR.
[2020-02-29 08:00] VITALS: BP 136/75
[2020-02-29] MEDS: levETIRAcetam 100 MG/ML ORASYR GT SCH ×2 (10:00→22:04)
[2020-02-29] MEDS: FAMOTIDINE 20 MG TAB GT SCH (10:01)
[2020-02-29] MEDS: VALPROIC ACID 250 MG/5 ML UDC GT SCH ×2 (10:01→22:03)
[2020-02-29] MEDS: LACTULOSE 20 GM/30 ML UDC PO SCH (10:01)
[2020-02-29] MEDS: TAMSULOSIN 0.4 MG CAP GT SCH (10:01)
[2020-02-29] MEDS: ASCORBIC ACID 500 MG TAB PO SCH (10:02)
[2020-02-29] MEDS: ZINC SULF 220 MG CAP PO SCH (10:02)
[2020-02-29] MEDS: VITAMIN D 400 IU TAB PO SCH (10:02)
[2020-02-29] MEDS: DOCUSATE SODIUM 100 MG GELCAP PO SCH ×2 (10:02→21:00)
--- NOTE | 2020-02-29 10:19 | NUR ---
PATIENT LYING DOWN IN BED SLEEPING, AROUSABLE BY VOICE. NO DISTRESS NOTED. SCHEDULED MEDICATIONS DUE GIVEN. WILL CONTINUE TO MONITOR.
--- NOTE | 2020-02-29 10:33 | NUR ---
WOUND CARE EVALUATION NOTE: REASON FOR EVALUATION: LOW ANJELICA SCALE AND MULTIPLE WOUNDS SKIN ASSESSMENT DONE WITH THIS 69Y/O FEMALE PT ADMITTED FROM [facility] TO [facility] WITH INITIAL DX INCREASEING OF CONFUSION. PAST MEDICAL HX INCLUDES DEMENTIA, MENTAL DISABILITY, DYSPHAGIA, SEIZURE DISORDER, G-TUBE. ALL ABOVE INFORMATION OBTAINED FROM ADMISSION H&P. PT IS AWAKE. SKIN IS WARM AND DRY, BLE NO HAIR GROWTH, NO EDEMA. DORSAL PEDAL PULSES PRESENT AND NORMAL. CAPILLARY REFILLED < 2 SEC. X 10 TOES. INCONTINENT OF BOWEL X1 DURING ASSESSMENT. F/C PATENT WITH SMALL AMOUNT YELLOW COLOR URINE OUT PUT OBSERVED. PLAN OF CARE DISCUSSED WITH PRIMARY RN. INTEGUMENTARY: -GT SITE DAVE STOMA WITH SKIN INTACT. -MID ABDOMEN SURGICAL WOUND PARTIAL THICKNESS SKIN LOSS 1.5X0.5CM SUPERFICIAL DEPTH, MOIST, WOUND BED 100% PINK, NO ODOR, DAVE-WOUND SKIN HEALING SCARS -INCONTINENT ASSOCIATE DERMATITIS (IAD) TO: B/L GROINS EXTENDED TO PERINEUM, SKIN REDNESS -PRESSURE ULCER INJURY STAGE 2, SACROCOCCYX 2X1X0.1CM, DAVE-WOUND SKIN MOIST, NO ODOR, SURROUNDING REDNESS DENUDED SKIN,4X6CM TO RIGHT AND LEFT BUTTOCKS -LEFT ARM AND RIGHT-HAND SKIN TEARS AREA DRY AND CLEAN NO S/S OF INFECTION DRESSING DCI -RIGHT AND LEFT HEELS BLANCHABLE REDNESS RECOMMENDATIONS: -APPLY Z-GUARD TO R/L GROINS EXTENDED TO PERINEUM BID AND PRN IF SOILING - CLEANSE SACRALCOCCYX, LEFT AND RIGHT BUTTOCKS WITH WOUND CLEANSING SOLUTION AND APPLY Z GUARD COVER WITH FORM DRESSING TO SACROCOCCYX AND BUTTOCKS DAILY AND PRN IF SOILING PREVENTION - CLEANSE MID ABDOMINAL WOUND, LEFT ARM AND RIGHT HAND SKIN TEARS WITH WOUND CLEANSING SOLUTION PAT DRY AND APPLY HYDROGEL AND COVER WITH COMPOSITE DRESSING DAILY AND PRN IF SOILING PREVENTION -OFFLOAD BILATERAL HEELS BY PLACING PILLOWS UNDER CALVES UNLESS OTHERWISE CONTRAINDICATED -PRESSURE REDISTRIBUTION SURFACE THERAPY -TURN AND REPOSITION Q2H, OFFLOAD SACRALCOCCYX AND BUTTOCKS BY TURNING RIGHT AND LEFT -CONTINUE TO FOLLOW RD RECOMMENDATIONS ALL ABOVE RECOMMENDATIONS DISCUSSED WITH PRIMARY RN. PLEASE CONTACT WOUND CARE NURSE FOR ANY QUESTION AND CHANGE OF WOUND CONDITION.
[2020-02-29 12:00] VITALS: BP 100/73
--- NOTE | 2020-02-29 12:41 | NUR ---
CHILD PSYCHOLOGIST NOTE: Basic Screen: Yes High Risk DC Screen [place]: JOHANA Peirce Relationship: SISTER Pre-Admission Living Arrangements: SNF Other: [facility] Prior ADL Total/Dependent Current Home Health Name/Tel: N/A Current DME/02 Name/Tel: [facility] Current Hospice Name/Tel: N/A Current Dialysis Name/Tel: N/A Healthcare Decision Maker: Next of Kin Other: JOHANA HAMPTON Advance Directive No Physician Orders for Life Sustaining Treatment Form No Patient/Family Have Educational Needs No Discipline: Case Mgt/Social Svcs Tentative Discharge Plan/Destination: SNF/ECF Other: [facility] Will require assistance post discharge: No Referred to [employer]: No Tentative Discharge Plan Summary: PATIENT IS A 69-YEAR-OLD FEMALE ADMITTED FOR SEPSIS AND UTI. PATIENT HAS PMHX OF DEMENTIA, MENTAL DISABILITY, DYSPHAGIA, SEIZURE DISORDER, HYPERLIPEDEMIA, URINARY RETENTION AND GERD. PATIENT WAS ADMITTED FROM [facility]. SW CONTACTED HARJINDER FROM [facility] [phone]. PER HARJINDER, PATIENT IS SKILLED AND ON A BED HOLD. HARJINDER STATED THAT PATIENT REQUIRES TOTAL ASSISTANCE WITH ADLS AND IS NOT ALERT/ORIENTED AT BASELINE. TENTATIVE DISCHARGE PLAN IS FOR PATIENT TO RETURN TO [facility]. NO FURTHER NEEDS IDENTIFIED. Signature: JACQUI OLSEN Date: Feb 29, 2020 Time: 12:40
--- NOTE | 2020-02-29 13:00 | NUR ---
SPEECH THERAPIST AT BEDSIDE PERFORMING SWALLOW EVAL. WILL CONTINUE TO MONITOR .
[2020-02-29] MEDS ORDERED: Z-GUARD PASTE TP SCH (13:25)
[2020-02-29] MEDS: NACL 0.45% 1,000 ML IV SCH (14:57)
[2020-02-29] MEDS: SKINTEGRITY HYDROGEL TP SCH (14:57)
[2020-02-29] MEDS: Z-GUARD PASTE TP SCH (14:58)
--- NOTE | 2020-02-29 14:58 | NUR ---
SCHEDULED MEDICATIONS DUE GIVEN. WILL CONTINUE TO MONITOR.
[2020-02-29 16:00] VITALS: BP 103/51
--- NOTE | 2020-02-29 16:13 | NUR ---
PATIENT LYING DOWN IN BED SLEEPING, AROUSABLE BY VOICE. NO DISTRESS NOTED. CONDITION UNCHANGED. WILL CONTINUE TO MONITOR.
--- NOTE | 2020-02-29 16:36 | NUR ---
ST CLARIFICATION NOTE Pt DEMONSTRATING MODERATE OROPHARYNGEAL DYSPHAGIA. INITIALLY COUGHED WITH ICE CHIPS. Pt ABLE TO TOLERATE PUREE FOOD BY 1/2 TSP AND HONEY THICK LIQUIDS BY 1/2 TO LEVEL TSP W/O OVERT S/S OF ASPIRATION OR PENETRATION NOTED. Pt BENEFITTED FROM VERBAL CUES TO SWALLOW QUICKLY WITH PUREE BOLUS TRIALS. ONCE AP TRANSFER INITIATED, SWALLOW RESPONSE WAS TIMELY WITH FULL LARYNGEAL ELEVATION AND EXCURSION. REC TO CONTINUE MAIN NUTRITION VIA PEG, WITH ORAL GRATIFICATION (1-3oz) OF PUREE BY 1/2 TSP AND HONEY THICK LIQUIDS BY 1/2 TO LEVEL TSP ONLY. ASPIRATION PRECAUTIONS, ORAL CARE, AND FEEDER NEEDED. ST FOR SWALLOW TX ORDERED FOR ONGOING DIET ANALYSIS, SAFE SWALLOW STRATEGIES, AND Pt/CG EDUCATION.
--- NOTE | 2020-02-29 17:00 | NUR ---
MARROQUIN CATHETER REMOVED PER MD ORDERS. PATIENT TOLERATED WELL. WILL CONTINUE TO MONITOR.
[2020-02-29 17:35] LABS: ANION GAP 13.1 (8-16); CARBON DIOXIDE 27.7 mmol/L (21-32); CREATININE 0.7 mg/dL (0.6-1.3); POTASSIUM 3.8 mmol/L (3.5-5.1)
--- NOTE | 2020-02-29 17:35 | NUR ---
PATIENT LYING DOWN IN BED WATCHING TV. NO DISTRESS NOTED. DENIES ANY PAIN. SCHEDULED MEDICATIONS DUE GIVEN. WILL CONTINUE TO MONITOR.
--- NOTE | 2020-02-29 19:22 | NUR ---
GAVE REPORT TO MERCHANDISE SUPPORT ASSOCIATE NURSE FOR CONTINUITY OF CARE. PATIENT IN STABLE CONDITION.
--- NOTE | 2020-02-29 19:23 | NUR ---
RECEIVED REPORT FROM DAYSHIFT NURSE. PT IS IN BED WITHIN HOB ELEVATED. PT IS AOX1. UNABLE TO MAKE NEEDS KNOWN. PT CURRENTLY ON BUE SOFT RESTRAINTS DUE TO PULLING OUT OF TUBES AND LINES. RESPIRATIONS EVEN AND UNLABORED TO ROOM AIR. SKIN IS WARM AND DRY TO TOUCH. NOTED WITH EDEMA OF BOTH UPPER EXTREMITIES. SKIN TEAR PRESENT ON LFA AND R HAND. HEALED SACRAL ULCER NOTED WELL. IV ACCESS ON LFA G22 PATENT AND INTACT. IVF INFUSING WELL. NO S/SX OF DISTRESS NOTED. PLAN OF CARE DISCUSSED, PT UNABLE TO COMPREHEND. SAFETY MEASURES IN PLACE. WILL CONTINUE TO MONITOR.
[2020-02-29 20:00] VITALS: BP 130/69
--- NOTE | 2020-02-29 20:12 | NUR ---
VITAL SIGNS STABLE. NO S/SX OF DISTRESS NOTED. GTUBE FEEDING RUNNING WELL. SAFETY MEASURES IN PLACE. WILL CONTINUE TO MONITOR.
[2020-02-29] MEDS: SIMVASTATIN 20 MG TAB GT SCH (22:03)
--- NOTE | 2020-02-29 22:05 | NUR ---
NO RESIDUAL NOTED ON GTUBE. SCHEDULED MEDS GIVEN ORDERED. PT NOT IN DISTRESS. SAFETY MEASURES IN PLACE. WILL CONTINUE TO MONITOR.
[2020-03-01] VITALS: BP 133/76
--- NOTE | 2020-03-01 00:20 | NUR ---
ROUNDS MADE. VITAL SIGNS STABLE. NO S/SX OF DISTRESS. PT KEPT COMFORTABLE. SAFETY MEASURES IN PLACE. WILL CONTINUE TO MONITOR.
--- NOTE | 2020-03-01 02:11 | NUR ---
ROUNDS MADE. PT LYING IN BED SLEEPING. NO S/SX OF DISTRESS NOTED. RESPIRATIONS EVEN AND UNLABORED. SAFETY MEASURES IN PLACE. WILL CONTINUE TO MONITOR.
[2020-03-01 04:00] VITALS: BP 127/61
--- NOTE | 2020-03-01 04:15 | NUR ---
VITAL SIGNS STABLE. PT NOT IN DISTRESS. PERINEAL CARE RENDERED. WOUND DRESSING REINFORCED. PT TOLERATED CARE PROVIDED. SAFETY MEASURES IN PLACE. WILL CONTINUE TO MONITOR.
[2020-03-01 06:38] LABS: BASOPHILS # (AUTO) 0.1 K/uL (0.00-0.22); BASOPHILS % (AUTO) 1.4 % (0.0-2.0); EOSINOPHILS % (AUTO) 0.3 % (0.0-4.0); HEMATOCRIT 31.3 % (36-48); HEMOGLOBIN 10.1 g/dL (12.0-16.0); LYMPHOCYTES # (AUTO) 1.3 K/uL (2.5-16.5); LYMPHOCYTES % (AUTO) 27.6 % (20.5-51.1); MEAN CORPUSCULAR HEMOGLOBIN 29 pg (27-31); MEAN CORPUSCULAR HGB CONC 32 g/dL (33-37); MEAN CORPUSCULAR VOLUME 90.1 fL (80-94); MONOCYTES # (AUTO) 0.3 K/uL (0.8-1.0); MONOCYTES % (AUTO) 5.7 % (1.7-9.3); NEUTROPHILS # (AUTO) 3.2 K/uL (1.8-7.7); PLATELET COUNT (AUTO) 201 K/uL (140-450); RED BLOOD CELL COUNT(AUTO) 3.47 MIL/uL (4.20-5.40); WHITE BLOOD COUNT (AUTO) 4.9 K/uL (4.8-10.8)
[2020-03-01 06:44] LABS: ANION GAP 12.1 (8-16); CARBON DIOXIDE 26.3 mmol/L (21-32); CREATININE 0.6 mg/dL (0.6-1.3); POTASSIUM 3.4 mmol/L (3.5-5.1)
[2020-03-01 06:52] LABS: MAGNESIUM 1.8 mg/dL (1.8-2.4)
--- NOTE | 2020-03-01 07:25 | NUR ---
ENDORSED TO DAYSHIFT NURSE FOR CONTINUITY OF CARE. PT IN STABLE CONDITION.
--- NOTE | 2020-03-01 07:30 | NUR ---
RECEIVED PT FROM MEDIA CONSULTANT OUTSIDE SALES NURSE. PT IS CURRENTLY AWAKE, ALERT, AND LAYING IN BED WITH NO SIGNS OF DISTRESS NOTED. SKIN TEARS ON RIGHT HAND, LEFT FOREARM, AND ABD. G-TUBE IS PATENT AND FEEDING IS INFUSING PER ORDER. RESPIRATIONS ARE EVEN AND UNLABORED ON ROOM AIR. IV ASYMPTOMATIC AND INFUSING PER ORDER. SAFETY MEASURES IN PLACE AND WILL CONTINUE OT MONITOR.
[2020-03-01 08:00] VITALS: BP 181/94
[2020-03-01] MEDS: FAMOTIDINE 20 MG TAB GT SCH (08:46)
[2020-03-01] MEDS: ZINC SULF 220 MG CAP PO SCH (08:46)
[2020-03-01] MEDS: TAMSULOSIN 0.4 MG CAP GT SCH (08:46)
[2020-03-01] MEDS: ASCORBIC ACID 500 MG TAB PO SCH (08:46)
[2020-03-01] MEDS: VITAMIN D 400 IU TAB PO SCH (08:46)
[2020-03-01] MEDS: LACTULOSE 20 GM/30 ML UDC PO SCH (08:50)
[2020-03-01] MEDS: VALPROIC ACID 250 MG/5 ML UDC GT SCH (08:50)
[2020-03-01] MEDS: levETIRAcetam 100 MG/ML ORASYR GT SCH (08:50)
[2020-03-01] MEDS ORDERED: SODIUM PHOS / POTASSIUM PHOS 1 PKT PDR GT SCH (09:00)
[2020-03-01] MEDS: DOCUSATE SODIUM 100 MG GELCAP PO SCH (09:00)
--- NOTE | 2020-03-01 09:09 | NUR ---
ADMINISTERED MEDICATIONS PER ORDER AND TOLERATED WELL. COLACE HAS BEEN HELD DUE TO PT HAVING DIARRHEA PT STATES THAT SHE IS HUNGRY AND WANTS FOOD. NO SIGNS OF DISTRESS NOTED. SAFETY MEASURES IN PLACE, CALL LIGHT WITHIN REACH AND WILL CONTINUE TO MONITOR.
[2020-03-01] MEDS: NACL 0.45% 1,000 ML IV SCH (09:25)
[2020-03-01] MEDS ORDERED: AMOX500C25 GT (10:28)
[2020-03-01] MEDS ORDERED: POTASSIUM CHLORIDE 20% 40 MEQ/15 ML UDC GT SCH (10:30)
--- NOTE | 2020-03-01 10:38 | NUR ---
DISCHARGE PLANNING: THIS IS A 69 Y/O FEMALE PATIENT FROM [facility], WHO WAS BROUGHT IN DUE TO INCREASING CONFUSION AND COUGH. PAST MEDICAL HISTORY INCLUDE DEMENTIA, MENTAL DISABILITY, DYSPHAGIA, SEIZURE DISORDER, HYPERLIPIDEMIA, URINARY RETENTION AND GERD. INITIAL DIAGNOSIS OF SEPSIS, UTI. CURRENT LABS INCLUDE 4.9, H/H 10.1/31.3, NA/K 149/3.4, BUN/CREA 8/0.6. COVID NEGATIVE. INF A AND B NEGATIVE. CURRENT CHEST XRAY NO SIGNIFICANT INTERVAL CHANGE IN THE RIGHT LUNG BASE ATELECTASIS/INFILTRATE. NEPHRO, ID AND PULMO CONSULTS IN PLACE. DC PLAN BACK TO [facility] ONCE STABLE. Addendum: 03/01/20 at 1052 by Vani Fall CM FOR DC BACK TO [facility] TODAY. Addendum: 03/01/20 at 1120 by Vani Fall CM RECEIVED AN ORDER TO DC BACK TO [facility] FOR ORAL ANTIBIOTIC X 7 DAYS AND REPEAT BMP ON SATURDAY. CLINICALS SENT TO [facility]. PER HARJINDER OF [facility], ONE NEGATIVE COVID TEST IS OK AND THEIR DON IS IN THE PROCESS OF REVIEWING IT. SHE WILL CALL ME BACK ONCE BED IS AVAILABLE, WILL FOLLOW UP. SCOTT BECK MADE AWARE. Addendum: 03/01/20 at 1153 by Vani Fall CM PER HARJINDER YANEZ [facility], PATIENT WILL GO TO ROOM 30B UNDER DR. CONNER LAMBERT. PRIMARY RN CAROLYNN AND SCOTT BECK MADE AWARE. Addendum: 03/01/20 at 1201 by Kristine Carrera CM PATIENT WILL BE DISCHARGED TODAY BACK TO [facility] ROOM #30 B. I SPOKE TO THE PATIENTS SISTER JOHANA PARISH [phone] TO DISCUSS PATIENTS RIGHTS OF MEDICARE AND TO LET HER KNOW THAT HER SISTER WILL BE RETURNING TO [facility]. I DISCUSSED TRANSPORTATION WITH JOHANA AND ASKED IF SHE WOULD BE ABLE TO HELP WITH THE COST OF TRANSPORTATION, SHE STATED SHE COULD NOT. Addendum: 03/01/20 at 1224 by Kristine Carrera CM SPOKE TO HARJINDER AT [facility] AND ASKED IF THEY COULD PROVIDE TRANSPORTATION FOR PATIENT, SHE SPOKE TO HER ADMIN AND THEY ASKED IF WE COULD TRY BILLING MEDICARE PART B FIRST, IF THEY DO NOT ACCEPT THEN [facility] WILL BE BILLED. Addendum: 03/01/20 at 1422 by Kristine Carrera CM SPOKE TO KASSIDY AT [facility] [phone] TO NOTIFY HER OF PATIENTS DISCHARGE. CONTACTED HARJINDER SHE SAID IT WAS OKAY TO BILL [facility] FOR TRANSPORTATION. SET UP TRANSPORTATION WITH [facility], THEY WILL BE HERE AROUND 6:30-7:00 PM TO MARKETING SALES CONSULTANT THE PATIENT. CHARGE NURSE ELICIA IS AWARE.
--- NOTE | 2020-03-01 11:12 | NUR ---
PT IS CURRENTLY SITTING UP IN BED WITH NO SIGNS OF DISTRESS AT THIS TIME. PT WAS GIVEN THICKENED LIQUID AND TOLERATED WELL. DISCHARGE ORDER BACK TO [facility] IS IN PLACE. SAFETY MEASURES IN PLACE AND WILL CONTINUE OT MONITOR.
[2020-03-01 12:00] VITALS: BP 133/69
[2020-03-01] MEDS: SKINTEGRITY HYDROGEL TP SCH (13:07)
[2020-03-01] MEDS: Z-GUARD PASTE TP SCH (13:07)
--- NOTE | 2020-03-01 13:09 | NUR ---
ADMINISTERED MEDICATIONS PER ORDER AND TOLERATED WELL. PT STATES THAT SHE WANTS SOME MORE WATER AND WOULD LIKE SOME PUDDING WELL. SAFETY MEASURES IN PLACE AND WILL CONTINUE TO MONITOR.
--- NOTE | 2020-03-01 14:11 | NUR ---
PT HAS BEEN CHANGED BECAUSE CHUCKS WERE SOILED WITH URINE. PT KEEPS ASKING ABOUT DINNER AND WHEN IT WILL ARRIVE. NO SIGNS OF DISTRESS OR COMPLAINTS OF PAIN AT THIS TIME, SAFETY MEASURES IN PLACE AND WILL CONTINUE TO MONITOR.
--- NOTE | 2020-03-01 14:25 | NUR ---
[facility] NURSE CALLED REGARDING PTS STATUS. INFORMED NURSE THAT SHE WILL BE DISCHARGED TODAY AND HAVE YET TO RECEIVE A TIME. GAVE REPORT TO VENKAT WHO IS PATIENTS NURSE. GAVE CALL BACK NUMBER IN CASE OF ANY OTHER QUESTIONS. SAFETY MEASURES IN PLACE AND WILL CONTINUE TO MONITOR.
[2020-03-01 14:50] VITALS: BP 133/69
--- NOTE | 2020-03-01 15:57 | NUR ---
PT IS CURRENTLY ALERT, AWAKE AND WANTS FOOD. PT WAS GIVEN JELLO. SAFETY MEASURES IN PLACE AND WILL CONTINUE TO MONITOR. Addendum: 03/01/20 at 1559 by Ayah Gould RN JOHANA WAS NOTIFIED THAT PT WILL BE [place]URNING [place] [facility] AND HAD NO FURTHER QUESTIONS WERE ASKED
[2020-03-01 18:00] VITALS: BP 117/81
--- NOTE | 2020-03-01 18:54 | NUR ---
PT HAS BEEN DISCHARGED AND SENT TO [facility]. [employer] TRANSPORTATION CAME TO RESIDENTIAL TREATMENT COUNSELOR PATIENT. PT WAS IN NO SIGNS OF DISTRESS. RESPIRATIONS WERE EVEN AND UNLABORED ON ROOM AIR. SKIN TEAR DRESSINGS WERE IN PLACE. IV WAS TAKEN OUT WITH LUMEN INTACT AND MINIMAL BLOOD LOSS. ID BANDS WERE REMOVED. GAVE REPORT TO VENKAT AT [facility]. PT AUTOMOBILE BUMPER STRAIGHTENER WAS NOTIFIED. PT TEACHING REGARDING DISCHARGE WAS GIVEN.
[2020-03-03] MEDS ORDERED: SKINTEGRITY HYDROGEL TP SCH (09:00)
== END 2020-03-01 18:55 | DRG 871 ==
LOC: MED 16:37 → EEVIPCON 16:37 → MMU 17:49
PROVIDERS: ADMIT General Practice; ATTEND General Practice
DX: A41.9 Sepsis, unspecified organism (principal); J96.01 Acute respiratory failure with hypoxia; R65.21 Severe sepsis with septic shock; N17.0 Acute kidney failure with tubular necrosis; N39.0 Urinary tract infection, site not specified; E87.0 Hyperosmolality and hypernatremia; Z20.828 Contact with and (suspected) exposure to other viral communicable diseases; B95.2 Enterococcus as the cause of diseases classified elsewhere; E78.5 Hyperlipidemia, unspecified; G40.909 Epilepsy, unspecified, not intractable, without status epilepticus; K21.9 Gastro-esophageal reflux disease without esophagitis; I50.9 Heart failure, unspecified; I11.0 Hypertensive heart disease with heart failure; F03.90 Unspecified dementia, unspecified severity, without behavioral disturbance, psychotic disturbance, mood disturbance, and anxiety; Z93.1 Gastrostomy status; D64.9 Anemia, unspecified; E87.6 Hypokalemia; E83.42 Hypomagnesemia; E87.8 Other disorders of electrolyte and fluid balance, not elsewhere classified; E83.39 Other disorders of phosphorus metabolism; R80.9 Proteinuria, unspecified; F79 Unspecified intellectual disabilities; R33.9 Retention of urine, unspecified; K52.9 Noninfective gastroenteritis and colitis, unspecified
CPT/HCPCS: 36415; 51702; 71045; 80048; 80053; 81001; 82150; 83036; 83605; 83615; 83690; 83735; 83880; 84100; 84443; 84484; 85025; 85379; 85610; 85651; 85730; 86140; 87040; 87070; 87081; 87086; 87186; 87804; 92610; 93005; 99291; A6248; J0696; J1644; J2001; J3370; J3475; J3480; J3490; J7030; J7042; J7060; Q0092; U0003-CS

== ENCOUNTER 2020-08-20 13:49 | Inpatient (IN) | payer OTHER, MEDICAID, SELFPAY ==
[~2020-08-20] VITALS: Ht 165.1 cm; Wt 83.5 kg
[2020-08-20 13:49] VITALS: BP 160/96
[~2020-08-20 13:49] MED LIST changes: +ASCO500T95 GT; -ATI.5 GT; -CALC-1214 GT; -DIVA250T GT; +IV rocephin IV; +KEP500L GT; -LACT10SO1 PO; -LEVE1000 PO; -LORA10TA19 PO; +METF500T GT; +MULT-1868 GT; +NUTR887L11 GT; +VALP-22 GT
--- NOTE | 2020-08-20 13:49 | NUR ---
PATIENT PAULA ALS TO ER BED 06
[2020-08-20] MEDS ORDERED: LORazepam 2 MG/ML VIAL IVP ONE (14:05)
[2020-08-20] MEDS ORDERED: LORazepam 2 MG/ML VIAL ONE (14:06)
[2020-08-20] MEDS ORDERED: cefTRIAXone 1,000 MG in DEXT 5% MINI-BAG PLUS 50 ML IV ONE (14:10)
[2020-08-20 14:44] LABS: HEMATOCRIT 41.5 % (36-48); HEMOGLOBIN 12.8 g/dL (12.0-16.0); MEAN CORPUSCULAR HEMOGLOBIN 25 pg (27-31); MEAN CORPUSCULAR HGB CONC 31 g/dL (33-37); MEAN CORPUSCULAR VOLUME 81.6 fL (80-94); PLATELET COUNT (AUTO) 468 K/uL (140-450); RED BLOOD CELL COUNT(AUTO) 5.08 MIL/uL (4.20-5.40); RED CELL DISTRIBUTION WIDTH 19.3 % (11.6-13.7)
[2020-08-20] MEDS ORDERED: cefTRIAXone 1,000 MG VIAL ONE (14:44)
--- NOTE | 2020-08-20 14:48 | NUR ---
70 Y/O FEMALE BIBA FROM [facility], STAFF REPORTS SEIZURES BEGINNING TODAY. UPON ARRIVAL PATIENT WAS POST-TICAL, NON VERBAL, WITH EMESIS COVERING GOWN. GCS 11. BASELINE AAOX1. ONE WITNESSED TONIC CLONIC SEIZURE WHILE TRIAGING PATIENT THAT LASTED FOR 30 SECONDS. VSS. RESP EVEN AND UNLABORED. LUNG SOUNDS CLEAR IN BILAT LOBES. NO FACIAL ASYMMETRY NOTED AT THIS TIME. PERRLA 3MM. NO FACIAL GRIMACING NOTED AT THIS TIME. AFEBRILE. G TUBE NOTED IN PLACE. SMALL DAVE-UMBILICAL WOUND NOTED ABOVE BELLYBUTTON WITH FOAM DRESSING. PMH: SEIZURES
[2020-08-20 14:58] LABS: ALBUMIN 3.4 g/dL (3.4-5.0); ANION GAP 24.7 (8-16); CARBON DIOXIDE 20.2 mmol/L (21-32); CREATININE 1.2 mg/dL (0.6-1.3); POTASSIUM 3.9 mmol/L (3.5-5.1); TOTAL BILIRUBIN 0.2 mg/dL (0.0-1.0)
[2020-08-20 15:10] LABS: APPEARANCE,URINE SL CLOUDY (CLEAR); BILIRUBIN,URINE NEGATIVE (NEGATIVE); BLOOD, URINE NEGATIVE (NEGATIVE); COLOR,URINE YELLOW (YELLOW); LEUKOCYTE ESTERASE ,URINE 1+ (NEGATIVE); NITRITE, URINE NEGATIVE (NEGATIVE); UGLUCOSE NEGATIVE (NEGATIVE)
[2020-08-20 15:23] LABS: LYMPHOCYTES % (MANUAL) 10 % (20-46); MONOCYTES % (MANUAL) 7 % (5-12)
[2020-08-20] MEDS ORDERED: NACL 0.9% 1,000 ML IV ONE ×2 (15:25→16:35)
[2020-08-20 15:39] LABS: RBC,URINE 0-5 /HPF (0-5)
[2020-08-20] MEDS ORDERED: LORazepam 2 MG/ML VIAL IM/IVP PRN (16:10)
[2020-08-20] MEDS ORDERED: HYDROcodone/APAP 5/325 MG 1 TAB TAB GT PRN (16:10)
[2020-08-20] MEDS ORDERED: ZOLPIDEM 5 MG TAB PO PRN (16:10)
[2020-08-20] MEDS ORDERED: MORPHINE SULFATE 2 MG/ML SYR IVP PRN (16:10)
[2020-08-20] MEDS ORDERED: ACETAMINOPHEN 650 MG/20.3 ML UDC GT PRN (16:10)
[2020-08-20] MEDS ORDERED: DOCUSATE 100 MG/10 ML UDC GT PRN (16:10)
[2020-08-20] MEDS ORDERED: ONDANSETRON 4 MG/2 ML VIAL IM/IVP PRN (16:10)
[2020-08-20] MEDS ORDERED: MAG SULF 2000 MG/WATER PREMIX 50 ML IV PRN (16:15)
[2020-08-20] MEDS ORDERED: POTASSIUM CHLORIDE 20% 40 MEQ/15 ML UDC GT PRN (16:15)
--- NOTE | 2020-08-20 16:26 | NUR ---
[facility] SWAB COMPLETE, AND WALKED TO LAB
[2020-08-20 17:00] LABS: MAGNESIUM 2.7 mg/dL (1.8-2.4); PHOSPHORUS 4.2 mg/dL (2.5-4.9); THYROID STIMULATING HORMONE 0.26 uIU/mL (0.34-3.74)
[2020-08-20 17:01] LABS: PROTHROMBIN TIME 9.1 secs (10.8-13.4)
--- NOTE | 2020-08-20 18:11 | NUR ---
PT RESTING COMFORTABLY, RR 28, HR 109. PT REMAINS ON BEDSIDE MONITOR. NO SIGNS OF DISTRESS NOTED AT THIS TIME, CONTINUE TO MONITOR VS, ERMD AWARE OF PT STATUS.
--- NOTE | 2020-08-20 19:12 | NUR ---
RECIVED REPORT FROM PALOMO BAILEY. CONTINUATION OF CARE. PT ON SIZURE PRECAUTIONS. 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 PT VSS. PT REPOSTIONED FOR COMFORT. DIAPER IS DRY. PT BED IS LOCKED AND IN LOWEST POSTIONS.
--- NOTE | 2020-08-20 20:14 | NUR ---
Patient will be admitted to care of . Admited to TELE. Will go to room 124A. Belongings list completed. Report to RED RN. ETA TIME TO ROOM: 10 MIN.
--- NOTE | 2020-08-20 20:30 | NUR ---
PT TRANSFERED TO [facility] VIA [facility] WITH ASSISTANCE FROM MONTY BAILEY.
--- NOTE | 2020-08-20 20:31 | NUR ---
RECEIVED PT FROM ER VIA [employer]. PT IS A/OX1, RESPONSIVE TO SHAKING AND HER NAME. HEAD IS NORMAL CEPHALIC, EQUAL BILATERAL EYEBROWS, SYMMETRICAL SMILE, PMMM. NO JVD NOTED, BREATHING SPONTANEOUSLY ON ROOM AIR, SATURATING AT 100%. SKIN IS WARM AND DRY, ACTIVE WOUND NOTED ON ABD. CONTACT DERMATITIS NOTED ON THE BUTTOCKS. PHOTOS TAKEN AND DOCUMENTED. 20G IV TO LEFT AC, PATENT, ASYMPTOMATIC, INTACT. G-TUBE NOTED IN UPPER LEFT ABD QUADRANT, NO RESIDUAL NOTED. ORIENTED PT TO ROOM, CALL LIGHT, AND STAFF. BED IN LOW POSITION. SAFETY AND SEIZURE PRECAUTIONS IN PLACE.
[2020-08-20] MEDS: SIMVASTATIN 20 MG TAB GT SCH (21:00)
[2020-08-20] MEDS: metFORMIN 500 MG TAB GT SCH (21:00)
[2020-08-20] MEDS: ASCORBIC ACID 500 MG TAB GT SCH (21:00)
[2020-08-20] MEDS ORDERED: LATANOPROST 0.005% OP 2.5 ML BTL OP SCH (21:00)
[2020-08-20] MEDS: DOCUSATE 100 MG/10 ML UDC GT SCH (21:00)
[2020-08-20] MEDS: VALPROIC ACID 250 MG/5 ML UDC GT SCH (21:00)
[2020-08-20] MEDS: levETIRAcetam 100 MG/ML ORASYR GT SCH (21:00)
[2020-08-20] MEDS ORDERED: levETIRAcetam 100 MG/ML ORASYR ONE (22:32)
--- NOTE | 2020-08-20 22:45 | NUR ---
ADMINISTERED SCHEDULED MEDICATION. EDUCATION RENDERED. LARD REFINER AT BEDSIDE TO PERFORM PERINEAL CARE.
--- NOTE | 2020-08-21 01:01 | NUR ---
PERINEAL CARE RENDERED. FOUND REDNESS ON PT'S BUTTOCKS. PHOTOS TAKEN AND FILED IN THE CHART. ORDERED Z GUARD FOR THE REDNESS.
[2020-08-21 04:00] VITALS: BP 129/58
[2020-08-21] MEDS: NACL 0.9% 1,000 ML IV SCH ×2 (05:20→08:50)
--- NOTE | 2020-08-21 05:30 | NUR ---
CHIEF METEOROLOGIST AT BEDSIDE TO RENDER PERINEAL CARE.
--- NOTE | 2020-08-21 06:44 | NUR ---
PT HAS G-TUBE IN PLACE AND PER NOTES FROM [facility], PT IS DISPHAGIC BUT IS ALSO ON A [facility] SOFT DIET WITH THICKEN LIQUIDS. CALL [facility] TO CLARIFY THE PT'S DIET BUT [facility] DID NOT ANSWER.
[2020-08-21 07:02] LABS: CHOL/HDL RATIO 4.5 (1-4.5)
--- NOTE | 2020-08-21 07:14 | NUR ---
PATIENT HAS BEEN SCREENED AND CATEGORIZED HIGH NUTRITION RISK. PATIENT WILL BE SEEN WITHIN 1-2 DAYS OF ADMISSION. 08/22/20-08/23/20 RAJNI CHINO MS, RDN
--- NOTE | 2020-08-21 07:31 | NUR ---
RECEIVED ENDORSEMENT FROM DIRECTOR SPECIALTY, AWAKE,ALERT, INCOHERENT, BREATHING SPONTANEOUSLY AT ROOM AIR, WITH ONGOING IV FLUID WITH 0.9%NS AT 60ML/HOUR INFUSING LEFT AC G 20 I V CANNULA NOTED. ON SEIZURE PRECAUTION, SAFETY MEASURES IN PLACE AND CONTINUE MONITOR.
[2020-08-21 08:00] VITALS: BP 132/70
--- NOTE | 2020-08-21 08:00 | NUR ---
ENDORSED CARE TO AM NURSE. PT IS IN STABLE CONDITION.
--- NOTE | 2020-08-21 09:06 | NUR ---
STILL ASLEEP, NOT IN DISTRESS NOTED.
[2020-08-21] MEDS: DOCUSATE 100 MG/10 ML UDC GT SCH ×2 (10:20→21:02)
[2020-08-21] MEDS: metFORMIN 500 MG TAB GT SCH ×2 (10:20→21:02)
[2020-08-21] MEDS: FAMOTIDINE 20 MG TAB GT SCH (10:21)
[2020-08-21] MEDS: TAMSULOSIN 0.4 MG CAP GT SCH (10:21)
[2020-08-21] MEDS: levETIRAcetam 100 MG/ML ORASYR GT SCH ×2 (10:21→21:02)
[2020-08-21] MEDS: ASCORBIC ACID 500 MG TAB GT SCH ×2 (10:21→21:02)
--- NOTE | 2020-08-21 10:23 | NUR ---
G-TUBE CHECKED, NO RESIDUAL NOTED. DUE MEDICATION GIVEN
[2020-08-21] MEDS: VALPROIC ACID 250 MG/5 ML UDC GT SCH ×2 (10:26→21:02)
[2020-08-21] MEDS: FLUTICASONE NASAL 50 MCG/ACTUATION 16 GM BTL NS SCH (11:04)
[2020-08-21 12:00] VITALS: BP 114/60
--- NOTE | 2020-08-21 12:49 | NUR ---
VITAL SIGNS TAKEN AND RECORDED, STILL DROWSY AND SLEEPY NOTED.
[2020-08-21] MEDS: Z-GUARD PASTE TP SCH (13:56)
--- NOTE | 2020-08-21 14:50 | NUR ---
WOLF CONTACTED AND SPOKE WITH THE STAFF ASSIGNED TO MS. HERNANDEZ, ACCORDING TO HER THE FEEDING WAS GLUCERNA 1.2 70ML/HOUR + WATER 250ML/4HOUR. DR. JETER MADE AWARE AND SAID TO ORDER AND START THE FEEDING.
[2020-08-21 16:00] VITALS: BP 138/74
--- NOTE | 2020-08-21 17:00 | NUR ---
GLUCERNA 1.2 70ML/HOUR +WATER 250ML/4HOUR STARTED. APPARENTLY FOUND OUT PATIENT REMOVED HER IV CANNULA AT LEFT AC. DRESSING APPLIED, NO BLEEDING NOTED. IV CANNULA G22 INSERTED AT RT HAND, ASYMPTOMATIC AND PATENT.
--- NOTE | 2020-08-21 18:01 | NUR ---
AFTERNOON CARE DONE, HYDROGUARD APPLIED AT BUTTOCKS AND FOAM DRESSING APPLIED AT REDNESS AREA
--- NOTE | 2020-08-21 19:27 | NUR ---
ENDORSED TO METEOROLOGICAL OBSERVER IN STABLE CONDITION FOR CONTINUITY OF CARE.
--- NOTE | 2020-08-21 19:30 | NUR ---
RECEIVED PATIENT FROM AM SHIFT NURSE FOR CONTINUITY OF CARE. PATIENT IS ALERT WITH CONFUSION, ABLE TO MAKE SIMPLE NEEDS KNOWN. SKIN WARM AND DRY. IV SITE NOTED TO RIGHT HAND 22G PATENT/INTACT, INFUSING FLUIDS WELL. NO C/O PAIN. NO S/S ACUTE DISTRESS. ABDOMEN SOFT, NONTENDER, NONDISTENDED. BOWEL SOUNDS ACTIVE X4 QUADRANTS. GT PATENT, TOLERATING WELL. HOB UP 30 DEGREES. PATIENT IS INCONTINENT OF B/B. PLAN OF CARE DISCUSSED. CALL LIGHT WITHIN REACH. SAFETY PRECAUTIONS IN PLACE.
[2020-08-21 20:00] VITALS: BP 142/79
[2020-08-21] MEDS ORDERED: INSULIN LISPRO SLIDING SCALE 100 UNITS/ML VIAL SUBQ PRN (20:25)
[2020-08-21] MEDS ORDERED: DEXTROSE 50% 50 ML SYR IVP PRN (20:25)
[2020-08-21] MEDS: BLOOD GLUCOSE MONITORING 1 DEV DEV FS SCH (20:57)
[2020-08-21] MEDS: SIMVASTATIN 20 MG TAB GT SCH (21:02)
[2020-08-21] MEDS: LATANOPROST 0.005% OP 2.5 ML BTL OP SCH (21:03)
--- NOTE | 2020-08-21 21:45 | NUR ---
DUE MEDS GIVEN. NO S/S ACUTE DISTRESS. CALL LIGHT WITHIN REACH. SAFETY PRECAUTIONS IN PLACE.
[2020-08-21 22:06] LABS: BASOPHILS # (AUTO) 0.1 K/uL (0.00-0.22); BASOPHILS % (AUTO) 0.9 % (0.0-2.0); HEMATOCRIT 32.5 % (36-48); HEMOGLOBIN 10.2 g/dL (12.0-16.0); LYMPHOCYTES # (AUTO) 1.1 K/uL (2.5-16.5); LYMPHOCYTES % (AUTO) 11.4 % (20.5-51.1); MEAN CORPUSCULAR HEMOGLOBIN 25 pg (27-31); MEAN CORPUSCULAR HGB CONC 31 g/dL (33-37); MEAN CORPUSCULAR VOLUME 79.9 fL (80-94); MONOCYTES # (AUTO) 0.5 K/uL (0.8-1.0); MONOCYTES % (AUTO) 4.6 % (1.7-9.3); NEUTROPHILS # (AUTO) 8.2 K/uL (1.8-7.7); NEUTROPHILS % (AUTO) 83.1 % (42.2-75.2); PLATELET COUNT (AUTO) 278 K/uL (140-450); RED BLOOD CELL COUNT(AUTO) 4.07 MIL/uL (4.20-5.40); RED CELL DISTRIBUTION WIDTH 19.6 % (11.6-13.7); WHITE BLOOD COUNT (AUTO) 9.9 K/uL (4.8-10.8)
--- NOTE | 2020-08-21 23:00 | NUR ---
INCONTINENT CARE RENDERED. NO S/S ACUTE DISTRESS. CALL LIGHT WITHIN REACH.
[2020-08-22] VITALS: BP 105/54
[2020-08-22 00:59] LABS: ANION GAP 16.9 (8-16); CARBON DIOXIDE 23.2 mmol/L (21-32); POTASSIUM 4.1 mmol/L (3.5-5.1)
[2020-08-22] MEDS: Z-GUARD PASTE TP SCH ×2 (01:26→13:58)
[2020-08-22] MEDS: NACL 0.9% 1,000 ML IV SCH ×2 (01:31→16:37)
--- NOTE | 2020-08-22 01:48 | NUR ---
PATIENT IS ASLEEP. NO S/S ACUTE DISTRESS. CALL LIGHT WITHIN REACH. SAFETY PRECAUTIONS IN PLACE.
--- NOTE | 2020-08-22 03:48 | NUR ---
DRESSING CHANGED DUE TO SOILAGE. INCONTINENT CARE RENDERED WITH POKER MACHINE ATTENDANT AT BEDSIDE. CALL LIGHT WITHIN REACH. SAFETY PRECAUTIONS IN PLACE.
[2020-08-22 04:00] VITALS: BP 122/72
--- NOTE | 2020-08-22 05:52 | NUR ---
PATIENT RESTING COMFORTABLY IN BED. NO S/S ACUTE DISTRESS. CALL LIGHT WITHIN REACH. SAFETY PRECAUTIONS IN PLACE.
[2020-08-22 06:22] LABS: BASOPHILS % (AUTO) 0.2 % (0.0-2.0); EOSINOPHILS % (AUTO) 0.1 % (0.0-4.0); HEMATOCRIT 34.8 % (36-48); LYMPHOCYTES # (AUTO) 1.3 K/uL (2.5-16.5); LYMPHOCYTES % (AUTO) 12.2 % (20.5-51.1); MEAN CORPUSCULAR HEMOGLOBIN 25 pg (27-31); MEAN CORPUSCULAR HGB CONC 32 g/dL (33-37); MEAN CORPUSCULAR VOLUME 79.5 fL (80-94); MONOCYTES # (AUTO) 0.6 K/uL (0.8-1.0); MONOCYTES % (AUTO) 5.8 % (1.7-9.3); NEUTROPHILS # (AUTO) 8.5 K/uL (1.8-7.7); NEUTROPHILS % (AUTO) 81.7 % (42.2-75.2); PLATELET COUNT (AUTO) 267 K/uL (140-450); RED BLOOD CELL COUNT(AUTO) 4.37 MIL/uL (4.20-5.40); RED CELL DISTRIBUTION WIDTH 19.2 % (11.6-13.7); WHITE BLOOD COUNT (AUTO) 10.4 K/uL (4.8-10.8)
[2020-08-22 06:33] LABS: ANION GAP 15.2 (8-16); CARBON DIOXIDE 23.4 mmol/L (21-32); POTASSIUM 3.6 mmol/L (3.5-5.1)
[2020-08-22] MEDS: BLOOD GLUCOSE MONITORING 1 DEV DEV FS SCH ×4 (06:38→20:44)
[2020-08-22 07:08] LABS: PHOSPHORUS 2.7 mg/dL (2.5-4.9)
--- NOTE | 2020-08-22 07:30 | NUR ---
RECEIVED REPORT FROM NIGHT NURSE FOR CONTINUITY OF CARE, PT IS STABLE, PT ON ROOM AIR, PT ASLEEP, NO SIGNS OF DISTRESS NOTED, PT HAS G-TUBE INFUSING GLUCERNA AT 70ML/H WITH WATER FLUSH OF 250 Q4H, PT HAS RH 22G INFUSING NS AT 60ML/H, PT HAS ABD WOUND AND SACRAL REDNESS, SAFETY MEASURES IN PLACE WILL CONTINUE TO MONITOR
[2020-08-22 08:00] VITALS: BP 116/68
[2020-08-22] MEDS: metFORMIN 500 MG TAB GT SCH ×2 (09:42→20:41)
[2020-08-22] MEDS: TAMSULOSIN 0.4 MG CAP GT SCH (09:42)
[2020-08-22] MEDS: VALPROIC ACID 250 MG/5 ML UDC GT SCH ×2 (09:42→20:41)
[2020-08-22] MEDS: levETIRAcetam 100 MG/ML ORASYR GT SCH ×2 (09:42→20:40)
[2020-08-22] MEDS: FAMOTIDINE 20 MG TAB GT SCH (09:42)
[2020-08-22] MEDS: ASCORBIC ACID 500 MG TAB GT SCH ×2 (09:42→20:42)
[2020-08-22] MEDS: FLUTICASONE NASAL 50 MCG/ACTUATION 16 GM BTL NS SCH (09:43)
[2020-08-22] MEDS: DOCUSATE 100 MG/10 ML UDC GT SCH ×2 (09:49→20:41)
--- NOTE | 2020-08-22 09:49 | NUR ---
ADMINISTERED SCHEDULED MEDICATION, MEDICATION EDUCATION PROVIDED, PT TOLERATED WELL, PT IS STABLE, WILL CONTINUE TO MONITOR.
--- NOTE | 2020-08-22 10:37 | NUR ---
STARTED TUBE FEEDING, PT STABLE, WILL CONTINUE TO MONITOR.
[2020-08-22 11:46] VITALS: BP 132/62
--- NOTE | 2020-08-22 12:48 | NUR ---
WOUND CARE EVALUATION TO ABDOMINAL WOUND. OLD SURGICAL HEALING SCAR 1X1CM AREA PINK DRY, NO OPEN WOUND, GT, OSTOMY SITE DRY AND CLEAN. RECOMMENDATION TO CONTINUE APPLY FOAM DRESSING QD AND PRN IF SOILING.
--- NOTE | 2020-08-22 12:54 | NUR ---
DC [age] YRS OLD FEMALE PATIENT WAS ADMITTED FROM [facility] WITH A DX OF SEIZURE S AND UTI . PT HAS A HX OF COPD, DEMENTIA, SEIZURE ,ANEMIA AND INTELLECTUAL DISABILITY. CT HEAD NEGATIVE, RAPID COVID TEST NEGATIVE. STARTED ROCEPHIN IV ABX FOR UTI. BLOOD AND URINE CULTURE PENDING. CONSULTED WITH NEUROLOGIST DR NEWBY. DC PLAN TO GO BACK TO [facility] WHEN STABLE CM TO FOLLOW Addendum: 08/23/20 at 1121 by Kristine Carrera DC VOTATOR MACHINE OPERATOR: PLAN OF DISCHARGE IS FOR TOMORROW BACK TO [facility]. FAXED PATIENTS CLINICALS WILL FOLLOW UP. Addendum: 08/23/20 at 1221 by Kristine Carrera DC VOTATOR MACHINE OPERATOR: MEERA GRANDE AT [facility] WE CAN SET UP TRANSPORTATION AND BILL [facility]. PENDING BED NUMBER. Addendum: 08/23/20 at 1358 by Kristine Carrera CM SCOTT BECK: PATIENT CAN GO TO ROOM 40-A UNDER DR. GEE. FOR TRANSPORTATION WE CAN USE [employer] [phone] AND JOB BLOOM. Addendum: 08/23/20 at 1500 by Kristine Carrera CM SCOTT VOTATOR MACHINE OPERATOR: SPOKE TO PATIENTS JOHANA GREENWOOD [phone] TO NOTIFY HER THAT PATIENTS PLAN OF DISCHARGE IS FOR TOMORROW. DISCUSSED RIGHTS OF MEDICARE.
--- NOTE | 2020-08-22 14:01 | NUR ---
WOUND CARE DONE ON PT, PT TOLERATED OKAY, PT IS STABLE, WILL CONTINUE TO MONITOR.
--- NOTE | 2020-08-22 14:09 | NUR ---
SOCIAL WORK NOTE: Patient's Orientation Unable To Assess Information Provided By JOHANA HAWKINS - SISTER Comments SW WAS UNABLE TO MEET PATIENT AT BEDSIDE DUE TO MEDICAL CONDITION. SW COMPLETED ASSESSMENT WITH PATIENT'S SISTER. Rotary Drill Operator, Realtionship and Phone Number JOHANA GTUIERREZ [phone] Healthcare Power of Grain Miller Helper No Does Patient Have a POLST No Identifying Problems No Social Work Triggers Is A Social Work Consult Needed No Mandate Report Filed No Explanation Of Identifying Problems PATIENT IS A 70-YEAR-OLD FEMALE ADMITTED FOR SEIZURES/UTI. PATIENT HAS PMHX OF CARDIAC DISORDERS, DIABETES, GERD, AND SEIZURES. Ad[facility] - [phone] Pre-Admission Level Of Functioning Status Total Care Level Of Functioning Comment PER SISTER, PATIENT IS BED BOUND. Prior Resources/Services Used In Last 12 Months SNF Care Home Care Prior Resources/Service Comments PATIENT IS ASSISTED AND ON A BED HOLD. Prior [facility] Hospital Bed Wheelchair Dialysis Comments N/A Home Support No Caregiver Issues Financial Issues No Known Financial Issue Referral To The Financial Counselor Needed No Factors/Needs No D/C Needs Identified Explanation And Or Other Factors Affecting/Possible DC Needs SISTER STATED THAT SHE PREFERS PATIENT TO RETURN TO [facility]. Pt/Rep Participated In Discharge Plan Yes Patient/Family Agress With Discharge Plan Yes Discharge Plan Comments TENTATIVE DISCHARGE PLAN IS FOR PATIENT TO RETURN HOME. DC Plan Status Initiated
--- NOTE | 2020-08-22 14:40 | NUR ---
NOTIFIED DR JETER OF S RECOMMEND FOR GLUCERNA AT 60ML/H AND WATER FLUSH OF 100 ML Q4H. INPUT MRSA PROTOCOL.
--- NOTE | 2020-08-22 15:44 | NUR ---
08/22/20 RD INITIAL ASSESSMENT COMPLETED PLEASE REFER TO NUTRITION ASSESSMENT UNDER CARE ACTIVITY FOR ESTIMATED NUTRITIONAL NEEDS. 1. RECOMMEND REDUCING GOAL RATE OF GLUCERNA 1.2 TO 60 ML/HR X 24 HR -PROVIDES 1728 KCAL AND 86 GM OF PROTEIN, WHICH MEETS 100% OF ESTIMATED NUTRIENT NEEDS 2. RECOMMEND FREE WATER FLUSH OF 100 ML Q4H OR PER MD 3. RD TO FOLLOW-UP 2-3 DAYS, HIGH RISK DALJIT MONGE RD
[2020-08-22 16:00] VITALS: BP 122/52
[2020-08-22] MEDS: MUPIROCIN CA NASAL 2% 1GM TUBE NS SCH (16:39)
[2020-08-22] MEDS: CHLORHEXADINE GLUC 2% CLOTH TP SCH (16:40)
--- NOTE | 2020-08-22 16:43 | NUR ---
ADMINISTERED SCHEDULED MEDICATION, MEDICATION EDUCATION PROVIDED, PT TOLERATED WELL, PT IS STABLE, WILL CONTINUE TO MONITOR.
[2020-08-22] MEDS ORDERED: MUPIROCIN CA NASAL 2% 1GM TUBE NS SCH (17:35)
--- NOTE | 2020-08-22 19:15 | NUR ---
ENDORSE PT TO NIGHT NURSE FOR CONTINUITY OF CARE, PT IS STABLE
--- NOTE | 2020-08-22 19:16 | NUR ---
RECEIVED REPORT FROM DAY SHIFT NURSE. PT IN BED WITH HOB SLIGHTLY ELEVATED. PT AAOX2, WITH EPISODES OF CONFUSION, ABLE TO MAKE NEEDS KNOWN. RESPIRATIONS EVEN AND UNLABORED TO ROOM AIR. LUNG SOUNDS CLEAR. ABDOMEN IS SOFT AND NON-TENDER. PT WITH GTUBE IN PLACE WITH CONTINUOUS FEEDING INFUSING WELL. SKIN IS WARM AND DRY. PT WITH SACRAL REDNESS AND ABDOMINAL WOUND, DRESSING DRY AND INTACT. PT WITH IV ACCESS ON RIGHT HAND G20 PATENT AND INTACT. IVF INFUSING WELL. PT DENIES ANY PAIN OR DISCOMFORT AT THIS TIME. NO REQUESTS MADE. PT KEPT COMFORTABLE. SAFETY MEASURES IN PLACE. CALL LIGHT WITHIN REACH. WILL CONTINUE TO MONITOR.
[2020-08-22] MEDS ORDERED: POTASSIUM CHLORIDE 10 MEQ TABER PO PRN (19:45)
[2020-08-22] MEDS ORDERED: MAG SULF 2000 MG/WATER PREMIX 50 ML IV PRN (19:45)
[2020-08-22 20:10] VITALS: BP 141/66
[2020-08-22] MEDS: SIMVASTATIN 20 MG TAB GT SCH (20:41)
[2020-08-22] MEDS: LATANOPROST 0.005% OP 2.5 ML BTL OP SCH (20:42)
--- NOTE | 2020-08-22 20:44 | NUR ---
VS STABLE. 10ML RESIDUAL OBTAINED FROM GTUBE, CONTINUED WITH SCHEDULED MEDS. PT DENIES ANY PAIN OR DISCOMFORT AT THIS TIME. PT KEPT COMFORTABLE, TURNED TO SIDE. SAFETY MEASURES IN PLACE. CALL LIGHT WITHIN REACH. WILL CONTINUE TO MONITOR.
[2020-08-22] MEDS ORDERED: CHLORHEXADINE GLUC 2% CLOTH TP SCH (21:00)
--- NOTE | 2020-08-22 22:17 | NUR ---
ROUNDS MADE. PT WATCHING TV WITH HOB ELEVATED. PT NOT IN DISTRESS. DENIES ANY PAIN OR DISCOMFORT. NO REQUESTS MADE. PT TURNED TO SIDE. SAFETY MEASURES IN PLACE. CALL LIGHT WITHIN REACH. WILL CONTINUE TO MONITOR.
--- NOTE | 2020-08-23 00:12 | NUR ---
VS STABLE. PT IN BED RESTING. PT NOT IN DISTRESS. DENIES ANY PAIN OR DISCOMFORT. NO REQUESTS MADE. PT TURNED TO SIDE. SAFETY MEASURES IN PLACE. CALL LIGHT WITHIN REACH. WILL CONTINUE TO MONITOR.
[2020-08-23 00:15] VITALS: BP 140/51
--- NOTE | 2020-08-23 00:50 | NUR ---
ENDORSED TO SIMON PerezRN) FOR CONTINUITY OF CARE
--- NOTE | 2020-08-23 00:55 | NUR ---
RECEIVED PT SLEEPING, NO SIGNS OF DISTRESS, IVF INFUSING WELL, TUBE FEEDING ON-GOING, HOB ELEVATED AT ALL TIMES, MAINTAINED ON CONTACT ISOLATION FOR MRSA NARES POSITIVE, WILL REPOSITION Q2H AND OFFLOAD PRESSURE AREAS, CALL LIGHT WITHIN REACH, MONITORED CLOSELY.
[2020-08-23] MEDS: Z-GUARD PASTE TP SCH ×2 (01:15→13:15)
--- NOTE | 2020-08-23 02:55 | NUR ---
SEEN PT SLEEPING, NO SIGNS OF DISTRESS, NO SEIZURE ACTIVITY NOTED, IVF INFUSING WELL, TOLERATING TUBE FEEDING, MONITORED CLOSELY.
[2020-08-23 04:00] VITALS: BP 108/44
--- NOTE | 2020-08-23 04:30 | NUR ---
PT SLEEPING, EASILY AROUSABLE, VERBALLY RESPONSIVE BUT CONFUSED, REORIENT TO PLACE AND TIME, 10ML G-TUBE RESIDUAL NOTED, NEW TUBE FEEDING CONTAINER HANGED, KEEP HOB ELEVATED AT ALL TIMES, MONITORED CLOSELY.
[2020-08-23 06:02] LABS: BASOPHILS % (AUTO) 0.6 % (0.0-2.0); HEMATOCRIT 32.9 % (36-48); HEMOGLOBIN 10.4 g/dL (12.0-16.0); LYMPHOCYTES # (AUTO) 1.1 K/uL (2.5-16.5); LYMPHOCYTES % (AUTO) 12.9 % (20.5-51.1); MEAN CORPUSCULAR HEMOGLOBIN 25 pg (27-31); MEAN CORPUSCULAR HGB CONC 32 g/dL (33-37); MEAN CORPUSCULAR VOLUME 79.6 fL (80-94); MONOCYTES # (AUTO) 0.4 K/uL (0.8-1.0); MONOCYTES % (AUTO) 4.6 % (1.7-9.3); NEUTROPHILS # (AUTO) 6.9 K/uL (1.8-7.7); NEUTROPHILS % (AUTO) 81.9 % (42.2-75.2); PLATELET COUNT (AUTO) 237 K/uL (140-450); RED BLOOD CELL COUNT(AUTO) 4.14 MIL/uL (4.20-5.40); RED CELL DISTRIBUTION WIDTH 19.4 % (11.6-13.7); WHITE BLOOD COUNT (AUTO) 8.4 K/uL (4.8-10.8)
--- NOTE | 2020-08-23 06:03 | NUR ---
PT EASILY AROUSABLE, BLOOD SUGAR CHECKED WITH 120 RESULT, NO COVERAGE NEEDED, MONITORED CLOSELY, NO SEIZURE ACTIVITY THE WHOLE SHIFT.
[2020-08-23 06:30] LABS: ANION GAP 15.3 (8-16); CARBON DIOXIDE 24.7 mmol/L (21-32); CREATININE 0.8 mg/dL (0.6-1.3)
[2020-08-23 06:35] LABS: PHOSPHORUS 2.8 mg/dL (2.5-4.9)
[2020-08-23] MEDS: BLOOD GLUCOSE MONITORING 1 DEV DEV FS SCH ×4 (07:06→21:00)
--- NOTE | 2020-08-23 07:15 | NUR ---
PT SLEEPING, NO SIGNS OF DISTRESS, REPORT GIVEN TO RN RELYN FOR CONTINUITY OF CARE.
--- NOTE | 2020-08-23 07:16 | NUR ---
RECEIVED ENDORSEMENT FROM BOLT MAKER, AWAKE, ALERT, INCOHERENT, BREATHING SPONTANEOUSLY AT ROOM AIR. WITH ONGOING IV FLUID WITH 0.9NS AT 60ML/HOUR INFUSING AT RT HAND, G 22 IV CANNULA NOTED. WITH ONGOING TUBE FEEDING VIA G-TUBE GLUCERNA 1.2 60ML/HOUR +WATER 100ML/HOUR VIA G-TUBE. WITH DRY AND INTACT DRESSING NOTED AT ABDOMINAL WOUND. INCONTINENT. SAFETY MEASURES IN PLACE AND CONTINUE MONITOR.
[2020-08-23 08:00] VITALS: BP 112/55
--- NOTE | 2020-08-23 08:44 | NUR ---
AWAKE ,NOT IN DISTRESS NOTED.
--- NOTE | 2020-08-23 10:01 | NUR ---
FULLY AWAKE. G-TUBE CHECKED-5ML RESIDUAL NOTED. DUE MEDICATION GIVEN
[2020-08-23] MEDS: NACL 0.9% 1,000 ML IV SCH (10:10)
[2020-08-23] MEDS: FAMOTIDINE 20 MG TAB GT SCH (10:11)
[2020-08-23] MEDS: TAMSULOSIN 0.4 MG CAP GT SCH (10:11)
[2020-08-23] MEDS: levETIRAcetam 100 MG/ML ORASYR GT SCH ×2 (10:11→22:30)
[2020-08-23] MEDS: VALPROIC ACID 250 MG/5 ML UDC GT SCH ×2 (10:11→22:31)
[2020-08-23] MEDS: DOCUSATE 100 MG/10 ML UDC GT SCH ×2 (10:12→22:31)
[2020-08-23] MEDS: metFORMIN 500 MG TAB GT SCH (10:12)
[2020-08-23] MEDS: ASCORBIC ACID 500 MG TAB GT SCH ×2 (10:16→22:31)
[2020-08-23] MEDS: FLUTICASONE NASAL 50 MCG/ACTUATION 16 GM BTL NS SCH (10:18)
[2020-08-23] MEDS ORDERED: INSULIN LISPRO SLIDING SCALE 100 UNITS/ML VIAL SUBQ PRN (10:40)
[2020-08-23 12:00] VITALS: BP 141/89
--- NOTE | 2020-08-23 12:34 | NUR ---
VITAL SIGNS TAKEN AND RECORDED,STABLE.
--- NOTE | 2020-08-23 13:12 | NUR ---
GLUCOSE-140, NO INSULIN COVERAGE
--- NOTE | 2020-08-23 15:48 | NUR ---
AWAKE, NOT IN DISTRESS NOTED
[2020-08-23 16:00] VITALS: BP 118/56
[2020-08-23] MEDS: CHLORHEXADINE GLUC 2% CLOTH TP SCH (16:00)
--- NOTE | 2020-08-23 16:48 | NUR ---
AFTERNOON CARE DONE, CHUX FULL OF URINE AND PASTY STOOL IN MODERATE AMOUNT, DAVE-ANAL CARE, SPONGE BATH RENDERED WITH THE HELP OF APPLE PEELER OPERATOR. HYDRAGUARD APPLIED ANT BUTTOCKS AND FOAM DRESSING APPLIED. ABDOMINAL WOUND, DRY AND HEALING NOTED, FOAM DRESSING CHANGED.
[2020-08-23] MEDS: MUPIROCIN CA NASAL 2% 1GM TUBE NS SCH (17:00)
--- NOTE | 2020-08-23 17:02 | NUR ---
GLUCOSE- 107, NO INSULIN COVERAGE.
--- NOTE | 2020-08-23 19:19 | NUR ---
ENDORSED TO HEALTHCARE INSURANCE SALES AGENT IN STABLE CONDITION FOR CONTINUITY OF CARE
--- NOTE | 2020-08-23 19:20 | NUR ---
RECEIVED BEDSIDE REPORT FROM DAY SHIFT NURSE FOR CONTINUITY OF CARE. PT IS AWAKE, A&OX1. ON RA WITH BREATHING UNLABORED. SR ON TELE MONITORING. G TUBE IN PLACE WITH FEEDING RUNNING, GLUCERNA 1.2 AT 60 ML PER HOUR PER ORDER. SKIN IS WARM AND DRY. REDNESS IN THE SACRAL REGION WITH DRY OPTIFOAM IN PLACE. HEALING SURGICAL WOUND ON THE UMBILICAL AREA. IV IS IN THE RIGHT HAND 22 GAUGE RUNNING NS AT 60 ML PER HOUR PER ORDER. PT IS STABLE AT THIS TIME. PT IS ON CONTACT PRECAUTIONS AND SEIZURE PRECAUTIONS. MRSA NARES POSITIVE. PLAN OF CARE DISCUSSED.
[2020-08-23 20:00] VITALS: BP 155/79
--- NOTE | 2020-08-23 21:30 | NUR ---
PT G TUBE FEEDING IS CHANGED AND RESIDUAL IS LESS THAN 5 ML. PT IS TOLERATING FEEDING WELL. LUNG SOUNDS ARE CLEAR. BREATHING IS UNLABORED. IV FLUIDS ARE PATENT AND INFUSING. NO DISTRESS NOTED AT THIS TIME. WILL CONTINUE TO MONITOR.
--- NOTE | 2020-08-23 22:00 | NUR ---
Patient's Plan of Care was discussed and reviewed with CONTENT PRODUCER: BILLY LOPEZ Addendum: 08/24/20 at 0105 by Emerson Freitas RN CHARTED ON WRONG PT
[2020-08-23] MEDS: SIMVASTATIN 20 MG TAB GT SCH (22:31)
[2020-08-23] MEDS: LATANOPROST 0.005% OP 2.5 ML BTL OP SCH (22:38)
--- NOTE | 2020-08-23 23:30 | NUR ---
ROUNDED ON PT. SHE IS ASLEEP IN SEMI FOWLERS POSITION. CHEST RISE AND FALL IS SYMMETRICAL. IV FLUIDS ARE INFUSING. IV IS PATENT AND INTACT. G TUBE IS INFUSING ORDERED. BELONGINGS ARE WITHIN REACH. BED IS IN THE LOWEST POSITION AND CALL LIGHT IS WITHIN REACH.
[2020-08-24] VITALS: BP 142/67
--- NOTE | 2020-08-24 01:30 | NUR ---
G TUBE RESIDUAL WAS CHECKED AND IT IS 10 ML. PT IS STILL TOLERATING FEEDING WELL. WOUND CARE WAS PROVIDED. NEW DRESSING WAS APPLIED TO SURGICAL ABDOMINAL WOUND. IT WAS CLEANSED WITH NS AND PATTED DRY. REDNESS WAS ALSO NOTED ON THE BUTTOCKS REGION. Z GUARD WAS APPLIED AND OPTIFOAM WAS APPLIED. IT WAS ALSO CLEANSED WITH NS AND PATTED DRY. PT TOLERATED THE CHANGING WELL. WOUND CARE EDUCATION WAS PROVIDED AND PT WAS UNABLE TO VERBALIZE UNDERSTANDING. A&OX2. PT IS STABLE.
[2020-08-24] MEDS: Z-GUARD PASTE TP SCH ×2 (02:39→13:27)
--- NOTE | 2020-08-24 03:30 | NUR ---
PT IS SLEEPING. BREATHING IS UNLABORED. CHEST RISE AND FALL IS SYMMETRICAL. IV IS INFUSING AND PATENT. FALL PRECAUTIONS IN PLACE. NO DISTRESS NOTED.
[2020-08-24 04:00] VITALS: BP 140/75
[2020-08-24] MEDS: NACL 0.9% 1,000 ML IV SCH (04:09)
--- NOTE | 2020-08-24 05:30 | NUR ---
PT'S LINENS ARE SOILED. THEY WERE CHANGED AND PT WAS REPOSITIONED. NO DISTRESS NOTED DURING CHANGING. G TUBE RESIDUAL WAS LESS THAN 10 ML. PT IS TOLERATING FEEDING WELL. IV FLUIDS ARE INFUSING. PT IS NOW IN SEMI FOWLERS POSITION AND STABLE AT THIS TIME. PILLOWS USED TO SUPPORT BONY REGIONS. FALL PRECAUTIONS IN PLACE.
[2020-08-24 05:33] LABS: BASOPHILS % (AUTO) 0.3 % (0.0-2.0); EOSINOPHILS # (AUTO) 0.1 K/uL (0-0.4); EOSINOPHILS % (AUTO) 0.9 % (0.0-4.0); HEMATOCRIT 31.7 % (36-48); HEMOGLOBIN 10.3 g/dL (12.0-16.0); LYMPHOCYTES # (AUTO) 1.5 K/uL (2.5-16.5); LYMPHOCYTES % (AUTO) 17.5 % (20.5-51.1); MEAN CORPUSCULAR HEMOGLOBIN 26 pg (27-31); MEAN CORPUSCULAR HGB CONC 33 g/dL (33-37); MEAN CORPUSCULAR VOLUME 78.9 fL (80-94); MONOCYTES # (AUTO) 0.4 K/uL (0.8-1.0); NEUTROPHILS # (AUTO) 6.8 K/uL (1.8-7.7); NEUTROPHILS % (AUTO) 77.3 % (42.2-75.2); RED BLOOD CELL COUNT(AUTO) 4.03 MIL/uL (4.20-5.40); RED CELL DISTRIBUTION WIDTH 19.1 % (11.6-13.7); WHITE BLOOD COUNT (AUTO) 8.8 K/uL (4.8-10.8)
[2020-08-24] MEDS: BLOOD GLUCOSE MONITORING 1 DEV DEV FS SCH ×3 (06:17→16:16)
[2020-08-24 06:21] LABS: PLATELET COUNT (AUTO) 225 K/uL (140-450)
[2020-08-24 06:31] LABS: ANION GAP 12.4 (8-16); CARBON DIOXIDE 26.6 mmol/L (21-32); CREATININE 0.8 mg/dL (0.6-1.3)
[2020-08-24 06:48] LABS: PHOSPHORUS 3.1 mg/dL (2.5-4.9)
--- NOTE | 2020-08-24 07:30 | NUR ---
ENDORSED PT TO DAY SHIFT NURSE FOR CONTINUITY OF CARE. PT IS STABLE AT THIS TIME. SLEEPING COMFORTABLY IN SEMI FOWLERS POSITION. NO DISTRESS NOTED. PLAN OF CARE DISCUSSED.
--- NOTE | 2020-08-24 07:31 | NUR ---
RECEIVED ENDORSEMENT FROM ADMINISTRATIVE TECHNICIAN, ASLEEP ON BED, BREATHING SPONTANEOUSLY AT ROOM AIR, NON LABORED NOTED. WITH ONGOING IV FLUID WITH 0.9NS AT 60ML/HOUR INFUSING AT RT HAND, G 22 IV CANNULA NOTED. WITH ONGOING TUBE FEEDING VIA G-TUBE GLUCERNA 1.2 60ML/HOUR +WATER 100ML/HOUR VIA G-TUBE. WITH DRY AND INTACT DRESSING NOTED AT ABDOMINAL WOUND. INCONTINENT. SAFETY MEASURES IN PLACE AND CONTINUE MONITOR.
[2020-08-24 08:00] VITALS: BP 99/47
[2020-08-24] MEDS: DOCUSATE 100 MG/10 ML UDC GT SCH (09:42)
[2020-08-24] MEDS: VALPROIC ACID 250 MG/5 ML UDC GT SCH (09:42)
[2020-08-24] MEDS: levETIRAcetam 100 MG/ML ORASYR GT SCH (09:43)
[2020-08-24] MEDS: FAMOTIDINE 20 MG TAB GT SCH (09:43)
[2020-08-24] MEDS: TAMSULOSIN 0.4 MG CAP GT SCH (09:43)
[2020-08-24] MEDS: ASCORBIC ACID 500 MG TAB GT SCH (09:44)
[2020-08-24] MEDS: FLUTICASONE NASAL 50 MCG/ACTUATION 16 GM BTL NS SCH (09:49)
--- NOTE | 2020-08-24 09:58 | NUR ---
G-TUBE CHECKED-5ML RESIDUAL, DUE MEDICATION GIVEN.
[2020-08-24] MEDS ORDERED: VALP-22 GT (10:02)
--- NOTE | 2020-08-24 10:46 | NUR ---
MORNING CARE DONE, OPTIFOAM DRESSING CHANGED AT BUTTOCKS AND ABDOMEN, PICTURE TAKEN PRIOR DISCHARGE.
[2020-08-24 10:53] VITALS: BP 101/57
--- NOTE | 2020-08-24 11:45 | NUR ---
GLUCOSE-136, NO INSULIN COVERAGE.
[2020-08-24 12:00] VITALS: BP 113/59
--- NOTE | 2020-08-24 12:18 | NUR ---
VITAL SIGNS TAKEN AND RECORDED, STABLE.
--- NOTE | 2020-08-24 12:45 | NUR ---
CEC CONTACTED AND SPOKE WITH NURSE NANCY, REPORT GIVEN
--- NOTE | 2020-08-24 13:18 | NUR ---
IMMEDIATE FAMILY MS VAUGHN,THE SISTER CONTACTED AND MADE AWARE THAT THE PATIENT WILL DISCHARGE AND TRANSFER BACK TO [place] TODAY
--- NOTE | 2020-08-24 15:19 | NUR ---
STILL WAITING FOR TRANSPORT PERSONNEL, SCIENTIFIC PUBLICATIONS EDITOR CLAY SIERRA.
[2020-08-24 16:00] VITALS: BP 126/71
[2020-08-24] MEDS: MUPIROCIN CA NASAL 2% 1GM TUBE NS SCH (16:05)
[2020-08-24] MEDS: CHLORHEXADINE GLUC 2% CLOTH TP SCH (16:06)
--- NOTE | 2020-08-24 16:20 | NUR ---
[facility] CONTACTED AND ACCORDING TO THE STAFF , WILL BE DELAYED IN EVENING.
--- NOTE | 2020-08-24 18:58 | NUR ---
DISCHARGED IN STABLE CONDITION PER ALEKSEY, BREATHING SPONTANEOUSLY AT ROOM AIR, MIXING OPERATOR BY [facility]. DISCHARGE PACKET INSTRUCTION GIVEN.
== END 2020-08-24 18:55 | DRG 871 ==
LOC: MED 13:49 → MTU 16:14 → EEVIPCON 16:14
DX: A41.9 Sepsis, unspecified organism (principal); G93.41 Metabolic encephalopathy; N39.0 Urinary tract infection, site not specified; R65.20 Severe sepsis without septic shock; G40.909 Epilepsy, unspecified, not intractable, without status epilepticus; K21.9 Gastro-esophageal reflux disease without esophagitis; J44.9 Chronic obstructive pulmonary disease, unspecified; E86.0 Dehydration; E11.65 Type 2 diabetes mellitus with hyperglycemia; E66.9 Obesity, unspecified; H40.9 Unspecified glaucoma; R13.10 Dysphagia, unspecified; G30.9 Alzheimer's disease, unspecified; F02.80 Dementia in other diseases classified elsewhere, unspecified severity, without behavioral disturbance, psychotic disturbance, mood disturbance, and anxiety; D64.9 Anemia, unspecified; Z20.828 Contact with and (suspected) exposure to other viral communicable diseases; Z68.30 Body mass index [BMI] 30.0-30.9, adult
CPT/HCPCS: 36415; 70450; 71045; 80048; 80053; 81001; 82140; 82150; 82948; 83036; 83605; 83690; 83735; 83880; 84100; 84134; 84443; 84484; 85025; 85610; 85730; 87040; 87081; 87086; 87186; 87804; 93005; 96365; 96375; 97110; 97161-GP; 97530; 99285; J0696; J1644; J2060; J7060

== ENCOUNTER 2020-09-20 16:39 | Inpatient (IN) | payer OTHER, MEDICAID, SELFPAY ==
[~2020-09-20] VITALS: Ht 165.1 cm; Wt 99.3 kg
[~2020-09-20 16:39] MED LIST changes: -IV rocephin IV
[2020-09-20] MEDS ORDERED: DEXAMETHASONE 4 MG/ML VIAL IM ONE (17:55)
[2020-09-20] MEDS ORDERED: cefTRIAXone 1,000 MG in LIDOCAINE MPF 1% 2.1 ML IM ONE (17:55)
[2020-09-20] MEDS ORDERED: ALBUTEROL 0.083% 2.5 MG/3 ML NEBU INH ONE (17:55)
[2020-09-20] MEDS ORDERED: ALBUTEROL HFA MDI 90 MCG/ACTUATION 8 GM INH ONE (17:55)
[2020-09-20] MEDS ORDERED: AZITHROMYCIN 250 MG TAB PEG ONE (17:55)
[2020-09-20 18:09] VITALS: BP 110/80
[2020-09-20 19:12] LABS: BASOPHILS # (AUTO) 0.1 K/uL (0.00-0.22); BASOPHILS % (AUTO) 0.5 % (0.0-2.0); EOSINOPHILS # (AUTO) 0.1 K/uL (0-0.4); EOSINOPHILS % (AUTO) 0.5 % (0.0-4.0); HEMATOCRIT 40.1 % (36-48); HEMOGLOBIN 12.5 g/dL (12.0-16.0); LYMPHOCYTES # (AUTO) 2.1 K/uL (2.5-16.5); LYMPHOCYTES % (AUTO) 16.8 % (20.5-51.1); MEAN CORPUSCULAR HEMOGLOBIN 25 pg (27-31); MEAN CORPUSCULAR HGB CONC 31 g/dL (33-37); MEAN CORPUSCULAR VOLUME 79.8 fL (80-94); MONOCYTES # (AUTO) 0.9 K/uL (0.8-1.0); MONOCYTES % (AUTO) 7.5 % (1.7-9.3); NEUTROPHILS # (AUTO) 9.2 K/uL (1.8-7.7); NEUTROPHILS % (AUTO) 74.7 % (42.2-75.2); PLATELET COUNT (AUTO) 290 K/uL (140-450); RED BLOOD CELL COUNT(AUTO) 5.02 MIL/uL (4.20-5.40); RED CELL DISTRIBUTION WIDTH 20.5 % (11.6-13.7); WHITE BLOOD COUNT (AUTO) 12.4 K/uL (4.8-10.8)
[2020-09-20 19:33] LABS: ALBUMIN 2.8 g/dL (3.4-5.0); ANION GAP 14.8 (8-16); CARBON DIOXIDE 26.8 mmol/L (21-32); CREATININE 1.3 mg/dL (0.6-1.3); POTASSIUM 4.6 mmol/L (3.5-5.1); TOTAL BILIRUBIN 0.2 mg/dL (0.0-1.0)
[2020-09-20 20:20] LABS: D-DIMER 1930 ng/ml (0-400)
[2020-09-20 20:47] LABS: FIBRINOGEN 529 mg/dL (200-400)
--- NOTE | 2020-09-20 21:35 | NUR ---
8607 BIBA TO ER BED 04
--- NOTE | 2020-09-20 22:59 | NUR ---
70 y/o female biba from [facility] for c/o sob, weakness, fatigue. pt is bedbound w/ G-TUBE. pt on nasal cannula 2L. O2 saturation 94%. cough present. no fever. pmhx: COPD, GERD, Respiratory Failure, Dementia, Seizures nkda
--- NOTE | 2020-09-20 23:00 | NUR ---
SAMANTHA SWAB COLLECTED AND SENT TO LAB
[2020-09-20] MEDS ORDERED: cefTRIAXone 1,000 MG VIAL ONE (23:19)
[2020-09-20] MEDS ORDERED: DEXAMETHASONE 4 MG/ML VIAL ONE (23:19)
[2020-09-20] MEDS ORDERED: AZITHROMYCIN 250 MG TAB ONE (23:19)
[2020-09-20] MEDS ORDERED: LIDOCAINE MPF 1% 5 ML ONE (23:20)
[2020-09-20] MEDS ORDERED: CRUSHER, PILL MC ONE (23:21)
--- NOTE | 2020-09-21 01:50 | NUR ---
CALLED PT'S SISTER JOHANA. UPDATED ON PT STATUS. ALL QUESTIONS AND CONCERNS ANSWERED AT THIS TIME.
--- NOTE | 2020-09-21 02:55 | NUR ---
NOVEL SWAB COLLECTED AND SENT TO LAB
--- NOTE | 2020-09-21 04:31 | NUR ---
PT HAS EYES CLOSED, RESPIRATIONS EVEN AND UNLABORED. CHEST RISE IS SYMMETRICAL. WILL CONTINUE TO MONITOR.
--- NOTE | 2020-09-21 05:40 | NUR ---
PT TAKEN TO CT SCAN Addendum: 09/21/20 at 0604 by [email or web address] CAT RYDER
--- NOTE | 2020-09-21 06:00 | NUR ---
PT RETURNED FROM CT SCAN
[2020-09-21] MEDS ORDERED: HEPARIN PER PHARMACY MC PRN (06:55)
[2020-09-21] MEDS ORDERED: ONDANSETRON 4 MG/2 ML VIAL IVP PRN ×2 (07:05→08:20)
[2020-09-21] MEDS: NACL 0.9% 1,000 ML IV SCH ×2 (07:05→18:03)
[2020-09-21] MEDS ORDERED: HYDROcodone/APAP 5/325 MG 1 TAB TAB PO PRN (07:05)
[2020-09-21] MEDS ORDERED: ACETAMINOPHEN 325 MG TAB PO PRN ×2 (07:05→08:20)
[2020-09-21] MEDS ORDERED: LORazepam 2 MG/ML VIAL IM/IVP PRN (07:05)
[2020-09-21] MEDS ORDERED: DOCUSATE SODIUM 100 MG GELCAP PO PRN ×2 (07:05→08:20)
[2020-09-21] MEDS ORDERED: ZOLPIDEM 5 MG TAB PO PRN (07:05)
[2020-09-21] MEDS ORDERED: MORPHINE SULFATE 2 MG/ML SYR IVP PRN ×2 (07:05→08:20)
--- NOTE | 2020-09-21 07:29 | NUR ---
REPORT GIVEN TO JOSHUA BAILEY FOR CONTINUITY OF CARE
[2020-09-21] MEDS ORDERED: LORazepam 2 MG/ML VIAL IVP PRN (08:20)
[2020-09-21] MEDS ORDERED: POTASSIUM CHLORIDE 10 MEQ TABER PO PRN (08:20)
[2020-09-21] MEDS ORDERED: ZOLPIDEM 10 MG TAB PO PRN (08:20)
[2020-09-21] MEDS ORDERED: MAG SULF 2000 MG/WATER PREMIX 50 ML IV PRN (08:20)
[2020-09-21] MEDS: levETIRAcetam 100 MG/ML ORASYR GT SCH ×2 (09:00→21:00)
[2020-09-21] MEDS: DOCUSATE SODIUM 100 MG GELCAP PO SCH ×2 (09:00→21:00)
[2020-09-21] MEDS: FAMOTIDINE 20 MG TAB GT SCH (09:00)
[2020-09-21] MEDS: FLUTICASONE NASAL 50 MCG/ACTUATION 16 GM BTL NS SCH (09:00)
[2020-09-21] MEDS: metFORMIN 500 MG TAB GT SCH ×2 (09:00→21:00)
[2020-09-21] MEDS: ASCORBIC ACID 500 MG TAB GT SCH ×2 (09:00→21:00)
[2020-09-21] MEDS: VALPROIC ACID 250 MG/5 ML UDC GT SCH ×2 (09:00→21:00)
[2020-09-21] MEDS: TAMSULOSIN 0.4 MG CAP GT SCH (09:00)
[2020-09-21 09:01] LABS: HEMOGLOBIN 12.1 g/dL (12.0-16.0); MEAN CORPUSCULAR HEMOGLOBIN 25 pg (27-31); MEAN CORPUSCULAR HGB CONC 31 g/dL (33-37); MEAN CORPUSCULAR VOLUME 80.3 fL (80-94); PLATELET COUNT (AUTO) 253 K/uL (140-450); RED BLOOD CELL COUNT(AUTO) 4.86 MIL/uL (4.20-5.40); RED CELL DISTRIBUTION WIDTH 20.1 % (11.6-13.7); WHITE BLOOD COUNT (AUTO) 12.2 K/uL (4.8-10.8)
[2020-09-21 09:56] LABS: PROTHROMBIN TIME 10.1 secs (10.8-13.4)
[2020-09-21 10:17] LABS: ALBUMIN 2.6 g/dL (3.4-5.0); ANION GAP 16.5 (8-16); CARBON DIOXIDE 26.4 mmol/L (21-32); CREATININE 1.1 mg/dL (0.6-1.3); POTASSIUM 4.9 mmol/L (3.5-5.1); TOTAL BILIRUBIN 0.1 mg/dL (0.0-1.0)
[2020-09-21] MEDS ORDERED: CRUSHER, PILL MC ONE ×2 (10:22→22:04)
[2020-09-21 10:45] LABS: MAGNESIUM 2.7 mg/dL (1.8-2.4); PHOSPHORUS 3.9 mg/dL (2.5-4.9)
[2020-09-21 10:46] LABS: FREE T4 (FREE THYROXINE) 1.72 ng/dL (0.76-1.46); THYROID STIMULATING HORMONE 0.14 uIU/mL (0.34-3.74)
[2020-09-21 10:58] LABS: MONOCYTES % (MANUAL) 4 % (5-12)
[2020-09-21 10:59] LABS: LYMPHOCYTES % (MANUAL) 11 % (20-46)
[2020-09-21] MEDS: PIPERACILLIN/TAZOBACTAM 3.375 GM in DEXTROSE 5% 50 ML IV SCH ×2 (12:00→18:03)
--- NOTE | 2020-09-21 12:02 | NUR ---
SOCIAL WORK NOTE: Patient's Orientation Unable To Assess Information Provided By HARJINDER - WOLF Comments SW WAS UNABLE TO MEET PATIENT AT BEDSIDE DUE TO MEDICAL CONDITION. SW LEFT PATIENT'S SISTER RUBIO. SW COMPLETED ASSESSMENT WITH [facility] STAFF. Chemistry Technical Officer, Realtionship and Phone Number JOHANA HAWKINS SISTER [phone] Healthcare Power of Compliance Quality Performance Analyst No Does Patient Have a POLST No Identifying Problems No Social Work Triggers Is A Social Work Consult Needed No Mandate Report Filed No Explanation Of Identifying Problems PATIENT IS A 70-YEAR-OLD FEMALE ADMITTED FOR COPD EXACERBATION. PATIENT HAS PMHX OF DEMENTIA, EPILEPSY, RESPIRATORY FAILURE, AND DYSPHAGIA. Admitted From Skilled Nursing Care/[facility] Half-Way Facility [facility] - [phone] Pre-Admission Level Of Functioning Status Total Care Prior Resources/Services Used In Last 12 Months SNF Skilled Nursing Care Prior Resources/Service Comments PER HARJINDER, PATIENT IS CARE HOME AND ON A BED HOLD. Prior DME Wheelchair Patient Had Caregiver No Home Support No Caregiver Issues Financial Issues No Known Financial Issue Referral To The Financial Counselor Needed No Pt/Rep Participated In Discharge Plan Yes Patient/Family Agress With Discharge Plan Yes Discharge Plan Comments TENTATIVE DISCHARGE PLAN IS FOR PATIENT TO RETURN HOME. DC Plan Status Initiated
[2020-09-21 13:20] LABS: APPEARANCE,URINE CLEAR (CLEAR); BILIRUBIN,URINE NEGATIVE (NEGATIVE); BLOOD, URINE 1+ (NEGATIVE); COLOR,URINE YELLOW (YELLOW); LEUKOCYTE ESTERASE ,URINE NEGATIVE (NEGATIVE); NITRITE, URINE NEGATIVE (NEGATIVE); PH,URINE 6.5 (5.0-9.0); UGLUCOSE NEGATIVE (NEGATIVE)
[2020-09-21 13:21] LABS: BARBITURATE, URINE NEGATIVE ng/ml (NEG <=200); BENZODIAZEPINE, URINE NEGATIVE ng/mL (NEG <=200); CANNABINOID, URINE NEGATIVE ng/mL (NEG <=50); COCAINE, URINE NEGATIVE ng/mL (NEG <=300); OPIATE, URINE NEGATIVE ng/mL (NEG <=2000); PHENCYCLIDINE SCREEN,URINE NEGATIVE ng/mL (NEG <=25)
[2020-09-21 13:41] LABS: RBC,URINE 0-5 /HPF (0-5); WBC,URINE 0-5 /HPF (0-5)
[2020-09-21] MEDS ORDERED: PIPERACILLIN/TAZOBACTAM 3.375 GM VIAL IV ONE ×2 (13:41→18:05)
--- NOTE | 2020-09-21 15:00 | NUR ---
DC PLANNIN YRS OLD FEMALE PATIENT [place] [facility] OF [place] EXACERBATION. PT HAS A HX OF COPD, GERD AND GLAUCOMA. CXR SHOWED NO ACUTE CARDIOPULMONARY DISEASE. LOW LUNG VOLUMES . CT CHEST SHOWED POSITIVE FOR LEFT UPPER LOBE PE. RAPID COVID TEST IS NEGATIVE PCR IS PENDING. STARTED WITH RT PROTOCOL, ZOSYN IV ABX AND CONTINUED HOME MEDS. CONSULTIED WITH PULMO AND ID. DC PLAN TO GO BACK [place] [facility] [place] WHEN STABLE CM TO FOLLOW. Addendum: 09/26/20 at 1513 by Kristine Carrera CM DC LAY OUT CARPENTER: PER DR. GEE PATIENT WILL BE STAYING TODAY Addendum: 09/27/20 at 1516 by Kristine Carrera CM DC LAY OUT CARPENTER: PATIENT WILL BE DISCHARGED BACK [place] [facility]. ROOM 40A UNDER DR[address] GEE. SET UP TRANSPORTATION WITH [facility] [phone] FOR 7:00PM NOTIFIED RN MADDIE. Addendum: 09/27/20 at 1529 by Kristine Carrear CM DC LAY OUT CARPENTER: CONTACTED PATIENTS JOHANA GREENWOOD [phone] TO NOTIFY HER THAT PATIENT WILL BE DC BACK [place] [facility] [place]. ALSO NOTIFIED HARJINDER AT [facility].
--- NOTE | 2020-09-21 16:51 | NUR ---
PATIENT HAS BEEN SCREENED AND CATEGORIZED HIGH NUTRITION RISK. PATIENT WILL BE SEEN WITHIN 1-2 DAYS OF ADMISSION. 09/21/20-09/22/[address]
--- NOTE | 2020-09-21 16:55 | NUR ---
Stable VSS Afebrile 02 sat adequate No SOB Is becoming confused though. In view of nursing station. Admitted Awaiting bed on floor
--- NOTE | 2020-09-21 19:30 | NUR ---
RECEIVED REPORT FROM JOSHUA BAILEY FOR CONTINUITY OF CARE.
--- NOTE | 2020-09-21 20:00 | NUR ---
PER RT UNABLE TO ADMINISTER PROVENTIL AND VENTOLIN DUE TO COVID PRECAUTIONS. NOTIFIED ADMIT SLAB OFF MILL TENDER.
[2020-09-21] MEDS: SIMVASTATIN 20 MG TAB GT SCH (21:00)
[2020-09-21] MEDS: LATANOPROST 0.005% OP 2.5 ML BTL OP SCH (21:00)
--- NOTE | 2020-09-21 21:15 | NUR ---
ACCUCHECK AT THIS TIME WAS 166.
--- NOTE | 2020-09-21 22:00 | NUR ---
PT LAYING IN BED IN NO ACUTE DISTRESS NOTED, BREATHING EVEN AND UNLABORED EVIDENCE BY RISE AND FALL OF CHEST WALL. ON 2 L OF OXYGEN VIA NC. IVF OF 0.9% RUNNING AT THIS TIME. ON BEDSIDE CARDIAC MONITORING, BP MONITORING AND PULSE OXIMETRY. BED LOCKED AND IN LOWEST POSITION.
[2020-09-22] MEDS ORDERED: PIPERACILLIN/TAZOBACTAM 3.375 GM VIAL IV ONE ×4 (00:34→18:29)
[2020-09-22] MEDS: NACL 0.9% 1,000 ML IV SCH ×2 (03:05→13:07)
--- NOTE | 2020-09-22 03:08 | NUR ---
RECEIVED CRITICAL LAB VALUE FROM DRILL HAND [facility]: LACTIC ACID 4.8. NOTIFIED DR. ADAMS NO NEW ORDERS GIVEN AT THIS TIME.
[2020-09-22] MEDS: PIPERACILLIN/TAZOBACTAM 3.375 GM in DEXTROSE 5% 50 ML IV SCH ×5 (06:00→18:37)
[2020-09-22 06:23] LABS: LACTATE DEHYDROGENASE 169 IU/L (119-226)
--- NOTE | 2020-09-22 07:25 | NUR ---
REPORT GIVEN TO ERNIE BAILEY FOR CONTINUITY OF CARE.
--- NOTE | 2020-09-22 07:26 | NUR ---
Received report from LEO Miles. Transfer of care at this time.
--- NOTE | 2020-09-22 07:46 | NUR ---
Pt sleeping, equal visible rise and fall of chest, VSS, will continue to monitor.
[2020-09-22 08:30] LABS: BASOPHILS % (AUTO) 0.5 % (0.0-2.0); EOSINOPHILS % (AUTO) 0.1 % (0.0-4.0); HEMATOCRIT 36.8 % (36-48); HEMOGLOBIN 11.6 g/dL (12.0-16.0); LYMPHOCYTES # (AUTO) 0.9 K/uL (2.5-16.5); LYMPHOCYTES % (AUTO) 8.5 % (20.5-51.1); MEAN CORPUSCULAR HEMOGLOBIN 26 pg (27-31); MEAN CORPUSCULAR HGB CONC 31 g/dL (33-37); MEAN CORPUSCULAR VOLUME 81.2 fL (80-94); MONOCYTES # (AUTO) 0.7 K/uL (0.8-1.0); MONOCYTES % (AUTO) 6.9 % (1.7-9.3); NEUTROPHILS # (AUTO) 8.6 K/uL (1.8-7.7); PLATELET COUNT (AUTO) 230 K/uL (140-450); RED BLOOD CELL COUNT(AUTO) 4.54 MIL/uL (4.20-5.40); RED CELL DISTRIBUTION WIDTH 20.6 % (11.6-13.7); WHITE BLOOD COUNT (AUTO) 10.3 K/uL (4.8-10.8)
[2020-09-22] MEDS: DOCUSATE SODIUM 100 MG GELCAP PO SCH ×2 (09:00→21:30)
[2020-09-22 09:10] LABS: ANION GAP 16.7 (8-16); CARBON DIOXIDE 25.1 mmol/L (21-32); POTASSIUM 3.8 mmol/L (3.5-5.1)
[2020-09-22 09:21] LABS: FERRITIN 98 ng/mL (15-150)
[2020-09-22] MEDS ORDERED: CRUSHER, PILL MC ONE (09:39)
[2020-09-22] MEDS: metFORMIN 500 MG TAB GT SCH ×2 (09:46→21:21)
[2020-09-22] MEDS: FLUTICASONE NASAL 50 MCG/ACTUATION 16 GM BTL NS SCH (09:46)
[2020-09-22] MEDS: VALPROIC ACID 250 MG/5 ML UDC GT SCH ×2 (09:46→21:23)
[2020-09-22] MEDS: TAMSULOSIN 0.4 MG CAP GT SCH (09:46)
[2020-09-22] MEDS: levETIRAcetam 100 MG/ML ORASYR GT SCH ×2 (09:46→21:25)
[2020-09-22] MEDS: ASCORBIC ACID 500 MG TAB GT SCH ×2 (09:47→21:27)
[2020-09-22] MEDS: FAMOTIDINE 20 MG TAB GT SCH (09:47)
--- NOTE | 2020-09-22 09:58 | NUR ---
Spoke with pharmacy, stated order for heparin drip was supposed to be started since 09/21 1000, not started at this time. Will start now, following protocol with bolus and drip.
--- NOTE | 2020-09-22 10:30 | NUR ---
Per pharmacy, PTT 24.6, give heparin 6000units bolus IVP and start heparin drip at 1600 (1300 units initial plus the increase 300units). Cosigned and verified lab values/orders by 3RNS.
[2020-09-22] MEDS: hePARIN / DEXT 5% PREMIX 250 ML IV SCH ×2 (11:13→19:37)
--- NOTE | 2020-09-22 11:49 | NUR ---
Pt sleeping, HOB elevated, VSS, will continue to monitor.
--- NOTE | 2020-09-22 13:37 | NUR ---
09/22/20 RD INITIAL ASSESSMENT COMPLETED PLEASE REFER TO NUTRITION ASSESSMENT UNDER CARE ACTIVITY FOR ESTIMATED NUTRITIONAL NEEDS. 1. RECOMMEND GLUCERNA 1.2 @ 60 ML/HR. START AT 20 AND INCREASE BY 20 Q4H. -THIS WILL PROVIDE 1440 ML OF VOLUME, 1159 ML OF WATER, 1728 KCAL, 86 GM OF PROTEIN. 2. RECOMMEND WATER FLUSH OF [address] TO FOLLOW-UP 2-3 DAYS, HIGH RISK DALJIT MONGE RD
--- NOTE | 2020-09-22 13:54 | NUR ---
Per FNS, will be paged for [employer] nutrition consult to initiate feedings.
--- NOTE | 2020-09-22 14:04 | NUR ---
Received critical lab value lactic 2.8, Dr. Gooden made aware.
--- NOTE | 2020-09-22 14:12 | NUR ---
Pt titrated off O2 from 2L NC, O2 remaining above 95%, will continue to monitor.
--- NOTE | 2020-09-22 14:13 | NUR ---
Spoke with pharmacy, asked for us to titrate heparin drip from 1600Units to 1300Units. Cosigned and verified by 2 RN's.
--- NOTE | 2020-09-22 14:30 | NUR ---
Dr. Flores, registered nurse step down at pt bedside.
--- NOTE | 2020-09-22 16:41 | NUR ---
communications engineering technician at bedside.
--- NOTE | 2020-09-22 16:50 | NUR ---
FNS delivered Glucerna 1:60mL/hr for tube feedings. Connected to gtube with 14 drops per minute.
--- NOTE | 2020-09-22 18:09 | NUR ---
Pt resting, provided warm blanket, repositioned for comfort.
--- NOTE | 2020-09-22 19:31 | NUR ---
Gave report to LOE Wilks, transfered care at this time.
--- NOTE | 2020-09-22 20:00 | NUR ---
RESTING IN BED WITH EYES OPEN. RESPIRATIONS REGULAR AND UNLABORED. APPEARS IN NAD.
[2020-09-22] MEDS: SIMVASTATIN 20 MG TAB GT SCH (21:28)
--- NOTE | 2020-09-23 00:01 | NUR ---
CONTINUES TO REST COMFORTABLY. ASSISTED WITH REPOSITIONING. GLUCERNA CONTINUES AT 60ML /HR
--- NOTE | 2020-09-23 04:00 | NUR ---
AWAKE, PULLED IV OUT. 22G SL ESTABLISHED RIGHT UPPER ARM
[2020-09-23] MEDS: NACL 0.9% 1,000 ML IV SCH ×2 (05:19→10:05)
--- NOTE | 2020-09-23 06:15 | NUR ---
AWAKE, RESPIRATIONS ARE REGULAR AND UNLABORED. HEPARIN GTT CONTINUES ORDERED. PT SMILES. ASSISTED WITH REPOSITIONING FOR COMFORT.
[2020-09-23] MEDS: PIPERACILLIN/TAZOBACTAM 3.375 GM in DEXTROSE 5% 50 ML IV SCH ×3 (06:20→18:52)
[2020-09-23] MEDS ORDERED: PIPERACILLIN/TAZOBACTAM 3.375 GM VIAL IV ONE ×3 (06:25→18:53)
--- NOTE | 2020-09-23 07:22 | NUR ---
REPORT TO LEO LITTLEJOHN
--- NOTE | 2020-09-23 07:23 | NUR ---
Report received from LEO Wilks for continuity of care
[2020-09-23 08:16] LABS: BASOPHILS # (AUTO) 0.1 K/uL (0.00-0.22); BASOPHILS % (AUTO) 0.4 % (0.0-2.0); HEMATOCRIT 38.6 % (36-48); HEMOGLOBIN 11.9 g/dL (12.0-16.0); LYMPHOCYTES # (AUTO) 0.8 K/uL (2.5-16.5); LYMPHOCYTES % (AUTO) 6.5 % (20.5-51.1); MEAN CORPUSCULAR HEMOGLOBIN 25 pg (27-31); MEAN CORPUSCULAR HGB CONC 31 g/dL (33-37); MEAN CORPUSCULAR VOLUME 81.6 fL (80-94); MONOCYTES # (AUTO) 0.6 K/uL (0.8-1.0); MONOCYTES % (AUTO) 5.2 % (1.7-9.3); NEUTROPHILS # (AUTO) 10.8 K/uL (1.8-7.7); NEUTROPHILS % (AUTO) 87.9 % (42.2-75.2); PLATELET COUNT (AUTO) 243 K/uL (140-450); RED BLOOD CELL COUNT(AUTO) 4.73 MIL/uL (4.20-5.40); RED CELL DISTRIBUTION WIDTH 20.9 % (11.6-13.7); WHITE BLOOD COUNT (AUTO) 12.3 K/uL (4.8-10.8)
[2020-09-23 08:38] LABS: ANION GAP 13.3 (8-16); CARBON DIOXIDE 27.3 mmol/L (21-32); CREATININE 1.1 mg/dL (0.6-1.3); POTASSIUM 3.6 mmol/L (3.5-5.1)
[2020-09-23] MEDS: FLUTICASONE NASAL 50 MCG/ACTUATION 16 GM BTL NS SCH (09:00)
[2020-09-23] MEDS: FAMOTIDINE 20 MG TAB GT SCH (09:45)
[2020-09-23] MEDS: levETIRAcetam 100 MG/ML ORASYR GT SCH ×2 (09:45→22:29)
[2020-09-23] MEDS: ASCORBIC ACID 500 MG TAB GT SCH ×2 (09:45→22:29)
[2020-09-23] MEDS: TAMSULOSIN 0.4 MG CAP GT SCH (09:45)
[2020-09-23] MEDS: metFORMIN 500 MG TAB GT SCH ×2 (09:45→22:28)
[2020-09-23] MEDS: DOCUSATE SODIUM 100 MG GELCAP PO SCH ×2 (09:45→21:00)
[2020-09-23] MEDS ORDERED: levETIRAcetam 500 MG TAB ONE (10:41)
--- NOTE | 2020-09-23 10:47 | NUR ---
Returned call to patient's sister Colleen Chapa [phone], no answer, [facility]
[2020-09-23] MEDS: VALPROIC ACID 250 MG/5 ML UDC GT SCH ×2 (11:00→23:50)
--- NOTE | 2020-09-23 15:10 | NUR ---
Returned call to patient's sister Colleen Chapa [phone], updated reguarding care and status
[2020-09-23] MEDS: hePARIN / DEXT 5% PREMIX 250 ML IV SCH (15:18)
--- NOTE | 2020-09-23 16:53 | NUR ---
Receiving Glucerna 60cc/hr via g-tube, HOB elevated. Respeven and unlabored, O2 at 2l/min NC In NAD, VVS, patient oriented to name only and states yes to knowing she is in the hospital.
--- NOTE | 2020-09-23 19:50 | NUR ---
PT IS IN SEMI-FOWLERS POSITION. BED IS LOCKED AND IN LOWEST POSITION. PT IS RESTING AT THIS TIME. FLUIDS ARE RUNNING PER MD ORDERS. SIDE RAILSX2 FOR PT PROTECTION DUE TO PMH OF SEIZURES. PT IS CONNECTED TO THE DIRECTOR TELECOMMUNICATIONS AND SATURATING AT 98% ON 2L NC. WILL CONTINUE TO MONITOR.
--- NOTE | 2020-09-23 19:50 | NUR ---
Detailed report given to LEO Clayton for entry level manufacturing engineer. Questions answered, meds and orders reviewed.
--- NOTE | 2020-09-23 20:00 | NUR ---
CALLED AFTER HOURS PHARMACY AND SPOKE WITH MASOUD, PHARMACIST REGARDING PTT VALUE AND REQUIRED BOLUS AND INCREASED UNITS PER HEPARIN PROTOCOL. CONFIRMED BOLUS OF 6000 UNITS AND INCREASED UNITS/HR TO 1600.
--- NOTE | 2020-09-23 21:50 | NUR ---
PT IS IN SEMI-FOWLERS POSITION. BED IS LOCKED AND IN LOWEST POSITION. PT IS RESTING AT THIS TIME. FLUIDS ARE RUNNING PER MD ORDERS. SIDE RAILSX2 FOR PT PROTECTION DUE TO PMH OF SEIZURES. PT IS CONNECTED TO THE INSPECTION MACHINE TENDER AND SATURATING AT 99% ON 2L NC. WILL CONTINUE TO MONITOR.
--- NOTE | 2020-09-23 22:04 | NUR ---
CALLED HISTOPATHOLOGIST TO BRING MEDICATIONS
[2020-09-23] MEDS: LATANOPROST 0.005% OP 2.5 ML BTL OP SCH (22:31)
--- NOTE | 2020-09-23 23:03 | NUR ---
CALLED MEMBERSHIP DIRECTOR AGAIN TO BRING TAD OBRIEN AND DEPAKENE
[2020-09-23] MEDS: DOCUSATE 100 MG/10 ML UDC GT SCH (23:50)
--- NOTE | 2020-09-23 23:50 | NUR ---
PT IS RESTING IN SEMI-FOWLERS POSITION. VISIBLE RISE AND FALL OF CHEST NOTED. BED IS LOCKED AND IN LOWEST POSITION. PT IS RESTING AT THIS TIME. FLUIDS ARE RUNNING PER MD ORDERS. SIDE RAILSX2 FOR PT PROTECTION DUE TO PMH OF SEIZURES. PT IS CONNECTED TO THE FRUIT FARMER AND SATURATING AT 98% ON 2L NC. WILL CONTINUE TO MONITOR.
[2020-09-23] MEDS: SIMVASTATIN 20 MG TAB GT SCH (23:51)
[2020-09-24] MEDS ORDERED: PIPERACILLIN/TAZOBACTAM 3.375 GM VIAL IV ONE ×2 (00:38→05:22)
[2020-09-24] MEDS: PIPERACILLIN/TAZOBACTAM 3.375 GM in DEXTROSE 5% 50 ML IV SCH ×4 (00:50→18:00)
[2020-09-24] MEDS: NACL 0.9% 1,000 ML IV SCH ×3 (00:51→14:46)
--- NOTE | 2020-09-24 01:50 | NUR ---
PT IS ASLEEP VISIBLE RISE AND FALL OF CHEST NOTED. BED IS POSITIONED IN SEMI-FOWLERS POSITION. BED IS LOCKED AND IN LOWEST POSITION. PT IS RESTING AT THIS TIME. FLUIDS ARE RUNNING PER MD ORDERS. SIDE RAILSX2 FOR PT PROTECTION DUE TO PMH OF SEIZURES. PT IS CONNECTED TO THE MEDICAL ECONOMICS CONSULTANT AND SATURATING AT 98% ON 2L NC. WILL CONTINUE TO MONITOR.
--- NOTE | 2020-09-24 02:45 | NUR ---
CALLED AFTER HOURS PHARMACY & SPOKE WITH YESSENIA TO VERIFY MED ORDERS
--- NOTE | 2020-09-24 02:50 | NUR ---
YESSENIA FROM AFTER HOURS PHARMACY STATED NO MEDS NEED TO BE VERIFIED AT THIS TIME.
--- NOTE | 2020-09-24 03:12 | NUR ---
LAB AT BEDSIDE
--- NOTE | 2020-09-24 03:45 | NUR ---
PT IS ASLEEP VISIBLE RISE AND FALL OF CHEST NOTED. BED IS POSITIONED IN SEMI-FOWLERS POSITION. BED IS LOCKED AND IN LOWEST POSITION. PT IS RESTING AT THIS TIME. FLUIDS ARE RUNNING PER MD ORDERS. SIDE RAILSX2 FOR PT PROTECTION DUE TO PMH OF SEIZURES. PT IS CONNECTED TO THE WINDER OPERATOR AND SATURATING AT 100% ON 2L NC. WILL CONTINUE TO MONITOR.
--- NOTE | 2020-09-24 04:53 | NUR ---
CALLED LAB TO FIND OUT WHAT THE CURRENT APTT IS BECAUSE IT CURRENTLY SAYS PENDING. FABRICS AND MATERIAL CUTTER STATED SHE WILL CALL ME BACK, SHE NEEDED TO "REPEAT THE LAB".
--- NOTE | 2020-09-24 05:08 | NUR ---
HEPARIN GTT HELD FOR ONE HR PER PROTOCOL DUE TO APTT>150.
--- NOTE | 2020-09-24 05:30 | NUR ---
NOTIFIED DRAINAGE INSPECTOR MD-- OF CRITICAL LAB VALUE APPT >150
--- NOTE | 2020-09-24 06:08 | NUR ---
HEPARIN RESTARTED AND REDUCED TO 1400 UNITS/HR PER HEPARIN PROTOCOL DUE TO APTT>150
--- NOTE | 2020-09-24 06:20 | NUR ---
DAVE-CARE PROVIDED AND BED LINENS CHANGED. PT HAS BROWN LOOSE WATERY STOOL. BED IS LOCKED AND IN LOWEST POSITION. PT IS CONNECTED TO THE ANALYTICAL LABORATORY TECHNICIAN. SAO2@98%. SIDE RAILS X2 DUE TO PMH OF SEIZURES FOR PT PROTECTION. HEPARIN AND NS RUNNING PER MD ORDER. WILL CONTINUE TO MONITOR.
--- NOTE | 2020-09-24 07:20 | NUR ---
REPORT GIVEN TO LEO THOMPSON FOR TRANSFER OF CARE. PT IS AWAKE. BED IS LOCKED AND IN LOWEST POSITION. PT IS CONNECTED TO THE ENVIRONMENTAL STUDIES PROGRAM DIRECTOR. SAO2@98%. SIDE RAILS X2 DUE TO PMH OF SEIZURES FOR PT PROTECTION. HEPARIN AND NS RUNNING PER MD ORDER. WILL CONTINUE TO MONITOR.
[2020-09-24] MEDS: VALPROIC ACID 250 MG/5 ML UDC GT SCH ×2 (09:00→21:00)
[2020-09-24] MEDS: ASCORBIC ACID 500 MG TAB GT SCH ×2 (09:00→21:00)
[2020-09-24] MEDS: DOCUSATE 100 MG/10 ML UDC GT SCH ×2 (09:00→21:00)
[2020-09-24 10:15] LABS: BASOPHILS # (AUTO) 0.1 K/uL (0.00-0.22); BASOPHILS % (AUTO) 0.4 % (0.0-2.0); EOSINOPHILS % (AUTO) 0.3 % (0.0-4.0); HEMATOCRIT 38.7 % (36-48); HEMOGLOBIN 11.7 g/dL (12.0-16.0); LYMPHOCYTES # (AUTO) 1.2 K/uL (2.5-16.5); MEAN CORPUSCULAR HEMOGLOBIN 25 pg (27-31); MEAN CORPUSCULAR HGB CONC 30 g/dL (33-37); MEAN CORPUSCULAR VOLUME 82.5 fL (80-94); MONOCYTES # (AUTO) 0.6 K/uL (0.8-1.0); MONOCYTES % (AUTO) 3.9 % (1.7-9.3); NEUTROPHILS # (AUTO) 14.7 K/uL (1.8-7.7); NEUTROPHILS % (AUTO) 88.4 % (42.2-75.2); PLATELET COUNT (AUTO) 196 K/uL (140-450); RED BLOOD CELL COUNT(AUTO) 4.69 MIL/uL (4.20-5.40); WHITE BLOOD COUNT (AUTO) 16.6 K/uL (4.8-10.8)
[2020-09-24] MEDS: TAMSULOSIN 0.4 MG CAP GT SCH (10:23)
[2020-09-24] MEDS: metFORMIN 500 MG TAB GT SCH ×2 (10:23→21:00)
[2020-09-24] MEDS: levETIRAcetam 100 MG/ML ORASYR GT SCH ×2 (10:23→21:00)
[2020-09-24] MEDS: FAMOTIDINE 20 MG TAB GT SCH (10:23)
[2020-09-24] MEDS: FLUTICASONE NASAL 50 MCG/ACTUATION 16 GM BTL NS SCH (10:24)
[2020-09-24] MEDS ORDERED: CRUSHER, PILL MC ONE ×2 (10:26→23:33)
[2020-09-24 10:33] LABS: ANION GAP 19.2 (8-16); CARBON DIOXIDE 22.8 mmol/L (21-32); CREATININE 1.2 mg/dL (0.6-1.3)
--- NOTE | 2020-09-24 13:34 | NUR ---
PT LAYING IN BED ASLEEP, RR EVEN AND UNLABORED. NO NEW CONCERNS AT THIS TIME. ALL NEEDS MET. Addendum: 09/24/20 at 1335 by [facility] PT LAYING IN BED ASLEEP, RR EVEN AND UNLABORED. NO NEW CONCERNS AT THIS TIME. ALL NEEDS MET. BED LOCKED AND IN LOWEST POSITION, SIDE RAIL UPX2.
--- NOTE | 2020-09-24 14:15 | NUR ---
NOTIFIED DR. FLORES ON PATIENT'S CRITICAL LAB VALUE: PTT 49.5 NO NEW ORDERS GIVEN.
--- NOTE | 2020-09-24 15:29 | NUR ---
PT ASLEEP IN BED, HOB ELEVATED. MAINTENANCE FLUID RUNNING ORDERED. RR EVEN AND UN LABORED. NO NEW CONCERNS AT THIS TIME. BED LOCKED AND IN LOWEST POSITION. ALL NEEDS MET.
--- NOTE | 2020-09-24 17:36 | NUR ---
LAB AT BEDSIDE.
--- NOTE | 2020-09-24 19:13 | NUR ---
REPORT GIVEN TO LEO MILLAN FOR CONTINUITY OF CARE.
--- NOTE | 2020-09-24 19:14 | NUR ---
REPORT RECEIVED FROM LEO RICE FOR CONTINUATION OF CARE.
--- NOTE | 2020-09-24 20:30 | NUR ---
pt resting in bed, locked and in lowest position, HOB elevated, side rail x2 for pt safety. VSS. No acute distress noted.
[2020-09-24] MEDS: LATANOPROST 0.005% OP 2.5 ML BTL OP SCH (21:00)
[2020-09-24] MEDS: SIMVASTATIN 20 MG TAB GT SCH (21:00)
--- NOTE | 2020-09-24 22:50 | NUR ---
Visible rise and fall of chest. RR even and unlabored. VSS. No acute distress.
[2020-09-24] MEDS ORDERED: DIVALPROEX 500 MG TABEC PO ONE (22:59)
[2020-09-24] MEDS ORDERED: levETIRAcetam 500 MG TAB ONE (23:00)
[2020-09-25] MEDS ORDERED: PIPERACILLIN/TAZOBACTAM 3.375 GM VIAL IV ONE ×3 (00:05→18:19)
[2020-09-25] MEDS: PIPERACILLIN/TAZOBACTAM 3.375 GM in DEXTROSE 5% 50 ML IV SCH ×4 (00:19→18:20)
--- NOTE | 2020-09-25 00:35 | NUR ---
Pt resting in bed, locked and in lowest position, HOB elevated, side rail x 2 for pt safety. VSS. NO acute distress.
[2020-09-25] MEDS: NACL 0.9% 1,000 ML IV SCH ×2 (00:49→11:29)
--- NOTE | 2020-09-25 03:33 | NUR ---
RR even and unlabored. No acute distress noted. VSS.
--- NOTE | 2020-09-25 05:32 | NUR ---
PT RESTING IN BED, LOCKED AND IN LOWEST POSITION , HOB ELEVATED, SIDE RAIL X2 FOR PT SAFETY. VSS. NO ACUTE DISTRESS NOTED. PT CURRENTLY ON 2L NC , SAO2 100%.
--- NOTE | 2020-09-25 07:20 | NUR ---
REPORT GIVEN TO LEO ARRIOLA FOR CONTINUATION OF CARE.
--- NOTE | 2020-09-25 07:20 | NUR ---
RECEIVED REPORT FROM HOMERO BAILEY. PT NEUROLOGICAL AT BASE LINE. DIARRHEA. SKIN TEAR AT COCCYX & R ARM.
[2020-09-25 08:45] VITALS: BP 140/74
--- NOTE | 2020-09-25 08:45 | NUR ---
RECEIVED REPORT FROM ED NURSE. PT RESTING IN BED. FLACC 0. RESPIRATIONS EVEN AND UNLABORED WITH NO SOB OR RESPIRATORY DISTRESS. SKIN WARM AND DRY TO TOUCH. IV SITE IN LAC 20G AND R ANKLE 20G IS CLEAN, DRY, AND INTACT. MRSA SWAB COLLECTED. SAFETY MEASURES IN PLACE. WILL CONTINUE TO MONITOR
[2020-09-25] MEDS: levETIRAcetam 100 MG/ML ORASYR GT SCH ×2 (09:00→21:00)
[2020-09-25] MEDS: FAMOTIDINE 20 MG TAB GT SCH (09:00)
[2020-09-25] MEDS: metFORMIN 500 MG TAB GT SCH ×2 (09:00→21:00)
[2020-09-25] MEDS: VALPROIC ACID 250 MG/5 ML UDC GT SCH ×2 (09:00→21:00)
[2020-09-25] MEDS: TAMSULOSIN 0.4 MG CAP GT SCH (09:00)
[2020-09-25] MEDS: FLUTICASONE NASAL 50 MCG/ACTUATION 16 GM BTL NS SCH (09:00)
[2020-09-25] MEDS: DOCUSATE 100 MG/10 ML UDC GT SCH ×2 (09:00→21:00)
[2020-09-25] MEDS: ASCORBIC ACID 500 MG TAB GT SCH ×2 (09:00→21:00)
--- NOTE | 2020-09-25 09:00 | NUR ---
Patient will be admitted to care of DR LOUIS. Admited to TELE. Will go to room 111A. Belongings list completed. Report to ODALYS BAILEY.
--- NOTE | 2020-09-25 10:59 | NUR ---
ADMINISTERED SCHED MED PRESCRIBED PER MD ORDER. PT TOLERATED WELL. MEDICATION EDUCATION PERFORMED. PT CONFUSED AND UNABLE TO VERBALIZED UNDERSTANDING. SAFETY MEASURES IN PLACE. WILL CONTINUE TO MONITOR
[2020-09-25 11:02] LABS: BASOPHILS % (AUTO) 0.4 % (0.0-2.0); EOSINOPHILS % (AUTO) 0.2 % (0.0-4.0); HEMOGLOBIN 9.7 g/dL (12.0-16.0); LYMPHOCYTES # (AUTO) 1.1 K/uL (2.5-16.5); LYMPHOCYTES % (AUTO) 15.1 % (20.5-51.1); MEAN CORPUSCULAR HEMOGLOBIN 26 pg (27-31); MEAN CORPUSCULAR HGB CONC 31 g/dL (33-37); MEAN CORPUSCULAR VOLUME 81.7 fL (80-94); MONOCYTES # (AUTO) 0.4 K/uL (0.8-1.0); MONOCYTES % (AUTO) 5.7 % (1.7-9.3); NEUTROPHILS # (AUTO) 5.8 K/uL (1.8-7.7); NEUTROPHILS % (AUTO) 78.6 % (42.2-75.2); PLATELET COUNT (AUTO) 183 K/uL (140-450); RED BLOOD CELL COUNT(AUTO) 3.79 MIL/uL (4.20-5.40); WHITE BLOOD COUNT (AUTO) 7.4 K/uL (4.8-10.8)
[2020-09-25 11:17] LABS: ANION GAP 14.9 (8-16); CARBON DIOXIDE 24.9 mmol/L (21-32); CREATININE 0.9 mg/dL (0.6-1.3)
[2020-09-25 11:29] LABS: POTASSIUM 2.8 mmol/L (3.5-5.1)
[2020-09-25 11:35] LABS: MAGNESIUM 2.2 mg/dL (1.8-2.4); PHOSPHORUS 2.7 mg/dL (2.5-4.9)
[2020-09-25] MEDS: DEXTROSE 5% 1,000 ML IV SCH ×2 (11:45→21:32)
[2020-09-25 12:00] VITALS: BP 111/51
[2020-09-25] MEDS ORDERED: KCL 20 MEQ/WATER INJ PREMIX 200 ML IV SCH (12:00)
--- NOTE | 2020-09-25 15:30 | NUR ---
STARTED G-TUBE FEEDING PRESCRIBED PER MD ORDER. PT TOLERATED WELL. NO SIGNS OF DISTRESS NOTED. SAFETY MEASURES IN PLACE. WILL CONTINUE TO MONITOR
[2020-09-25 16:00] VITALS: BP 131/49
--- NOTE | 2020-09-25 16:00 | NUR ---
OBTAINED PICTURES OF PATIENTS WOUNDS AND PLACED IN CHART. PT TOLERATED WELL. SAFETY MEASURES IN PLACE. WILL CONTINUE TO MONITOR
--- NOTE | 2020-09-25 17:39 | NUR ---
09/25/20 RD FOLLOW UP COMPLETED. PLEASE REFER TO NUTRITION ASSESSMENT UNDER CARE ACTIVITY FOR ESTIMATED NUTRITIONAL NEEDS. 1.CONTINUE GLUCERNA 1.2 @ 60 ML/HR. THIS IS PROVIDING 1728 KCALS AND 86 GM PRO/DAY. THIS IS MEETING 100% ESTIMATED ENERGY AND PROTEIN NEEDS PER DAY 2. RECOMMEND WATER FLUSH OF [address] TO FOLLOW-UP IN 3-5 DAYS PATIENT IS MODERATE RISK. TONY BOOTH RD
--- NOTE | 2020-09-25 19:35 | NUR ---
ENDORSED TO NIGHTSHIFT FOR CONTINUITY OF CARE. PT IS STABLE
--- NOTE | 2020-09-25 19:35 | NUR ---
PT IN BED RESTING WITH EYES CLOSED, NEW BAG OF D5 HUNG, PT IS AOX2-3. PT HAS NO C/O VOICED. RECEIVED REPORT FORM DAYSHIFT NURSE AT BEDSIDE FOR CONTINUITY OF CARE, PT IN STABLE CONDITION.
[2020-09-25 20:00] VITALS: BP 139/71
[2020-09-25] MEDS: LATANOPROST 0.005% OP 2.5 ML BTL OP SCH (21:00)
[2020-09-25] MEDS: SIMVASTATIN 20 MG TAB GT SCH (21:00)
[2020-09-25] MEDS: APIXABAN 2.5 MG TAB PO SCH (21:00)
--- NOTE | 2020-09-25 21:45 | NUR ---
PT IN BED RESTING WITH EYES CLOSED, NO S/S OF PAIN OR DISTRESS NOTED. PT WAS TURNED, CHANGED AND REPOSITIONED IN BED. PT GIVEN ALL DUE MEDS VIA GT. GT INTACT NO RESIDUAL NOTED. ALL ORDERED PRECAUTIONS IN PLACE.
[2020-09-26] VITALS: BP 130/66
--- NOTE | 2020-09-26 | NUR ---
PT IN BED RESTING WITH EYES CLOSED. V/S FOLLOWS: T 97.0 P 98 R 20 B/P 139/71 02 99% ON ROOM AIR. PT TURNED AND REPOSITIONED IN BED, NO S/S OF PAIN OR DISTRESS NOTED. PT HAS IV SITE LAC 20 G RUNNING D5 ORDERED. PT ALSO HAS GLUCERNA 1.2 AT 60MLS/HR. NO RESIDUAL NOTED. ALL ORDERED PRECAUTIONS IN PLACE.
[2020-09-26 04:00] VITALS: BP 126/62
[2020-09-26] MEDS: DEXTROSE 5% 1,000 ML IV SCH ×3 (05:37→21:32)
--- NOTE | 2020-09-26 07:26 | NUR ---
PT IN BED SHE WAS TURNED, CHANGED AND REPOSITIONED IN BED. MARROQUIN CATHETER IN PLACE AND DRAINED 500MLS. TUBE FEED HELD AT THIS TIME DUE TO 40MLS OF RESIDUAL. NO S/S OF PAIN OR DISTRESS NOTED. ALL ORDERED PRECAUTIONS IN PLACE. .
--- NOTE | 2020-09-26 07:30 | NUR ---
RECEIVED PT AWAKE. NO SOB NOTED, ON ROOM AIR. NO C/O PAIN AT THIS TIME. INSTRUCTED TO CALL FOR ASSISTANCE, CALL LIGHT WITHIN REACH, VERBALIZED UNDERSTANDING.
[2020-09-26 07:32] LABS: BASOPHILS % (AUTO) 0.4 % (0.0-2.0); EOSINOPHILS % (AUTO) 0.2 % (0.0-4.0); HEMATOCRIT 31.5 % (36-48); HEMOGLOBIN 9.7 g/dL (12.0-16.0); LYMPHOCYTES # (AUTO) 1.1 K/uL (2.5-16.5); LYMPHOCYTES % (AUTO) 14.5 % (20.5-51.1); MEAN CORPUSCULAR HEMOGLOBIN 25 pg (27-31); MEAN CORPUSCULAR HGB CONC 31 g/dL (33-37); MEAN CORPUSCULAR VOLUME 82.3 fL (80-94); MONOCYTES # (AUTO) 0.4 K/uL (0.8-1.0); MONOCYTES % (AUTO) 6.1 % (1.7-9.3); NEUTROPHILS # (AUTO) 5.8 K/uL (1.8-7.7); NEUTROPHILS % (AUTO) 78.8 % (42.2-75.2); PLATELET COUNT (AUTO) 171 K/uL (140-450); RED BLOOD CELL COUNT(AUTO) 3.83 MIL/uL (4.20-5.40); RED CELL DISTRIBUTION WIDTH 21.1 % (11.6-13.7); WHITE BLOOD COUNT (AUTO) 7.3 K/uL (4.8-10.8)
[2020-09-26 07:56] LABS: MAGNESIUM 2.4 mg/dL (1.8-2.4); PHOSPHORUS 2.2 mg/dL (2.5-4.9)
[2020-09-26 08:00] VITALS: BP 145/65
[2020-09-26] MEDS: DOCUSATE 100 MG/10 ML UDC GT SCH ×2 (09:00→20:43)
[2020-09-26 09:17] LABS: ANION GAP 18.3 (8-16); CARBON DIOXIDE 21.6 mmol/L (21-32); CREATININE 1.1 mg/dL (0.6-1.3)
[2020-09-26] MEDS: APIXABAN 2.5 MG TAB PO SCH ×2 (10:35→20:32)
[2020-09-26] MEDS: ASCORBIC ACID 500 MG TAB GT SCH ×2 (10:35→20:27)
[2020-09-26] MEDS: FAMOTIDINE 20 MG TAB GT SCH (10:36)
[2020-09-26] MEDS: metFORMIN 500 MG TAB GT SCH ×2 (10:36→20:30)
[2020-09-26] MEDS: TAMSULOSIN 0.4 MG CAP GT SCH (10:36)
[2020-09-26] MEDS: VALPROIC ACID 250 MG/5 ML UDC GT SCH ×2 (10:37→20:31)
[2020-09-26] MEDS: levETIRAcetam 100 MG/ML ORASYR GT SCH ×2 (10:37→20:31)
[2020-09-26] MEDS: FLUTICASONE NASAL 50 MCG/ACTUATION 16 GM BTL NS SCH (10:38)
[2020-09-26 10:39] LABS: POTASSIUM 2.9 mmol/L (3.5-5.1)
--- NOTE | 2020-09-26 13:00 | NUR ---
PT HAD BMX 2, PERICARE DONE. WOUND CARE DONE.
[2020-09-26 16:00] VITALS: BP 145/73
--- NOTE | 2020-09-26 19:20 | NUR ---
PT RESTING. NO SOB NOTED. NO SIGNS OF PAIN AT THIS TIME. ENDORSED TO NEXT SHIFT NURSE FOR CONTINUITY OF CARE.
--- NOTE | 2020-09-26 19:30 | NUR ---
RECEIVED PT IN STABLE CONDITION FROM AM NURSE. AWAKE, ALERT BUT WITH CONFUSION. MED SURG PT. WITH NO S/S OF ANY DISCOMFORT NOR DISTRESS NOTED. BEDREST. IVF INFUSING WELL ON THE LT AC G#200. FREQ ROUNDS NEEDED. BED ON LOW POSITION. SIDE RAILS UP X2. CALL LIGHT PLACED WITHIN REACH. MARROQUIN CATHETER IN PLACED. WILL CONTINUE TO MONITOR.
[2020-09-26 20:00] VITALS: BP 127/66
[2020-09-26] MEDS ORDERED: POTASSIUM CHLORIDE 40 MEQ, LIDOCAINE MPF 1% 25 MG in NACL 0.9% 250 ML IV SCH (20:00)
[2020-09-26] MEDS: SIMVASTATIN 20 MG TAB GT SCH (20:30)
[2020-09-26] MEDS: LATANOPROST 0.005% OP 2.5 ML BTL OP SCH (21:00)
--- NOTE | 2020-09-27 | NUR ---
GT FLUSHED WITH WATER. .
--- NOTE | 2020-09-27 02:00 | NUR ---
PT HAS BEEN REPOSITIONED FOR COMFORT .
[2020-09-27] MEDS: DEXTROSE 5% 1,000 ML IV SCH ×2 (03:32→13:29)
[2020-09-27 04:00] VITALS: BP 134/68
--- NOTE | 2020-09-27 05:00 | NUR ---
SACRAL DRESSING CHANGED. WITH MINIMAL SEROSANGUINEOUS DRAINAGE.
[2020-09-27 06:07] LABS: LD1 FRACTION 24 % (17-32); LD2 FRACTION 40 % (25-40); LD3 FRACTION 20 % (17-27); LD4 FRACTION 8 % (5-13); LD5 FRACTION 8 % (4-20)
--- NOTE | 2020-09-27 07:30 | NUR ---
ENDORSED PT IN STABLE CONDITION TO AM NURSE.
--- NOTE | 2020-09-27 07:32 | NUR ---
RECEIVED REPORT FROM NIGHT NURSE PATIENT IS AAOX3 ON 2LPM OXYGEN VIA NC ON TUBE FEEDING GLUCERNA 60 AT 150WATERFLUSH Q4H, ON MARROQUIN CATHETER SKIN NON INTACT ON SACRAL WOUND, IV INTACT ON LEFT AC AND RIGHT ANKLE, WITH MARROQUIN CATHETER, K RIDER GIVEN LAST NIGHT, SAFETY MEASURES IN PLACE AND CALL LIGHT WITHIN REACH.WILL CONTINUE TO MONITOR.
[2020-09-27 08:00] VITALS: BP 139/69
[2020-09-27 09:18] LABS: BASOPHILS # (AUTO) 0.1 K/uL (0.00-0.22); BASOPHILS % (AUTO) 1.1 % (0.0-2.0); EOSINOPHILS % (AUTO) 0.1 % (0.0-4.0); HEMATOCRIT 28.6 % (36-48); LYMPHOCYTES # (AUTO) 1.5 K/uL (2.5-16.5); LYMPHOCYTES % (AUTO) 23.6 % (20.5-51.1); MEAN CORPUSCULAR HEMOGLOBIN 26 pg (27-31); MEAN CORPUSCULAR HGB CONC 31 g/dL (33-37); MEAN CORPUSCULAR VOLUME 81.9 fL (80-94); MONOCYTES # (AUTO) 0.4 K/uL (0.8-1.0); MONOCYTES % (AUTO) 6.4 % (1.7-9.3); NEUTROPHILS # (AUTO) 4.3 K/uL (1.8-7.7); NEUTROPHILS % (AUTO) 68.8 % (42.2-75.2); PLATELET COUNT (AUTO) 156 K/uL (140-450); RED CELL DISTRIBUTION WIDTH 20.9 % (11.6-13.7); WHITE BLOOD COUNT (AUTO) 6.3 K/uL (4.8-10.8)
[2020-09-27 09:47] LABS: MAGNESIUM 2.1 mg/dL (1.8-2.4); PHOSPHORUS 2.1 mg/dL (2.5-4.9)
[2020-09-27] MEDS: VALPROIC ACID 250 MG/5 ML UDC GT SCH (10:30)
[2020-09-27] MEDS: TAMSULOSIN 0.4 MG CAP GT SCH (10:31)
[2020-09-27] MEDS: DOCUSATE 100 MG/10 ML UDC GT SCH (10:31)
[2020-09-27] MEDS: FAMOTIDINE 20 MG TAB GT SCH (10:31)
[2020-09-27] MEDS: levETIRAcetam 100 MG/ML ORASYR GT SCH (10:31)
--- NOTE | 2020-09-27 10:31 | NUR ---
MEDICATION GIVEN, CHECK VITAL SIGNS PRIOR TO MEDICATION BP 139/69 DE 91, NO RESIDUALS TUBE FEEDING PATENT AND INTACT, CHANGED FEEDING GLUCERNA AT 60 AND 100 WATERFLUSH Q4H. WATER FLUSH DONE MANUALLY. NO DISTRESS NOTED SAFETY MEASURES IN PLACE AND CALL LIGHT WITHIN REACH.
[2020-09-27] MEDS: ASCORBIC ACID 500 MG TAB GT SCH (10:32)
[2020-09-27] MEDS: metFORMIN 500 MG TAB GT SCH (10:32)
[2020-09-27] MEDS: APIXABAN 2.5 MG TAB PO SCH (10:34)
[2020-09-27] MEDS: FLUTICASONE NASAL 50 MCG/ACTUATION 16 GM BTL NS SCH (10:35)
[2020-09-27 11:19] LABS: POTASSIUM 3.4 mmol/L (3.5-5.1)
[2020-09-27 11:20] LABS: ANION GAP 16.6 (8-16); CARBON DIOXIDE 24.8 mmol/L (21-32); CREATININE 0.9 mg/dL (0.6-1.3)
[2020-09-27 12:00] VITALS: BP 143/75
--- NOTE | 2020-09-27 12:00 | NUR ---
CHANGED TUBE FEEDING GLUCVERNA AT 60 AND 150 WATERFLUSH Q4H.
[2020-09-27] MEDS ORDERED: APIX5TAB PO (14:01)
--- NOTE | 2020-09-27 14:30 | NUR ---
CHANGED IV FLUIDS OF NS 0.45% AT 75CC INFUSING WELL
--- NOTE | 2020-09-27 15:00 | NUR ---
PATIENT IS BEING TRANSFERRED BACK TO [facility] [place] FOR CONTINUITY OF CARE.
[2020-09-27] MEDS ORDERED: NACL 0.45% 500 ML IV SCH ×2 (15:30→15:39)
[2020-09-27] MEDS ORDERED: NACL 0.45% 1,000 ML IV SCH (15:40)
[2020-09-27 16:00] VITALS: BP 122/74
--- NOTE | 2020-09-27 17:31 | NUR ---
CALLED [facility] AND GAVE REPORT TO NURSE DANIEL FOR UPDATES AND PATIENT PLAN OF CARE.
--- NOTE | 2020-09-27 19:20 | NUR ---
RECEIVED BEDSIDE REPORT FROM DAY SHIFT NURSE FOR CONTINUITY OF CARE. PT IS AWAKE, LAYING IN SEMI FOWLERS POSITION. ON RA WITH BREATHING UNLABORED. G TUBE IN PLACE RUNNING G TUBE FEEDING. SKIN IS WARM AND DRY. IV IS IN THE RIGHT ANKLE 20 GAUGE AND LEFT AC 20 GAUGE RUNNING NS AT 75 ML PER HOUR. NO DISTRESS NOTED. PT IS STABLE. PLAN OF CARE DISCUSSED. PT IS TO BE D/C SHORTLY, TRANSPORT IS ON THE WAY.
--- NOTE | 2020-09-27 19:45 | NUR ---
PT HAS BEEN D/C WITH TRANSPORT ON [facility]. G TUBE FEEDING LINE REMOVED AND WRISTBAND REMOVED. PT IS STABLE. ON RA WITH BREATHING UNLABORED. NO SIGNS OF DISTRESS NOTED. REPORT GIVEN BY MADDIE BAILEY, DAY SHIFT NURSE TO [facility] PLANNING AND ANALYSIS MANAGER. PT UNABLE TO SIGN PAPERWORK, COSIGNED BY ANOTHER NURSE.
--- NOTE | 2020-09-27 19:46 | NUR ---
ENDORSED TO NIGHT NURSE FOR CONTINUITY OF CARE.
== END 2020-09-27 19:45 | DRG 871 ==
LOC: MED 16:39 → UNDOADMIN 09-21 02:09 → MTU 09-21 02:09 → MMU 09-25 08:32 → MTU 09-25 09:12
PROVIDERS: ADMIT Family Medicine; ATTEND Family Medicine
DX: A41.9 Sepsis, unspecified organism (principal); J69.0 Pneumonitis due to inhalation of food and vomit; J96.20 Acute and chronic respiratory failure, unspecified whether with hypoxia or hypercapnia; I26.99 Other pulmonary embolism without acute cor pulmonale; G93.41 Metabolic encephalopathy; J44.1 Chronic obstructive pulmonary disease with (acute) exacerbation; E87.0 Hyperosmolality and hypernatremia; Z66 Do not resuscitate; E11.9 Type 2 diabetes mellitus without complications; E66.01 Morbid (severe) obesity due to excess calories; F03.90 Unspecified dementia, unspecified severity, without behavioral disturbance, psychotic disturbance, mood disturbance, and anxiety; G40.909 Epilepsy, unspecified, not intractable, without status epilepticus; K21.9 Gastro-esophageal reflux disease without esophagitis; R13.10 Dysphagia, unspecified; Y95 Nosocomial condition; Z20.828 Contact with and (suspected) exposure to other viral communicable diseases; E05.90 Thyrotoxicosis, unspecified without thyrotoxic crisis or storm; E87.6 Hypokalemia; E86.1 Hypovolemia; Z85.850 Personal history of malignant neoplasm of thyroid; Z86.74 Personal history of sudden cardiac arrest; Z79.899 Other long term (current) drug therapy; Z93.1 Gastrostomy status; Z68.36 Body mass index [BMI] 36.0-36.9, adult
CPT/HCPCS: 36415; 36600; 71045; 71275; 80048; 80053; 80305; 81001; 82150; 82728; 82803; 83036; 83605; 83625; 83690; 83735; 83880; 84100; 84439; 84443; 84484; 85025; 85379; 85384; 85610; 85730; 86140; 87040; 87081; 96372; 99291; 99292; J0696; J1100; J1644; J2001; J2543; J3480; J7030; J7060; Q9967; U0003

== ENCOUNTER 2020-11-06 09:50 | Inpatient (IN) | payer OTHER, MEDICAID, SELFPAY ==
[~2020-11-06] VITALS: Ht 167.6 cm; Wt 85.7 kg
[~2020-11-06 09:50] MED LIST changes: +APIX5TAB PO; +ONDA4TAB PO; +ZINC220C28 PO
[2020-11-06] MEDS ORDERED: NACL 0.9% 500 ML IV ONE (10:00)
[2020-11-06] MEDS ORDERED: ACETAMINOPHEN 650 MG SUPP RC ONE (10:00)
[2020-11-06 10:16] VITALS: BP 110/68
[2020-11-06 10:33] LABS: BASOPHILS % (AUTO) 0.3 % (0.0-2.0); HEMATOCRIT 37.4 % (36-48); HEMOGLOBIN 11.5 g/dL (12.0-16.0); LYMPHOCYTES # (AUTO) 2.7 K/uL (2.5-16.5); LYMPHOCYTES % (AUTO) 19.4 % (20.5-51.1); MEAN CORPUSCULAR HEMOGLOBIN 26 pg (27-31); MEAN CORPUSCULAR HGB CONC 31 g/dL (33-37); MEAN CORPUSCULAR VOLUME 85.1 fL (80-94); MONOCYTES # (AUTO) 1.7 K/uL (0.8-1.0); MONOCYTES % (AUTO) 12.3 % (1.7-9.3); NEUTROPHILS # (AUTO) 9.4 K/uL (1.8-7.7); PLATELET COUNT (AUTO) 398 K/uL (140-450); RED BLOOD CELL COUNT(AUTO) 4.39 MIL/uL (4.20-5.40); RED CELL DISTRIBUTION WIDTH 22.1 % (11.6-13.7); WHITE BLOOD COUNT (AUTO) 13.8 K/uL (4.8-10.8)
[2020-11-06 10:44] LABS: C-REACTIVE PROTEIN QUANT 1.7 mg/dL (0.0-0.9)
[2020-11-06 10:48] LABS: PROTHROMBIN TIME 10.6 secs (10.8-13.4)
[2020-11-06 10:50] LABS: LACTATE DEHYDROGENASE 236 U/L (81-234)
[2020-11-06 10:51] LABS: ALBUMIN 2.6 g/dL (3.4-5.0); ANION GAP 12.8 (8-16); CARBON DIOXIDE 28.7 mmol/L (21-32); CREATININE 1.2 mg/dL (0.6-1.3); POTASSIUM 4.5 mmol/L (3.5-5.1); TOTAL BILIRUBIN 0.3 mg/dL (0.0-1.0)
[2020-11-06 11:42] LABS: APPEARANCE,URINE HAZY (CLEAR); BILIRUBIN,URINE NEGATIVE (NEGATIVE); BLOOD, URINE 2+ (NEGATIVE); COLOR,URINE YELLOW (YELLOW); LEUKOCYTE ESTERASE ,URINE 2+ (NEGATIVE); NITRITE, URINE NEGATIVE (NEGATIVE); UGLUCOSE NEGATIVE (NEGATIVE)
[2020-11-06 11:46] LABS: RSV NEGATIVE (NEGATIVE)
[2020-11-06 11:49] LABS: WBC,URINE 20-60 /HPF (0-5); YEAST,URINE Few /HPF (None Seen)
[2020-11-06] MEDS ORDERED: MEROPENEM 1,000 MG in NACL 0.9% 100 ML IV ONE (12:00)
[2020-11-06] MEDS ORDERED: NACL 0.9% 1,000 ML IV ONE (12:00)
[2020-11-06] MEDS ORDERED: MEROPENEM 1,000 MG VIAL IV ONE (12:06)
[2020-11-06] MEDS ORDERED: DOCUSATE SODIUM 100 MG GELCAP PO PRN (12:30)
[2020-11-06] MEDS ORDERED: ONDANSETRON 4 MG/2 ML VIAL IM/IVP PRN (12:30)
[2020-11-06] MEDS ORDERED: POTASSIUM CHLORIDE 40 MEQ, LIDOCAINE MPF 1% 25 MG in NACL 0.9% 250 ML IV PRN (12:30)
[2020-11-06] MEDS ORDERED: NACL 0.9% 1,000 ML IV SCH (12:30)
[2020-11-06] MEDS ORDERED: HYDROcodone/APAP 5/325 MG 1 TAB TAB PO PRN (12:30)
[2020-11-06] MEDS ORDERED: SODIUM PHOS / POTASSIUM PHOS 1 PKT PDR PO PRN (12:30)
[2020-11-06] MEDS ORDERED: ACETAMINOPHEN 325 MG TAB PO PRN (12:30)
[2020-11-06] MEDS ORDERED: MAG SULF 2000 MG/WATER PREMIX 50 ML IV PRN (12:30)
[2020-11-06] MEDS ORDERED: MORPHINE SULFATE 2 MG/ML SYR IVP PRN (12:30)
[2020-11-06] MEDS ORDERED: DEXTROSE 50% 50 ML SYR IVP PRN (12:35)
[2020-11-06] MEDS ORDERED: NACL 0.45% 1,000 ML IV ONE (12:40)
[2020-11-06 13:04] LABS: PHOSPHORUS 3.5 mg/dL (2.5-4.9)
[2020-11-06 16:00] VITALS: BP 148/61
[2020-11-06] MEDS: BLOOD GLUCOSE MONITORING 1 DEV DEV FS SCH ×2 (17:10→21:28)
[2020-11-06] MEDS ORDERED: VANCOMYCIN PER PHARMACY MC PRN (18:20)
[2020-11-06] MEDS ORDERED: VANCOMYCIN 1GM/DEXT 5% PREMIX 200 ML IV SCH (18:25)
[2020-11-06 20:00] VITALS: BP 133/70
[2020-11-06] MEDS ORDERED: VALPROIC ACID 250 MG/5 ML UDC GT SCH (21:00)
[2020-11-06] MEDS: LATANOPROST 0.005% OP 2.5 ML BTL BOTH EYES SCH (21:00)
[2020-11-06] MEDS ORDERED: MEROPENEM 1,000 MG in NACL 0.9% 100 ML IV SCH (21:00)
[2020-11-06] MEDS ORDERED: VANCOMYCIN 1,000 MG VIAL ONE (22:10)
[2020-11-06] MEDS: levETIRAcetam 100 MG/ML ORASYR GT SCH (22:22)
[2020-11-06] MEDS: metFORMIN 500 MG TAB GT SCH (22:22)
[2020-11-06] MEDS: ASCORBIC ACID 500 MG TAB GT SCH (22:22)
[2020-11-06] MEDS: APIXABAN 2.5 MG TAB PO SCH (22:22)
[2020-11-06] MEDS: SIMVASTATIN 20 MG TAB GT SCH (22:22)
[2020-11-06] MEDS: DOCUSATE 100 MG/10 ML UDC GT SCH (22:30)
[2020-11-06] MEDS: INSULIN LISPRO SLIDING SCALE 100 UNITS/ML VIAL SUBQ PRN (22:39)
[2020-11-06] MEDS ORDERED: CEFEPIME 1,000 MG VIAL ONE (23:53)
[2020-11-06] MEDS: CEFEPIME 1,000 MG in DEXTROSE 5% 50 ML IV SCH (23:57)
[2020-11-07] VITALS: BP 130/70
[2020-11-07 04:00] VITALS: BP 118/60
[2020-11-07] MEDS ORDERED: ALBUTEROL SULFATE/IPRATROPIU 3 ML SOL IH PRN (04:30)
[2020-11-07] MEDS: BLOOD GLUCOSE MONITORING 1 DEV DEV FS SCH ×4 (06:00→21:05)
[2020-11-07 06:21] LABS: BASOPHILS % (AUTO) 0.4 % (0.0-2.0); EOSINOPHILS % (AUTO) 0.3 % (0.0-4.0); HEMATOCRIT 30.9 % (36-48); HEMOGLOBIN 9.6 g/dL (12.0-16.0); LYMPHOCYTES # (AUTO) 1.4 K/uL (2.5-16.5); LYMPHOCYTES % (AUTO) 15.8 % (20.5-51.1); MEAN CORPUSCULAR HEMOGLOBIN 27 pg (27-31); MEAN CORPUSCULAR HGB CONC 31 g/dL (33-37); MEAN CORPUSCULAR VOLUME 87.1 fL (80-94); MONOCYTES # (AUTO) 0.8 K/uL (0.8-1.0); MONOCYTES % (AUTO) 9.5 % (1.7-9.3); NEUTROPHILS # (AUTO) 6.5 K/uL (1.8-7.7); PLATELET COUNT (AUTO) 240 K/uL (140-450); RED BLOOD CELL COUNT(AUTO) 3.55 MIL/uL (4.20-5.40); RED CELL DISTRIBUTION WIDTH 21.4 % (11.6-13.7); WHITE BLOOD COUNT (AUTO) 8.8 K/uL (4.8-10.8)
[2020-11-07 06:53] LABS: ANION GAP 12.7 (8-16); CARBON DIOXIDE 28.2 mmol/L (21-32); CREATININE 0.9 mg/dL (0.6-1.3); POTASSIUM 3.9 mmol/L (3.5-5.1)
[2020-11-07] MEDS: INSULIN LISPRO SLIDING SCALE 100 UNITS/ML VIAL SUBQ PRN ×2 (07:03→12:03)
[2020-11-07 08:00] VITALS: BP 125/66
[2020-11-07] MEDS ORDERED: PANTOPRAZOLE 40 MG INJ VIAL IVP SCH (09:00)
[2020-11-07] MEDS: FAMOTIDINE 20 MG TAB GT SCH (09:21)
[2020-11-07] MEDS: TAMSULOSIN 0.4 MG CAP GT SCH (09:21)
[2020-11-07] MEDS: ZINC SULF 220 MG CAP PO SCH (09:22)
[2020-11-07] MEDS: ASCORBIC ACID 500 MG TAB GT SCH ×2 (09:22→21:07)
[2020-11-07] MEDS: DOCUSATE 100 MG/10 ML UDC GT SCH ×2 (09:22→21:05)
[2020-11-07] MEDS: metFORMIN 500 MG TAB GT SCH ×2 (09:22→21:06)
[2020-11-07] MEDS: levETIRAcetam 100 MG/ML ORASYR GT SCH ×2 (09:23→21:07)
[2020-11-07] MEDS: CEFEPIME 1,000 MG in DEXTROSE 5% 50 ML IV SCH ×2 (09:23→21:07)
[2020-11-07] MEDS: VALPROIC ACID 250 MG/5 ML UDC GT SCH ×3 (09:23→17:38)
[2020-11-07] MEDS: APIXABAN 2.5 MG TAB PO SCH (09:24)
[2020-11-07] MEDS: VANCOMYCIN 500 MG in DEXTROSE 5% 100 ML IV SCH ×2 (10:44→23:00)
[2020-11-07 12:00] VITALS: BP 112/46
[2020-11-07] MEDS: GAUZE TP SCH (14:00)
[2020-11-07] MEDS: THERAHONEY GEL 42.5 GM TP SCH (15:40)
[2020-11-07 16:00] VITALS: BP 120/52
[2020-11-07 20:00] VITALS: BP 115/52
[2020-11-07] MEDS: LATANOPROST 0.005% OP 2.5 ML BTL BOTH EYES SCH (21:00)
[2020-11-07] MEDS: APIXABAN 2.5 MG TAB GT SCH (21:05)
[2020-11-07] MEDS: SIMVASTATIN 20 MG TAB GT SCH (21:07)
[2020-11-08] VITALS: BP 115/52
[2020-11-08 04:00] VITALS: BP 155/55
[2020-11-08] MEDS: BLOOD GLUCOSE MONITORING 1 DEV DEV FS SCH ×4 (06:00→21:55)
[2020-11-08] MEDS: INSULIN LISPRO SLIDING SCALE 100 UNITS/ML VIAL SUBQ PRN ×2 (06:28→11:33)
[2020-11-08 07:58] LABS: BASOPHILS % (AUTO) 0.2 % (0.0-2.0); EOSINOPHILS % (AUTO) 0.1 % (0.0-4.0); HEMATOCRIT 28.8 % (36-48); HEMOGLOBIN 8.9 g/dL (12.0-16.0); LYMPHOCYTES % (AUTO) 12.8 % (20.5-51.1); MEAN CORPUSCULAR HEMOGLOBIN 27 pg (27-31); MEAN CORPUSCULAR HGB CONC 31 g/dL (33-37); MEAN CORPUSCULAR VOLUME 87.1 fL (80-94); MONOCYTES # (AUTO) 0.5 K/uL (0.8-1.0); MONOCYTES % (AUTO) 6.7 % (1.7-9.3); NEUTROPHILS # (AUTO) 6.2 K/uL (1.8-7.7); NEUTROPHILS % (AUTO) 80.2 % (42.2-75.2); PLATELET COUNT (AUTO) 199 K/uL (140-450); RED BLOOD CELL COUNT(AUTO) 3.31 MIL/uL (4.20-5.40); RED CELL DISTRIBUTION WIDTH 21.8 % (11.6-13.7); WHITE BLOOD COUNT (AUTO) 7.8 K/uL (4.8-10.8)
[2020-11-08 08:00] VITALS: BP 107/61
[2020-11-08 08:00] LABS: ANION GAP 12.1 (8-16); CREATININE 0.8 mg/dL (0.6-1.3); POTASSIUM 4.1 mmol/L (3.5-5.1)
[2020-11-08] MEDS: VALPROIC ACID 250 MG/5 ML UDC GT SCH ×3 (09:35→16:44)
[2020-11-08] MEDS: ZINC SULF 220 MG CAP PO SCH (09:37)
[2020-11-08] MEDS: DOCUSATE 100 MG/10 ML UDC GT SCH ×2 (09:38→21:50)
[2020-11-08] MEDS: APIXABAN 2.5 MG TAB GT SCH ×2 (09:38→21:55)
[2020-11-08] MEDS: metFORMIN 500 MG TAB GT SCH ×2 (09:38→21:51)
[2020-11-08] MEDS: FAMOTIDINE 20 MG TAB GT SCH (09:39)
[2020-11-08] MEDS: levETIRAcetam 100 MG/ML ORASYR GT SCH ×2 (09:39→21:51)
[2020-11-08] MEDS: TAMSULOSIN 0.4 MG CAP GT SCH (09:39)
[2020-11-08] MEDS: ASCORBIC ACID 500 MG TAB GT SCH ×2 (09:39→21:52)
[2020-11-08] MEDS: CEFEPIME 1,000 MG in DEXTROSE 5% 50 ML IV SCH (09:43)
[2020-11-08] MEDS: VANCOMYCIN 500 MG in DEXTROSE 5% 100 ML IV SCH (11:30)
[2020-11-08 12:00] VITALS: BP 139/69
[2020-11-08] MEDS: GAUZE TP SCH (14:04)
[2020-11-08] MEDS: THERAHONEY GEL 42.5 GM TP SCH (14:05)
[2020-11-08 16:00] VITALS: BP 126/58
[2020-11-08 20:00] VITALS: BP 101/29
[2020-11-08] MEDS: LATANOPROST 0.005% OP 2.5 ML BTL BOTH EYES SCH (21:00)
[2020-11-08] MEDS: FLUCONAZOLE 100 MG TAB GT SCH (21:50)
[2020-11-08] MEDS: SIMVASTATIN 20 MG TAB GT SCH (21:52)
[2020-11-09] VITALS: BP 120/62
[2020-11-09 04:00] VITALS: BP 105/30
[2020-11-09] MEDS: BLOOD GLUCOSE MONITORING 1 DEV DEV FS SCH ×3 (07:12→16:47)
[2020-11-09 07:33] LABS: BASOPHILS % (AUTO) 0.2 % (0.0-2.0); EOSINOPHILS % (AUTO) 0.1 % (0.0-4.0); HEMATOCRIT 29.1 % (36-48); LYMPHOCYTES # (AUTO) 0.8 K/uL (2.5-16.5); LYMPHOCYTES % (AUTO) 12.4 % (20.5-51.1); MEAN CORPUSCULAR HEMOGLOBIN 27 pg (27-31); MEAN CORPUSCULAR HGB CONC 31 g/dL (33-37); MEAN CORPUSCULAR VOLUME 87.4 fL (80-94); MONOCYTES # (AUTO) 0.4 K/uL (0.8-1.0); MONOCYTES % (AUTO) 6.1 % (1.7-9.3); NEUTROPHILS # (AUTO) 5.3 K/uL (1.8-7.7); NEUTROPHILS % (AUTO) 81.2 % (42.2-75.2); PLATELET COUNT (AUTO) 176 K/uL (140-450); RED BLOOD CELL COUNT(AUTO) 3.33 MIL/uL (4.20-5.40); WHITE BLOOD COUNT (AUTO) 6.6 K/uL (4.8-10.8)
[2020-11-09 07:47] LABS: ANION GAP 11.5 (8-16); CREATININE 0.7 mg/dL (0.6-1.3); POTASSIUM 4.5 mmol/L (3.5-5.1)
[2020-11-09] MEDS ORDERED: LATANOPROST 0.005% OP 2.5 ML BTL BOTH EYES SCH (07:59)
[2020-11-09 08:00] VITALS: BP 118/61
[2020-11-09] MEDS: VALPROIC ACID 250 MG/5 ML UDC GT SCH ×3 (08:15→16:52)
[2020-11-09] MEDS: DOCUSATE 100 MG/10 ML UDC GT SCH ×2 (08:22→21:00)
[2020-11-09] MEDS: APIXABAN 2.5 MG TAB GT SCH ×2 (08:24→21:00)
[2020-11-09] MEDS: metFORMIN 500 MG TAB GT SCH ×2 (08:25→21:00)
[2020-11-09] MEDS: TAMSULOSIN 0.4 MG CAP GT SCH (08:25)
[2020-11-09] MEDS: ASCORBIC ACID 500 MG TAB GT SCH ×2 (08:26→21:00)
[2020-11-09] MEDS: ZINC SULF 220 MG CAP PO SCH (08:26)
[2020-11-09] MEDS: FAMOTIDINE 20 MG TAB GT SCH (08:26)
[2020-11-09] MEDS: levETIRAcetam 100 MG/ML ORASYR GT SCH ×2 (08:31→21:00)
[2020-11-09 12:00] VITALS: BP 117/63
[2020-11-09] MEDS: GAUZE TP SCH (14:00)
[2020-11-09] MEDS: THERAHONEY GEL 42.5 GM TP SCH (14:00)
[2020-11-09 16:00] VITALS: BP 115/70
[2020-11-09 20:00] VITALS: BP 121/59
[2020-11-09] MEDS: FLUCONAZOLE 100 MG TAB GT SCH (21:00)
[2020-11-09] MEDS: SIMVASTATIN 20 MG TAB GT SCH (21:00)
[2020-11-10] VITALS: BP 100/57
[2020-11-10 04:00] VITALS: BP 105/60
[2020-11-10] MEDS: BLOOD GLUCOSE MONITORING 1 DEV DEV FS SCH ×3 (06:20→16:28)
[2020-11-10 07:35] LABS: BASOPHILS % (AUTO) 0.3 % (0.0-2.0); HEMATOCRIT 28.9 % (36-48); LYMPHOCYTES % (AUTO) 16.1 % (20.5-51.1); MEAN CORPUSCULAR HEMOGLOBIN 27 pg (27-31); MEAN CORPUSCULAR HGB CONC 31 g/dL (33-37); MEAN CORPUSCULAR VOLUME 86.9 fL (80-94); MONOCYTES # (AUTO) 0.4 K/uL (0.8-1.0); MONOCYTES % (AUTO) 5.5 % (1.7-9.3); NEUTROPHILS % (AUTO) 78.1 % (42.2-75.2); PLATELET COUNT (AUTO) 185 K/uL (140-450); RED BLOOD CELL COUNT(AUTO) 3.33 MIL/uL (4.20-5.40); RED CELL DISTRIBUTION WIDTH 22.4 % (11.6-13.7); WHITE BLOOD COUNT (AUTO) 6.5 K/uL (4.8-10.8)
[2020-11-10 07:40] LABS: ANION GAP 9.2 (8-16); CARBON DIOXIDE 32.4 mmol/L (21-32); CREATININE 0.6 mg/dL (0.6-1.3); POTASSIUM 4.6 mmol/L (3.5-5.1)
[2020-11-10 08:00] VITALS: BP 131/55
[2020-11-10] MEDS: DOCUSATE 100 MG/10 ML UDC GT SCH (09:43)
[2020-11-10] MEDS: levETIRAcetam 100 MG/ML ORASYR GT SCH (09:44)
[2020-11-10] MEDS: VALPROIC ACID 250 MG/5 ML UDC GT SCH ×3 (09:44→16:28)
[2020-11-10] MEDS: FAMOTIDINE 20 MG TAB GT SCH (09:44)
[2020-11-10] MEDS: TAMSULOSIN 0.4 MG CAP GT SCH (09:44)
[2020-11-10] MEDS: ASCORBIC ACID 500 MG TAB GT SCH (09:44)
[2020-11-10] MEDS: ZINC SULF 220 MG CAP PO SCH (09:44)
[2020-11-10] MEDS: metFORMIN 500 MG TAB GT SCH (09:44)
[2020-11-10] MEDS: APIXABAN 2.5 MG TAB GT SCH (09:45)
[2020-11-10] MEDS ORDERED: FLUC200T PO (11:05)
[2020-11-10 12:00] VITALS: BP 102/58
[2020-11-10] MEDS: THERAHONEY GEL 42.5 GM TP SCH (13:50)
[2020-11-10] MEDS: GAUZE TP SCH (13:50)
[2020-11-10 16:00] VITALS: BP 107/52
== END 2020-11-10 20:00 | DRG 871 ==
LOC: MED 09:50 → MTU 12:16
PROVIDERS: ADMIT Hospitalist; ATTEND Hospitalist
DX: A41.9 Sepsis, unspecified organism (principal); G93.41 Metabolic encephalopathy; E43 Unspecified severe protein-calorie malnutrition; E87.0 Hyperosmolality and hypernatremia; B37.49 Other urogenital candidiasis; J98.11 Atelectasis; E11.51 Type 2 diabetes mellitus with diabetic peripheral angiopathy without gangrene; Z66 Do not resuscitate; G40.909 Epilepsy, unspecified, not intractable, without status epilepticus; I10 Essential (primary) hypertension; I25.10 Atherosclerotic heart disease of native coronary artery without angina pectoris; J44.9 Chronic obstructive pulmonary disease, unspecified; K21.9 Gastro-esophageal reflux disease without esophagitis; Z20.822 Contact with and (suspected) exposure to COVID-19; E83.42 Hypomagnesemia; E78.5 Hyperlipidemia, unspecified; R13.10 Dysphagia, unspecified; F03.90 Unspecified dementia, unspecified severity, without behavioral disturbance, psychotic disturbance, mood disturbance, and anxiety; L89.152 Pressure ulcer of sacral region, stage 2; Z86.73 Personal history of transient ischemic attack (TIA), and cerebral infarction without residual deficits; Z93.1 Gastrostomy status; Z79.84 Long term (current) use of oral hypoglycemic drugs; Z79.899 Other long term (current) drug therapy; Z86.711 Personal history of pulmonary embolism; Z86.74 Personal history of sudden cardiac arrest; Z68.30 Body mass index [BMI] 30.0-30.9, adult
CPT/HCPCS: 36415; 36600; 70450; 71045; 76770; 80048; 80053; 80202; 81001; 82550; 82728; 82803; 82948; 83605; 83615; 83735; 83880; 84100; 84484; 85025; 85379; 85384; 85610; 85730; 86140; 87040; 87081; 87086; 87420; 87804; 93005; 99291; J0692; J0696; J2185; J3370; J7030; J7060; U0003